=== PATIENT | female | born 1960 | race Caucasian/White ===

== ENCOUNTER 2021-06-25 14:07 | Outpatient (CLI) | payer BC, SELFPAY ==
--- NOTE | ~2021-06-25 | US_ITS ---
EXAMINATION: US arterial ankle brachial ind DATE: 06/25/2021 14:40 INDICATION: Lower limb pain with numbness and tingling in the bilateral feet. TECHNIQUE: Segmental pressures and plethysmographic and Doppler waveforms of the brachial and lower e xtremity arteries were obtained. COMPARISON: None. FINDINGS: Right and left brachial artery pressures of 128 mm Hg and 140 mm Hg, respectively, are concordant (no rmal difference <= 30 mmHg). The right ankle-brachial index (CARMITA) is 0.83 (normal >= 0.9-1.0). The right great toe-brachial index (TBI) is 0.50 (normal >= 0.65). Arterial Doppler waveforms are biphasic with brisk systolic upstrokes at both the right posterior tibial and dorsalis pedis arteries. The left CARMITA is 0.85. The left TBI is 0.74. Arterial Doppler waveforms are biphasic with brisk systol ic upstrokes at both the left posterior tibial and dorsalis pedis arteries. IMPRESSION: 1. Mild arterial occlusive disease to the bilateral lower limbs with mildly decreased bilateral ABIs and mildly decreased right TBI. Reviewed, dictated and finalized at location A. IMPRESSION: 1. Mild arterial occlusive disease to the bilateral lower limbs with mildly dec reased bilateral ABIs and mildly decreased right TBI.
== END 2021-06-25 14:08 | disposition home or self-care (01) ==
LOC: ANHIMG 14:15
PROVIDERS: PCP Nurse Practitioner Adult Health; Visit Provider Nurse Practitioner Adult Health
DX: M79.669 Pain in unspecified lower leg (principal); I70.209 Unspecified atherosclerosis of native arteries of extremities, unspecified extremity
CPT/HCPCS: 93922

== ENCOUNTER 2023-01-22 12:51 | Inpatient (IN) | payer BC, SELFPAY ==
[2023-01-22] VITALS (15 sets, daily range): BP systolic 118–137; BP diastolic 64–84; PULSE 96–117; RESP 13–34; TEMP 36.2–37.1; O2SAT 96–98; BMI 25.4
--- NOTE | ~2023-01-22 | CT_ITS ---
EXAMINATION: CT abdomen pelvis w con DATE: 01/22/2023 14:09 INDICATION: Right lower quadrant abdominal pain. Epigastric pressure. Nausea and vomiting. TECHNIQUE: Computed tomography (CT) of the abdomen and pelvis was performed with 100 CC Omnipaque 350 intravenous contrast. Automated exposure control and iterative reconstruction technique were employe d. Exam dose: 362.47 mGy-cm total exam DLP. COMPARISON: 09/2017 CT abdomen pelvis FINDINGS: The lung bases are clear. Normal heart size. No pericardial or pleural effusion. Small sliding hiatal hernia. Status post cholecystectomy. No hepatic, splenic, pancreatic, and adrenal or suspicious renal space o ccupying mass lesion. There is a small right renal cyst. There is a partially calcified exophytic low er pole left renal cyst Approximately 3.5 mm lower pole nonobstructing left renal calculus. Suggestion of a subtle pinpoint n onobstructing lower pole right renal calculus. No ureteral calculus or hydroureteronephrosis. The uri nary bladder is unremarkable. Normal caliber and atherosclerotic calcification of the abdominal aorta and iliac arteries. No intrap eritoneal or retroperitoneal or pelvic mass lesion or adenopathy or ascites. Up to 3 subcentimeter mildly dilated small bowel segments with air-fluid levels are noted into the pe lvic area, with transition in the right lower quadrant. There is some edema of the mesentery in the r ight lower quadrant. There is mild free fluid in the right paracolic gutter and dependent pelvis. Retained cecal mesentery with medially directed cecum overlying the midline of the abdomen.. Status post hysterectomy. Bladder unremarkable. Included skeletal structures are unremarkable. IMPRESSION: Partial small bowel obstruction suggested transition point in the right lower quadrant, with some edema of the mesentery in this region Minimal ascites 3.5 mm lower pole left renal nonobstructing calculus and suggestion of subtle pinpoint nonobstructing lower pole right renal calculus Status post cholecystectomy Small sliding hiatal hernia Reviewed, dictated and finalized at Location A. Reviewed, dictated and finalized at location B. IMPRESSION: Partial small bowel obstruction suggested transition point in the right lower quadrant, with some edema of the mesentery in this region Minimal ascites 3.5 mm lower pole left renal nonobstructing calculus and suggestion of subtle p inpoint nonobstructing lower pole right renal calculus Status post cholecystectomy Small sliding hiatal hernia
--- NOTE | ~2023-01-22 | XR_ITS ---
EXAMINATION: XR sm bowel follow through WS DATE: 01/23/2023 12:30 INDICATION: Small bowel obstruction. TECHNIQUE: Oral contrast was administered, and a time course of radiographs of the abdomen was obtain ed. Fluoroscopy of the small bowel was not performed. Fluoroscopy exposure time was 0 minutes. The to tania number of images was 5. COMPARISON: CT abdomen and pelvis 01/22/2023 FINDINGS: Surgical clips in the right upper quadrant are likely from cholecystectomy. There are multiple dilate d loops of small bowel. The distal small bowel is decompressed. The colon is decompressed. All of the contrast remains within the stomach and dilated small bowel at 4 hours. IMPRESSION: 1. High-grade small bowel obstruction. Reviewed, dictated and finalized at location A.
--- NOTE | ~2023-01-22 | CT_ITS ---
EXAMINATION: CT abdomen pelvis wo con DATE: 01/28/2023 12:46 INDICATION: Abdominal swelling. TECHNIQUE: Computed tomography (CT) of the abdomen and pelvis was performed without intravenous contr ast. Automated exposure control and iterative reconstruction technique were employed. The dose-length product was 440.62 mGy-cm. COMPARISON: CT abdomen and pelvis 01/22/2023 FINDINGS: There is mild emphysema. A calcified left lung nodule is consistent with old granulomatous disease. There are small pleural effusions, right worse than left. There are airspace opacities with volume loss and air bronchograms involving right middle lobe and right lower lobe, likely atelectasis . There is mild atelectasis in inferior left lung. The heart size is normal. There are coronary arter y calcifications. No pericardial effusion. The liver and spleen are normal. There are changes of chol ecystectomy. The pancreas and adrenal glands are normal. There are two 2 mm stones in right kidney. T here are 5 mm and 1 mm stones in left kidney. There is an 11 mm peripherally calcified mass of left k idney, likely benign. There are dilated loops of small bowel with out focal transition point. The regan endix is normal. There is a small volume of ascites. There is gas in the bladder lumen, likely from r ecent instrumentation. Anterior skin nallely are noted. IMPRESSION: 1. Small volume of ascites. 2. Small pleural effusions. 3. Dilated small bowel without focal transition point, likely adynamic ileus. Reviewed, dictated and finalized at location A.
--- NOTE | ~2023-01-22 | XR_ITS ---
EXAM: XR abdomen/kub 1V DATE: 01/26/2023 18:26 HISTORY: distention . COMPARISON: None available. FINDINGS: Cholecystectomy clips. New midline skin nallely. Right basilar atelectasis/consolidation a nd possible small right pleural effusion. Multiple loops dilated small bowel, overall slightly decrea sed in diameter since the previous study. No organomegaly. No abnormal abdominal calcification. Degen erative changes in the spine and hips. IMPRESSION: Decreasing small bowel dilation, likely representing improving obstruction. Reviewed, dictated and finalized at location K. IMPRESSION: Decreasing small bowel dilation, likely representing improving obst ruction.
--- NOTE | ~2023-01-22 | XR_ITS ---
Supine views of the abdomen Clinical history: Small bowel obstruction Findings: Multiple dilated loops of small bowel are present, predominantly in the left abdomen and lo wer abdomen. No free air evident. Cholecystectomy clips noted. No abnormal mass lesion or calcificati on is seen. Osseous structures are intact. Impression: Small bowel obstruction. Reviewed, dictated and finalized at [facility]. Impression: Small bowel obstruction.
--- NOTE | 2023-01-22 13:17 | ECG_ITS ---
Measurements Intervals [place] Rate: 113 P: 67 TN: 152 QRS: 88 QRSD: 116 T: 41 QT: 329 QTc: 453 Interpretive Statements SINUS TACHYCARDIA POSSIBLE LEFT ATRIAL ENLARGEMENT RIGHT BUNDLE BRANCH BLOCK BASELINE ARTIFACT- AVR, V4 ABNORMAL ECG NO PREVIOUS ECG AVAILABLE FOR COMPARISON Electronically Signed On 01-22-2023 16:16:42 CDT by Ervin Davalos D.O.
[2023-01-22] MEDS: MORPHINE SULFATE (*CRX) 2 MG/ML INJ IV PUSH (13:38)
[2023-01-22 13:41] LABS: Basophils Percent Auto 0.1 % (0.2-1.2); Eosinophils Percent Auto 0.2 % (0-4.4); Hematocrit 41.3 % (37.0-47.0); Hemoglobin 14.3 g/dL (12.0-15.0); Immature Granulocyte Absolute 0.05 K/mm3 (0.00-0.031); Immature Granulocyte Percent A 0.4 % (0-0.5); Lymphocytes Absolute Auto 1.72 K/mm3 (0.9-3.2); Lymphocytes Percent Auto 12.1 % (18.3-44.2); Mean Corpuscular HGB Conc 34.6 g/dl (32-36); Mean Corpuscular Volume 95.4 fl (80-100); Mean Platelet Volume 9.5 fl (7.4-10.4); Monocytes Absolute Auto 0.6 K/mm3 (0.1-0.6); Monocytes Percent Auto 4.4 % (2.6-8.5); Neutrophils Absolute Auto 11.8 K/mm3 (1.3-6.7); Neutrophils Percent Auto 82.8 % (45.5-73.1); Platelet Count Result 263 k/mm3 (150-375); Red Blood Count 4.33 M/mm3 (4.2-5.4); Red Cell Distribution Width 12.6 % (11.5-14.5); White Blood Count 14.3 K/mm3 (4.5-10.0)
--- NOTE | 2023-01-22 13:41 | ED.GENADULT ---
HPI - General Adult General Chief complaint: Abdominal Pain Stated complaint: abd pain Time Seen by Provider: 01/22/23 13:11 History of Present Illness HPI narrative: Patient is a 62-year-old female who presents ER with epigastric pain. Radiates to her back. Aching. Woke up with it at 4 AM. Has history of gastric ulcers and she thought it may be related. She did have some nausea and vomiting. No dark blood and no coffee-ground appearance. No urinary frequency urgency or dysuria. No urge to have a bowel movement. No diarrhea. Related Data Home Medications Medication Instructions Recorded Confirmed clopidogrel 75 mg tablet 75 mg PO DAILY 01/22/21 01/22/23 lisinopril 5 mg tablet 5 mg PO DAILY 01/22/21 01/22/23 metformin 850 mg tablet 850 mg PO BID 01/22/21 01/22/23 montelukast 10 mg tablet 10 mg PO HS 01/22/21 01/22/23 famotidine 20 mg tablet 20 mg PO DAILY 01/22/23 01/22/23 rosuvastatin 20 mg tablet 20 mg PO HS 01/22/23 01/22/23 valacyclovir 500 mg tablet 500 mg PO HS 01/22/23 01/22/23 Allergies Allergy/AdvReac Type Severity Reaction Status Date / Time hydrocodone AdvReac Severe NAUSEA AND Verified 01/22/23 13:41 VOMITING Review of Systems Review of Systems: All systems reviewed & are unremarkable except as noted in HPI and below Constitutional: Constitutional: Denies chills and Denies fever(s) Cardiovascular: Cardiovascular: Denies chest pain, Denies rapid heart rate and Denies radiating jaw, neck or arm pain Respiratory: Respiratory: Denies cough, Denies dyspnea and Denies wheezing Gastrointestinal: Gastrointestinal: Reports abdominal pain, Denies constipation, Denies diarrhea, Reports nausea and Reports vomiting Genitourinary: Genitourinary: Denies nocturia, Denies dysuria and Denies flank pain PMF Past Medical History Medical History COPD (chronic obstructive pulmonary disease) Coronary artery disease Diabetes History of TIA (transient ischemic attack) Reported history of multiple TIAs over 10 years ago and subsequently was started on Plavix Irritable bowel Surgical History Surgical History History of cholecystectomy Open cholecystectomy History of total abdominal hysterectomy and bilateral salpingo-oophorectomy Family History Family History Mother Hypertension Sibling Breast cancer Diabetes mellitus Hypertension Social History Social History Smoking status: Heavy tobacco smoker Tobacco type: cigarettes Alcohol intake: never Substance use: never Substance use type: does not use Lack of Transportation: No Lack of Food: Sometimes True Current Housing: I Have Housing Concerned About Future Housing: No Difficulty Paying Gas/Electric Bills: YES Difficulty Paying for Meds: No Currently Unemployed: No Education: Decline to Answer Difficulty w/ Childcare or Family Care: No Spiritual care concerns: No Exam Narrative: GENERAL: Well-appearing, well-nourished, and in no acute distress. HEAD: Normocephalic, atraumatic. EYES: PERRL and EOMI. ENT: Mucous membranes moist. CHEST: Clear to auscultation. No respiratory distress. HEART: Regular rate and rhythm. Normal peripheral pulses. ABDOMEN: Soft, tender to palpation right lower quadrant with guarding, nondistended. EXTREMITIES: Normal range of motion. No edema. SKIN: Warm, dry, no rash. NEURO: Alert and oriented x3. PSYCH: Normal mood and affect. Course Course Emergency Course: Patient resting comfortably. Informed of results. Admit to hospitalist service. General surgery consulting. No need for NG tube at this time as patient is not vomiting. Vital Signs Vital signs: Vital Signs Temperature 97.1 F L 01/22/23 13:00 Pulse Rate 117 H 01/22/23 13:00 Respiratory Rate 16
[2023-01-22 13:48] LABS: Alanine Aminotransferase 19 U/L (6-35); Albumin Level 4.6 g/dL (3.5-5.1); Alkaline Phosphatase 72 U/L (38-126); Anion Gap 9 mmol/L (8-16); Aspartate Amino Transferase 26 U/L (14-36); Bilirubin,Total 0.6 mg/dL (0.2-1.3); Blood Urea Nitrogen 8 mg/dL (7-17); Calcium 9.7 mg/dL (8.4-10.2); Carbon Dioxide 26 mmol/L (22-30); Chloride 101 mmol/L (98-107); Estimated CRCL calculation 86 ml/min; Estimated Glomerular Filt Rate > 60; Glucose 177 mg/dL (65-110); Lipase 108 U/L (23-300); Potassium 4.1 mmol/L (3.4-5.0); Sodium 136 mmol/L (137-145)
[2023-01-22 13:54] LABS: Partial Thromboplastin Time 24.9 SECONDS (22.3-36.8); Prothrombin Time 12.8 Seconds (11.1-14.7)
[2023-01-22] MEDS: PIPERACILLN/TAZ 3.375GM/NS50ML 3.375 GM/50 ML BAG IVPB ×2 (16:05→23:53)
--- NOTE | 2023-01-22 16:14 | PM.CNGS ---
Assessment and Plan Assessment and plan (1) Small bowel obstruction: Code(s): K56.609 - Unspecified intestinal obstruction, unspecified as to partial versus complete obstruction Status: Acute Assessment and Plan: Patient presents with CT evidence of a small bowel obstruction. Previous surgeries include a total abdominal hysterectomy and open cholecystectomy, which could suggest possible adhesions as a cause. Her WBC count was 14,300 on admission. Will add a lactic acid and repeat labs tomorrow morning. Recommend continuing IV Zosyn for now. No diffuse peritoneal signs on exam. She is is not having any nausea and no vomiting since this morning. Will defer NG tube placement at this time, but would recommend to continue conservative management with bowel rest, IV fluid hydration, and analgesics as needed. Will also order a water-soluble small bowel follow through in the morning to further evaluate. (2) Diabetes: Code(s): E11.9 - Type 2 diabetes mellitus without complications Status: Acute (3) Irritable bowel: Code(s): K58.9 - Irritable bowel syndrome without diarrhea Status: Acute (4) Antiplatelet or antithrombotic long-term use: Code(s): Z79.02 - retirement (current) use of antithrombotics/antiplatelets Status: Acute Assessment and Plan: Recommend holding Plavix for now. (5) Tobacco abuse: Code(s): Z72.0 - Tobacco use Status: Acute Plan I have discussed the patient's case and plan of care with Dr. Delgado. Thank you for allowing us to see the patient in consultation and we will continue to follow along with you. History of Present Illness Consult details Consult date: 01/22/23 Reason for consult: other (Small-bowel obstruction) Requesting physician: Stone Anglin MD Narrative: This is a 62-year-old woman with a history of COPD, type 2 diabetes, IBS, and hypertension who presented to the ER today with complaints of epigastric abdominal pain, vomiting, and bloating starting this morning. She reports waking up around 4:30 a.m. this morning with epigastric abdominal pain. She has a history of gastric ulcers and is taking omeprazole. Initially, she thought the pain could be related to ulcers. She began to feel very bloated and later in the morning developed nausea and had 3 episodes of vomiting. Denies any bloody or coffee-ground emesis. Due to the persistent pain, she came into the ER for evaluation. She presented with a heart rate in the 110's and afebrile. Labs [place] [address] scan of the abdomen and pelvis showed a partial small bowel obstruction with a transition point the right lower quadrant and some edema of the mesentery in this region. Also noted was minimal ascites, small sliding hiatal hernia, and 3.5 mm lower pole left renal nonobstructing calculus. Our service was consulted by the ED physician. She is being admitted to the hospitalist service. The patient is seen in the ER at this time. She denies ever having a bowel obstruction in the past. Previous abdominal surgeries include an open cholecystectomy and total abdominal hysterectomy with bilateral salpingo oophorectomy many years ago. The patient is additionally taking Plavix reportedly for history of multiple TIAs over 10 years ago. Her last dose was around 6:00 a.m. this morning. She is still feeling bloated and does not feel the morphine has helped with her pain, which she rates at a 7/10. Her last bowel movement was yesterday morning and she reports a small amount of flatus this morning. Review of Systems Review of Systems: All systems reviewed & are unremarkable except as noted in HPI and below Constitutional: Constitutional: Reports no additional constitutional complaints, Denies chills, Denies fatigue and Denies fever(s) Eyes: Eyes: Reports no additional eye complaints ENT: Reports system reviewed and no additional complaints, except as documented
[2023-01-22 17:05] LABS: Lactic Acid Reflex 1.5 mmol/L (0.7-2.0)
--- NOTE | 2023-01-22 17:30 | PM.IMHP ---
H&P: HPI History of Present Illness Date/Time: 01/22/23 17:30 Chief Complaint: Abdominal pain. Narrative: This is a pleasant 62-year-old female smoker with history of TIA, hypertension, diabetes, COPD, GERD, and peptic ulcers who presented to the emergency department from home for evaluation of abdominal pain. Patient provides the following history. She felt fine when she went to bed last night. At about 04:00 she was wakened from sleep with significant abdominal bloating and a pressure-like discomfort diffusely around her abdomen and through to the back in a bandlike fashion. She had some nausea with that as well and tried to have a muffin for breakfast this morning though she vomited shortly after eating and she has had [address] of the abdomen pelvis showed a partial small-bowel obstruction with suggestions of a transition point in right lower quadrant and some edema of the mesentery in the same region. She has never had similar symptoms; reports history of open cholecystectomy and hysterectomy many years ago. As she is not currently vomiting she is being placed on bowel rest and hopefully with supportive care this will improve. She has been seen by Dr. Delgado, surgery, and he will be following along. Currently she is feeling a bit better and she does have some bowel sounds on exam. Last bowel movement was sometime yesterday and was normal for her, reportedly she suffers from IBS-D. Review of Systems Review of Systems: Twelve systems were reviewed. No fever, chills, or sweats. No recent cold or flu symptoms. GERD symptoms are well controlled on omeprazole. She has not noticed any blood in the vomit or stools. Recent hemoglobin A1c was 7.9%. She was placed on glimepiride in addition to her metformin recently. She admits that she does not check her glucose much. No blurry vision, polydipsia, or polyuria. Patient reports a history of coronary artery disease but does not recall how she got that diagnosis. She has never had a cardiac catheterization. Presumably stress test. She denies exertional chest pain shortness a breath. She is on clopidogrel but states she was placed on that following the TIA and not an MT. Except as documented, all other systems were reviewed and are negative. [facility] Past Medical History Medical History (Updated 01/22/23 @ 23:02 by Shalini Groves PA-C) Antiplatelet or antithrombotic long-term use Chronic obstructive pulmonary disease Coronary artery disease History of TIA (transient ischemic attack) Reported history of multiple TIAs over 10 years ago and subsequently was started on Plavix Irritable bowel Renal calculus Tobacco abuse Transient ischemic attack Type 2 diabetes mellitus Surgical History Surgical History History of cholecystectomy Open cholecystectomy History of total abdominal hysterectomy and bilateral salpingo-oophorectomy Family History Family History Mother Hypertension Sibling Breast cancer Diabetes mellitus Hypertension Social History Social History (Updated 01/22/23 @ 22:35 by Shalini Groves PA-C) Social History: Surrogate medical decision maker: Russell Mueller, friend. Code status: Full code. Smoking packs per day: 1.5 Smoking cigarettes per day: 30.0 Smoking status: Heavy tobacco smoker Tobacco type: cigarettes Alcohol intake: never Substance use: never Substance use type: does not use Lack of Transportation: No Lack of Food: Sometimes True Current Housing: I Have Housing Concerned About Future Housing: No Difficulty Paying Gas/Electric Bills: YES Difficulty Paying for Meds: No Currently Unemployed: No Education: Decline to Answer Difficulty w/ Childcare or Family Care: No Spiritual care concerns: No Meds Home Medications and Allergies Home Medications Medication Instructions Recorded Confi
--- NOTE | 2023-01-22 17:56 | ADMGEN ---
This patient, Annette Camacho, was admitted to [facility] Surg Room 312-01. Patient/family oriented to hospital policies and general routines including ID bracelet, bed and alarms, visiting hours, pain management, procedures, bathroom and other care routines, personal items, smoking policy, room service/diet, and visiting hours. Information on how to activate the Rapid Response Team has been discussed. Patient/Family are encouraged to report perceived risks to care and to ask questions if they do not understand what they are told or what they should do.
[2023-01-23] VITALS (15 sets, daily range): BP systolic 115–172; BP diastolic 57–122; PULSE 74–105; RESP 14–28; TEMP 36.1–37.4; O2SAT 90–100; BMI 25.0
[2023-01-23] MEDS: ONDANSETRON INJ 4 MG/2 ML VIAL IV PUSH ×2 (00:01→10:47)
[2023-01-23 00:18] LABS: Glucose Point of Care 158 mg/dl (65-105)
[2023-01-23] MEDS: SODIUM CHLORIDE 0.9% IV 1,000 ML 125 ML IV CONT ×3 (01:23→22:03)
[2023-01-23] MEDS: PIPERACILLN/TAZ 3.375GM/NS50ML 3.375 GM/50 ML BAG IVPB ×3 (05:33→19:27)
[2023-01-23 05:49] LABS: Glucose Point of Care 151 mg/dl (65-105)
[2023-01-23 06:25] LABS: Basophils Percent Auto 0.1 % (0.2-1.2); Eosinophils Absolute Auto 0.1 K/mm3 (0-0.3); Eosinophils Percent Auto 0.4 % (0-4.4); Hematocrit 39.8 % (37.0-47.0); Hemoglobin 13.3 g/dL (12.0-15.0); Immature Granulocyte Absolute 0.04 K/mm3 (0.00-0.031); Immature Granulocyte Percent A 0.3 % (0-0.5); Lymphocytes Absolute Auto 2.08 K/mm3 (0.9-3.2); Lymphocytes Percent Auto 18.2 % (18.3-44.2); Mean Corpuscular HGB Conc 33.4 g/dl (32-36); Mean Corpuscular Hemoglobin 32.4 pg (26-34); Mean Corpuscular Volume 97.1 fl (80-100); Mean Platelet Volume 9.5 fl (7.4-10.4); Monocytes Absolute Auto 0.9 K/mm3 (0.1-0.6); Monocytes Percent Auto 7.7 % (2.6-8.5); Neutrophils Absolute Auto 8.4 K/mm3 (1.3-6.7); Neutrophils Percent Auto 73.3 % (45.5-73.1); Platelet Count Result 255 k/mm3 (150-375); Red Cell Distribution Width 12.6 % (11.5-14.5); White Blood Count 11.5 K/mm3 (4.5-10.0)
[2023-01-23 06:45] LABS: Lactic Acid Reflex 0.9 mmol/L (0.7-2.0)
[2023-01-23 06:46] LABS: Anion Gap 6 mmol/L (8-16); Blood Urea Nitrogen 7 mg/dL (7-17); Calcium 8.8 mg/dL (8.4-10.2); Carbon Dioxide 26 mmol/L (22-30); Chloride 106 mmol/L (98-107); Estimated CRCL calculation 71 ml/min; Estimated Glomerular Filt Rate > 60; Glucose 145 mg/dL (65-110); Magnesium 1.9 mg/dL (1.6-2.3); Potassium 4.1 mmol/L (3.4-5.0); Sodium 138 mmol/L (137-145)
[2023-01-23] MEDS: PANTOPRAZOLE SODIUM IV 40 MG VIAL IV PUSH (10:47)
[2023-01-23] MEDS: MORPHINE SULFATE (*CRX) 4 MG/ML INJ IV PUSH (10:55)
[2023-01-23 11:31] LABS: Glucose Point of Care 188 mg/dl (65-105)
--- NOTE | 2023-01-23 14:12 | PM.IMPN ---
Progress Note: A&P Assessment and Plan (1) Small bowel obstruction: Code(s): K56.609 - Unspecified intestinal obstruction, unspecified as to partial versus complete obstruction Status: Acute Assessment and Plan: Patient presents with abdominal pain and found to have small-bowel obstruction on imaging. GI was consulted. NG tube was not placed. Small-bowel series shows high-grade small-bowel obstruction. Surgery is being planned. (2) Type 2 diabetes mellitus: Code(s): E11.9 - Type 2 diabetes mellitus without complications Status: Acute Assessment and Plan: The patient's blood glucose was reviewed on 01/23 Glucose remains reasonably well controlled. Continue AccuCheks covering with sliding scale. Hypoglycemia protocol available as needed. Continue to monitor (3) Antiplatelet or antithrombotic long-term use: Code(s): Z79.02 - care home (current) use of antithrombotics/antiplatelets Status: Acute Assessment and Plan: Patient reported history of multiple TIAs over 10 years ago and subsequently was started on Plavix. Plavix currently on hold. Resume when able. (4) Chronic obstructive pulmonary disease: Code(s): J44.9 - Chronic obstructive pulmonary disease, unspecified Status: Acute Assessment and Plan: No wheezing noted. Continue to follow clinically. (5) Tobacco abuse: Code(s): Z72.0 - Tobacco use Status: Acute Assessment and Plan: Smoking cessation was encouraged and was discussed. (6) Renal calculus: Code(s): N20.0 - Calculus of kidney Status: Acute Assessment and Plan: Nonobstructing renal calculi noted bilaterally, not an acute issue. Subjective Date/time seen: 01/23/23 14:12 Interval history: 62yo female with diabetes and COPD here for abdominal pain found to have SBO. Patient had nausea and vomiting last evening. This has improved. Still with the abdominal pain that is relatively unchanged. No chest pain or shortness of breath. No flatus or bowel movements. Exam Narrative: AF 98.4 135/67 96 14 97%ra Gen - NARD Chest - CTA bilaterally, nml RR CV - RRR S1/S2 Abd -soft. No bowel sounds. Distended and diffusely tender. Ext - No pedal edema Psych - Nml mood and affect Skin - Warm and dry Objective Data Vital Signs Vital Signs: Vital Signs - 24 hr 01/22/23 14:17 01/22/23 16:01 01/22/23 16:15 Temperature Pulse Rate 100 102 H 99 Respiratory Rate 13 16 19 Blood Pressure Pulse Oximetry 97 97 98 Oxygen Delivery 01/22/23 16:16 01/22/23 17:31 01/22/23 22:00 Temperature 97.5 F L 98.7 F Pulse Rate 101 H 96 97 Respiratory Rate 17 16 16 Blood Pressure 127/84 130/76 118/75 Pulse Oximetry 98 98 96 Oxygen Delivery 01/22/23 20:00 01/23/23 00:00 01/23/23 03:57 Temperature 97.8 F 98.4 F Pulse Rate 97 95 96 Respiratory Rate 16 15 14 Blood Pressure 135/70 135/67 Pulse Oximetry 96 96 97 Oxygen Delivery Room Air 01/23/23 11:00 Temperature Pulse Rate Respiratory Rate Blood Pressure Pulse Oximetry Oxygen Delivery Room Air Intake/Output Intake/Output: Intake & Output 01/20/23 01/21/23 01/22/23 01/23/23 23:59 23:59 23:59 23:59 Intake Total 50 1100 Balance 50 1100 Meds/Results Medications: Active Medications Generic Name Dose Route Start Last Admin Trade Name Freq PRN Reason Stop Dose Admin Dextrose 12.5 gm 01/22/23 23:15 Dextrose 50% 25 Gm/50 Ml Syringe IV PUSH PRN PRN Hypoglycemia Protocol Glucagon 1 mg 01/22/23 23:15 Glucagon For Inj 1 Mg Vial IM PRN PRN Hypoglycemia Protocol Glucose 15 gm 01/22/23 23:15 Glucose Oral Gel 15 Gm Of Glucse In 37.5 Gm Tube PO PRN PRN Hypoglycemia Protocol Piperacillin/Tazobactam/Dextrose 3.375 gm in 50 mls @ 100 mls/hr 01/23/23 00:00 01/23/23 12:12 Zosyn 3.375 Gm/Ns 50 Ml IVPB 100 mls/hr Q6HR SUSHMA
--- NOTE | 2023-01-23 14:56 | WPDPN ---
Progress Note: A&P Assessment and Plan (1) Small bowel obstruction: Code(s): K56.609 - Unspecified intestinal obstruction, unspecified as to partial versus complete obstruction Status: Acute Assessment and Plan: Patient is a high-grade small-bowel obstruction with without obvious evidence of perforation or any bowel at this time. This has been going on for over 48hours and so she will have to be managed surgically. Non operative management has successful and a small bowel series shows a high-grade small bowel obstruction without passage of any contrast into the for hours. She is on Plavix but has been held for almost 2 days. Unfortunately this will increase the chances of intraoperative and postoperative bleeding. Also discussed with her the possible risk of bowel resection for any compromised bowel. She understands and agrees to proceed with surgery. Subjective Date/time seen: 01/23/23 14:56 Interval history: Patient is still having abdominal pain. Has had no flatus or bowel movements. Did have some emesis early this morning. Small-bowel series was done showing high-grade its distal small-bowel obstruction. White blood cell count is decreased and she is on IV antibiotics. She remains hemodynamically stable. Review of Systems Review of Systems: The remainder of the review of systems to include constitutional, HEENT, cardiovascular, respiratory, GI, , integumentary, musculoskeletal, endocrine, immunologic, hematologic, psychiatric, and neurologic are all negative except for which is mentioned above in the HPI. Exam Const: General: comfortable and no acute distress Neck: Neck: supple and no JVD Resp: Effort & Inspection: normal respiratory effort Auscultation: clear to auscultation bilaterally Cardio: Rate: regular rate Rhythm: regular rhythm GI: GI Palp: Yes Soft to palpation Other: Abdomen is soft and moderately distended. It is soft to palpation without severe tenderness. No generalized peritoneal signs or guarding is noted. Neuro: Speech: normal speech Sensory Exam: normal sensation Extrem: General: normal to inspection Psych: Mental Status: mental status grossly normal Affect: normal affect Objective Data Vital Signs Vital Signs: Vital Signs - 24 hr 01/22/23 16:01 01/22/23 16:15 01/22/23 16:16 Temperature Pulse Rate 102 H 99 101 H Respiratory Rate 16 19 17 Blood Pressure 127/84 Pulse Oximetry 97 98 98 Oxygen Delivery 01/22/23 17:31 01/22/23 22:00 01/22/23 20:00 Temperature 36.4 C L 37.1 C Pulse Rate 96 97 97 Respiratory Rate 16 16 16 Blood Pressure 130/76 118/75 Pulse Oximetry 98 96 96 Oxygen Delivery Room Air 01/23/23 00:00 01/23/23 03:57 01/23/23 11:00 Temperature 36.6 C 36.9 C Pulse Rate 95 96 Respiratory Rate 15 14 Blood Pressure 135/70 135/67 Pulse Oximetry 96 97 Oxygen Delivery Room Air Intake/Output Intake/Output: Intake & Output 01/20/23 01/21/23 01/22/23 01/23/23 23:59 23:59 23:59 23:59 Intake Total 50 1100 Balance 50 1100 Meds/Results Medications: Active Medications Generic Name Dose Route Start Last Admin Trade Name Freq PRN Reason Stop Dose Admin Dextrose 12.5 gm 01/22/23 23:15 Dextrose 50% 25 Gm/50 Ml Syringe IV PUSH PRN PRN Hypoglycemia Protocol Glucagon 1 mg 01/22/23 23:15 Glucagon For Inj 1 Mg Vial IM PRN PRN Hypoglycemia Protocol Glucose 15 gm 01/22/23 23:15 Glucose Oral Gel 15 Gm Of Glucse In 37.5 Gm Tube PO PRN PRN Hypoglycemia Protocol Piperacillin/Tazobactam/Dextrose 3.375 gm in 50 mls @ 100 mls/hr 01/23/23 00:00 01/23/23 12:12 Zosyn 3.375 Gm/Ns 50 Ml IVPB 100 mls/hr Q6HR SUSHMA Administration Acetaminophen 1,000 mg in 100 mls @ 400 mls/hr 01/22/23 16:01 Ofirmev 1,000 Mg Ivpb IVPB 01/23/23 16:00 Q6H PRN Mild Pain (1-3) or Fever Sodium Chloride 1,000 mls @ 125 mls/hr 01/22/23 16:05 01/23/23 10
[2023-01-23 16:48] LABS: Glucose Point of Care 161 mg/dl (65-105)
--- NOTE | 2023-01-23 16:57 | WPDANESEPPF ---
Anes - Initial Pre Proc Eval Procedure: Operation Date: 01/23/23 17:00 Proposed Procedures p Exploratory Laparotomy for Small Bowel Obstruction - Dwayne Delgado MD Date/Time: 01/23/23 16:57 Surgeon: Dolores Aldana MD Pre Op Diagnosis: SBO Patient Data Age: 62 Gender: F Height: 1.52 m Weight: 58.1 kg Last Vital Signs Temp 36.2 C L 01/23/23 14:00 Pulse 75 01/23/23 14:00 Resp 22 H 01/23/23 14:00 BP 139/78 01/23/23 14:00 Pulse Ox 96 01/23/23 14:00 O2 Del Method Room Air 01/23/23 11:00 Allergies Allergy/AdvReac Type Severity Reaction Status Date / Time hydrocodone AdvReac Severe NAUSEA AND Verified 01/22/23 13:41 VOMITING Home Medications Medication Instructions Recorded Confirmed Type clopidogrel 75 mg tablet 75 mg PO DAILY 01/22/21 01/22/23 History lisinopril 5 mg tablet 5 mg PO DAILY 01/22/21 01/22/23 History metformin 850 mg tablet 850 mg PO BID 01/22/21 01/22/23 History montelukast 10 mg tablet 10 mg PO HS 01/22/21 01/22/23 History famotidine 20 mg tablet 20 mg PO DAILY 01/22/23 01/22/23 History rosuvastatin 20 mg tablet 20 mg PO HS 01/22/23 01/22/23 History valacyclovir 500 mg tablet 500 mg PO HS 01/22/23 01/22/23 History Laboratory Tests 01/22/23 01/23/23 01/23/23 16:49 00:13 05:45 WBC RBC Hgb Hct MCV MCH MCHC RDW Plt Count MPV Immature Gran % (Auto) Neut % (Auto) Lymph % (Auto) [place] % (Auto) Eos % (Auto) Baso % (Auto) Lymph # (Auto) [place] # (Auto) Eos # (Auto) Baso # (Auto) Abs Immat Gran (auto) Absolute Neuts (auto) Absolute Nucleated RBC Nucleated RBC % Sodium Potassium Chloride Carbon Dioxide Anion Gap BUN Creatinine Estim Creat Clear Calc Estimated GFR Glucose POC Capillary Glucose 158 mg/dl H mg/dl 151 mg/dl H mg/dl (65-105) (65-105) Lactic Acid 1.5 mmol/L mmol/L (0.7-2.0) Calcium Magnesium Blood Type Antibody Screen 01/23/23 01/23/23 01/23/23 05:55 05:55 05:55 WBC 11.5 K/mm3 H K/mm3 (4.5-10.0) RBC 4.10 M/mm3 L M/mm3 (4.2-5.4) Hgb 13.3 g/dL g/dL (12.0-15.0) Hct 39.8 % % (37.0-47.0) MCV 97.1 fl fl (80-100) MCH 32.4 pg pg (26-34) MCHC 33.4 g/dl g/dl (32-36) RDW 12.6 % % (11.5-14.5) Plt Count 255 k/mm3 k/mm3 (150-375) MPV 9.5 fl fl (7.4-10.4) Immature Gran % (Auto) 0.3 % % (0-0.5) Neut % (Auto) 73.3 % H % (45.5-73.1) Lymph % (Auto) 18.2 % L % (18.3-44.2) [place] % (Auto) 7.7 % % (2.6-8.5) Eos % (Auto) 0.4 % % (0-4.4) Baso % (Auto) 0.1 % L % (0.2-1.2) Lymph # (Auto) 2.08 K/mm3 K/mm3 (0.9-3.2) [place] # (Auto) 0.9 K/mm3 H K/mm3 (0.1-0.6) Eos # (Auto) 0.1 K/mm3 K/mm3 (0-0.3) Baso # (Auto) 0.0 K/mm3 K/mm3 (0.0-0.1) Abs Immat Gran (auto) 0.04 K/mm3 H K/mm3 (0.00-0.031) Absolute Neuts (auto) 8.4 K/mm3 H K/mm3 (1.3-6.7) Absolute Nucleated RBC 0.0 K/mm3 K/mm3 (0.0-0.012) Nucleated RBC % 0.0 % % (0.0-0.2) Sodium 138 mmol/L mmol/L (137-145) Potassium 4.1 mmol/L mmol/L (3.4-5.0) Chloride 106 mmol/L mmol/L (98-107) Carbon Dioxide 26 mmol/L mmol/L (22-30) Anion Gap 6 mmol/L L mmol/L (8-16) BUN 7 mg/dL mg/dL (7-17) Creatinine 0.50 mg/dL L mg/dL (0.7-1.0) Estim Creat Clear Calc 71 ml/min ml/min Estimated GFR
[2023-01-23] MEDS: LACTATED RINGERS 1,000 ML 30 ML IV CONT ×2 (17:02→19:05)
--- NOTE | 2023-01-23 17:04 | WPDHPUPDATE1 ---
History and Physical Update Update Date/Time: 01/23/23 17:04 History and Physical has been reviewed, including an updated exam of the patient. There are NO changes in the patient's condition. Risks, benefits, and alternatives have been discussed and questions answered. Patient agrees to proceed with procedure.
[2023-01-23] MEDS: BUPivacaine HCL 0.5% PF 30 ML VIAL INFILTRATE (18:08)
--- NOTE | 2023-01-23 18:51 | W.PM.PROC2 ---
Procedure Note - Detailed Date of Procedure 01/23/23 Pre-op Diagnosis High-grade small-bowel obstruction. Post-op Diagnosis Same Procedure Performed Exploratory laparotomy with abdominal adhesiolysis. Surgeon Dwayne Delgado MD [employer] TOAN Raoy Anesthesia General Indications Patient is a 62-year-old female who presented with abdominal pain and nausea and vomiting. CT scan showed a distal small-bowel obstruction. She had a small bowel series showed a high-grade small bowel obstruction without any contrast passing into the colon at 4 hrs. Findings single adhesion of the omentum and tip of the appendix to the mesentery in the right lower quadrant trapping a loop of the distal jejunum causing constriction. There was no twisting of the mesentery and no ischemia of the bowel. Some adhesions of the omentum to the right upper quadrant which were not released. Description of Procedure After informed consent was obtained patient brought to the operating room she is placed in supine position and general endotracheal anesthesia was administered. A nasogastric tube was placed to decompress the stomach and a Aguilar catheter placed to decompress the bladder. Time-out was then performed correctly identifying the patient as well as procedure to be performed. She was already on scheduled IV antibiotics. I then made a midline incision starting in the mid epigastric region extending it down to [facility] between the umbilicus and pubic symphysis. Dissection was carried down through the subcutaneous tissue electrocautery and the abdomen was entered just above the umbilicus. Once inside the abdomen I aspirated about 500cc of clear abbasi ascites fluid. I then opened the midline fascia to mesh length of the skin incision with electrocautery. Retractors were placed and then the small bowel was eviscerated. None of the small bowel appeared to be necrotic. I followed the small bowel to a constriction and a single adhesion of the omentum and tip of the appendix to the peritoneum in the right lower quadrant the abdomen. Had trapped a loop of the distal jejunum but the mesentery to the loop did not twist. With electrocautery I divided this adhesion which relieved the constriction. I then ran the small bowel from the distal jejunum proximally all the way to the ligament [place]. No other adhesions were seen. I then milked the small bowel contents back up into the stomach and had aspirated out with the nasogastric tube. A nasogastric tube was in the fundus stomach and was taped in place at that length. I then irrigated out the abdomen copious amounts of sterile saline solution. Hemostasis was excellent. I then proceeded to close the abdomen utilizing looped 1. PDS suture was started at each end of the incision then run to the middle just below the umbilicus. Two sutures then tied together. I then injected Exparel liposomal bupivacaine mix of Marcaine in the subcutaneous tissues around the incision for local anesthetic effect. The subcutaneous tissues then closed utilizing interrupted 3-0 Vicryl sutures and then the skin edges were approximated lysing skin nallely. The incision was then cleaned and a op site was used for final dressing. The patient tolerated the procedure well no complications. All sponges, needles, and instrument counts were correct at the end procedure. EBL was 50___cc. The patient was awakened and taken to recovery in stable and satisfactory condition. Implants None Estimated Blood Loss 50 Drains No Packing No Pathology None sent Complications No immediate complications Condition Stable Disposition PACU [facility] Billing Surgery - Charge Forward: Surgery Billing
[2023-01-23] MEDS: fentaNYL CITRATE INJ (*CRX) 100 MCG/2 ML VIAL 25 MCG IV PUSH ×3 (18:53→19:40)
--- NOTE | 2023-01-23 19:17 | SUR.PHASEI ---
1916: Simple mask removed.
[2023-01-23 19:39] LABS: Glucose Point of Care 181 mg/dl (65-105)
[2023-01-23] MEDS: HYDROmorphone HCL INJ (*CRX) 1 MG/ML SYR IV PUSH (22:06)
[2023-01-24] VITALS (7 sets, daily range): BP systolic 103–122; BP diastolic 44–73; PULSE 75–105; RESP 16–20; TEMP 36.1–36.6; O2SAT 90–100
[2023-01-24 00:19] LABS: Glucose Point of Care 166 mg/dl (65-105)
[2023-01-24] MEDS: PIPERACILLN/TAZ 3.375GM/NS50ML 3.375 GM/50 ML BAG IVPB ×2 (00:59→05:25)
[2023-01-24] MEDS: HYDROmorphone HCL INJ (*CRX) 1 MG/ML SYR IV PUSH ×4 (01:01→15:37)
[2023-01-24 05:36] LABS: Glucose Point of Care 149 mg/dl (65-105)
[2023-01-24] MEDS: SODIUM CHLORIDE 0.9% IV 1,000 ML 125 ML IV CONT ×3 (05:42→23:50)
[2023-01-24 06:56] LABS: Basophils Percent Auto 0.1 % (0.2-1.2); Eosinophils Percent Auto 0.1 % (0-4.4); Hematocrit 40.4 % (37.0-47.0); Hemoglobin 13.4 g/dL (12.0-15.0); Immature Granulocyte Percent A 0.6 % (0-0.5); Lymphocytes Absolute Auto 1.93 K/mm3 (0.9-3.2); Lymphocytes Percent Auto 11.4 % (18.3-44.2); Mean Corpuscular HGB Conc 33.2 g/dl (32-36); Mean Corpuscular Hemoglobin 32.5 pg (26-34); Mean Corpuscular Volume 98.1 fl (80-100); Mean Platelet Volume 9.5 fl (7.4-10.4); Monocytes Percent Auto 11.7 % (2.6-8.5); Neutrophils Absolute Auto 12.8 K/mm3 (1.3-6.7); Neutrophils Percent Auto 76.1 % (45.5-73.1); Platelet Count Result 239 k/mm3 (150-375); Red Blood Count 4.12 M/mm3 (4.2-5.4); Red Cell Distribution Width 12.8 % (11.5-14.5); White Blood Count 16.9 K/mm3 (4.5-10.0)
[2023-01-24 07:06] LABS: Alanine Aminotransferase 14 U/L (6-35); Albumin Level 3.3 g/dL (3.5-5.1); Alkaline Phosphatase 42 U/L (38-126); Anion Gap 3 mmol/L (8-16); Aspartate Amino Transferase 19 U/L (14-36); Bilirubin,Total 0.8 mg/dL (0.2-1.3); Blood Urea Nitrogen 9 mg/dL (7-17); Calcium 8.5 mg/dL (8.4-10.2); Carbon Dioxide 31 mmol/L (22-30); Chloride 108 mmol/L (98-107); Estimated CRCL calculation 68 ml/min; Estimated Glomerular Filt Rate > 60; Glucose 146 mg/dL (65-110); Magnesium 1.9 mg/dL (1.6-2.3); Phosphorus 4.6 mg/dL (2.5-4.5); Potassium 3.8 mmol/L (3.4-5.0); Sodium 142 mmol/L (137-145)
[2023-01-24] MEDS: PANTOPRAZOLE SODIUM IV 40 MG VIAL IV PUSH (08:43)
[2023-01-24] MEDS: ENOXAPARIN 40 MG/0.4 ML SYRINGE SUB-Q (08:43)
[2023-01-24 09:41] LABS: Free T4 Free Thyroxine Reflex 1.35 ng/dL (0.78-2.19)
--- NOTE | 2023-01-24 10:15 | WPDPN ---
Progress Note: A&P Assessment and Plan (1) Small bowel obstruction: Code(s): K56.609 - Unspecified intestinal obstruction, unspecified as to partial versus complete obstruction Status: Acute Assessment and Plan: Resolved. Postop day 1. After exploratory laparotomy with abdominal he has a lysis. All the small bowel was viable. She will have a postoperative ileus so we will continue supportive care. Keep an NG tube for now and bowel rest except for ice chips. We will go ahead start some Reglan to promote bowel motility. Get Occupational therapy and Physical therapy involved for mobilization. DVT prophylaxis is with Lovenox and GI prophylaxis with Protonix[place] [address] [place] most likely due to reaction from surgery. We will go ahead and stop the Zosyn for IV antibiotics. Subjective Date/time seen: 01/24/23 10:15 Interval history: Patient doing better today. No nausea. Only some mild incisional pain after exploratory laparotomy and abdominal he has the lysis yesterday for high-grade small bowel obstruction. She wants ice chips. Pain is well controlled with p.r.n. dosing of Dilaudid. No fever. Blood cell count is elevated at 16,000 thousand which is likely reactive. Review of Systems Review of Systems: The remainder of the review of systems to include constitutional, HEENT, cardiovascular, respiratory, GI, , integumentary, musculoskeletal, endocrine, immunologic, hematologic, psychiatric, and neurologic are all negative except for which is mentioned above in the HPI. Exam Const: General: comfortable and no acute distress Neck: Neck: supple and no JVD Resp: Effort & Inspection: normal respiratory effort Auscultation: clear to auscultation bilaterally Cardio: Rate: regular rate Rhythm: regular rhythm GI: Other: Abdomen is soft and and mildly distended. Expected tenderness around the midline incision but the dressing is dry and there is no bleeding. Psych: Mental Status: mental status grossly normal Affect: normal affect Objective Data Vital Signs Vital Signs: Vital Signs - 24 hr 01/23/23 11:00 01/23/23 14:00 01/23/23 16:22 Temperature 36.2 C L 37.4 C Pulse Rate 75 74 Respiratory Rate 22 H 16 Blood Pressure 139/78 139/73 Pulse Oximetry 96 96 Oxygen Delivery Room Air Room Air Oxygen Flow Rate 01/23/23 18:37 01/23/23 18:50 01/23/23 19:05 Temperature 36.6 C Pulse Rate 80 89 89 Respiratory Rate 28 H 24 H 26 H Blood Pressure 158/81 H 161/122 H 172/80 H Pulse Oximetry 100 99 99 Oxygen Delivery Simple Face Mask Simple Face Mask Simple Face Mask Oxygen Flow Rate 6 8 8 01/23/23 19:20 01/23/23 19:35 01/23/23 19:50 Temperature Pulse Rate 86 82 77 Respiratory Rate 25 H 19 20 Blood Pressure 164/84 H 140/85 137/80 Pulse Oximetry 90 98 96 Oxygen Delivery Room Air Nasal Cannula Nasal Cannula Oxygen Flow Rate 2 2 01/23/23 21:15 01/23/23 20:10 01/23/23 20:25 Temperature 36.1 C L 36.1 C L Pulse Rate 88 92 Respiratory Rate 16 16 Blood Pressure 125/60 120/57 L Pulse Oximetry 97 98 98 Oxygen Delivery Nasal Cannula Oxygen Flow Rate 2 01/23/23 21:55 01/24/23 00:00 01/23/23 20:00 Temperature 36.2 C L 36.6 C Pulse Rate 98 105 H 105 H Respiratory Rate 16 18 18 Blood Pressure 115/59 L 115/49 L Pulse Oximetry 100 95 95 Oxygen Delivery Nasal Cannula Oxygen Flow Rate 2 01/24/23 05:16 Temperature 36.1 C L Pulse Rate 75 Respiratory Rate 16 Blood Pressure 103/73 Pulse Oximetry 100 Oxygen Delivery Oxygen Flow Rate Intake/Output Intake/Output: Intake & Output 01/21/23 01/22/23 01/23/23 01/24/23 23:59 23:59 23:59 23:59 Intake Total 50 2450 1100 Output Total 145 250 Balance 50 2305 850 Meds/Results Medications: Active Medications Generic Name Dose Route Start Last Admin Trade Name Freq PRN Reason Stop Dose Admin Al Hydrox/Mg Hydrox/Simethicone 30 ml 01/23/23 22:00 01/24/23 08:44 Mag
[2023-01-24] MEDS: METOCLOPRAMIDE HCL INJ 10 MG/2 ML VIAL IV PUSH ×3 (11:25→23:03)
--- NOTE | 2023-01-24 11:30 | WPDANESPN ---
Anes - Prog Note Post-Op Date/Time: 01/24/23 11:30 Cardiovascular status: normal Respiratory status: normal Airway patency: baseline Mental status: baseline Post-Op hydration status: normal Vital Signs: Last Vital Signs Temp 36.1 C L 01/24/23 10:00 Pulse 82 01/24/23 10:00 Resp 20 01/24/23 10:00 BP 108/60 01/24/23 10:00 Pulse Ox 96 01/24/23 10:45 O2 Del Method Nasal Cannula 01/24/23 10:45 O2 Flow Rate 2 01/24/23 10:45 Pain Score (VAS): 01/03 I/O: Intake & Output 01/23/23 01/24/23 01/24/23 23:59 07:59 15:59 Intake Total 1300 1100 Output Total 145 250 Balance 1155 850 Laboratory Tests 01/24/23 06:30 01/24/23 06:30 01/23/23 01/23/23 01/23/23 11:11 15:26 16:45 WBC RBC Hgb Hct MCV MCH MCHC RDW Plt Count MPV Immature Gran % (Auto) Neut % (Auto) Lymph % (Auto) [place] % (Auto) Eos % (Auto) Baso % (Auto) Lymph # (Auto) [place] # (Auto) Eos # (Auto) Baso # (Auto) Abs Immat Gran (auto) Absolute Neuts (auto) Absolute Nucleated RBC Nucleated RBC % Sodium Potassium Chloride Carbon Dioxide Anion Gap BUN Creatinine Estim Creat Clear Calc Estimated GFR Glucose POC Capillary Glucose 188 H 161 H Calcium Phosphorus Magnesium Total Bilirubin AST ALT Alkaline Phosphatase Total Protein Albumin TSH (Reflex) Free T4 Total T3 Blood Type AB Positive Antibody Screen Negative 01/23/23 01/24/23 01/24/23 19:37 00:14 05:34 WBC RBC Hgb Hct MCV MCH MCHC RDW Plt Count MPV Immature Gran % (Auto) Neut % (Auto) Lymph % (Auto) [place] % (Auto) Eos % (Auto) Baso % (Auto) Lymph # (Auto) [place] # (Auto) Eos # (Auto) Baso # (Auto) Abs Immat Gran (auto) Absolute Neuts (auto) Absolute Nucleated RBC Nucleated RBC % Sodium Potassium Chloride Carbon Dioxide Anion Gap BUN Creatinine Estim Creat Clear Calc Estimated GFR Glucose POC Capillary Glucose 181 H 166 H 149 H Calcium Phosphorus Magnesium Total Bilirubin AST ALT Alkaline Phosphatase Total Protein Albumin TSH (Reflex) Free T4 Total T3 Blood Type Antibody Screen 01/24/23 01/24/23 01/24/23 06:30 06:30 06:30 WBC 16.9 H RBC 4.12 L Hgb 13.4 Hct 40.4 MCV 98.1 MCH 32.5 MCHC 33.2 RDW 12.8 Plt Count 239 MPV 9.5 Immature Gran % (Auto) 0.6 H Neut % (Auto) 76.1 H Lymph % (Auto) 11.4 L [place] % (Auto) 11.7 H Eos % (Auto) 0.1 Baso % (Auto) 0.1 L Lymph # (Auto) 1.93 [place] # (Auto) 2.0 H Eos # (Auto) 0.0 Baso # (Auto) 0.0 Abs Immat Gran (auto) 0.10 H Absolute Neuts (auto) 12.8 H Absolute Nucleated RBC 0.0 Nucleated RBC % 0.0 Sodium 142 Potassium 3.8 Chloride 108 H Carbon Dioxide 31 H Anion Gap 3 L BUN 9 Creatinine 0.60 L Estim Creat Clear Calc 68 Estimated GFR > 60 Glucose 146 H POC Capillary Glucose Calcium 8.5 Phosphorus 4.6 H Magnesium 1.9 Total Bilirubin 0.8 AST 19 ALT 14 Alkaline Phosphatase 42 Total Protein 6.0 L Albumin 3.3 L TSH (Reflex) 0.230 L Free T4 Total T3 Blood Type Antibody Screen 01/24/23 01/24/23 06:30 06:30 WBC RBC Hgb Hct MCV MCH MCHC RDW Plt Count MPV Immature Gran % (Auto) Neut % (Auto) Lymph % (Auto) [place] % (Auto) Eos % (Auto) Baso % (Auto) Lymph # (Auto) [place] # (Auto) Eos # (Auto) Baso # (Auto) Abs Immat Gran (auto) Absolute Neuts (auto) Absolute Nucleated RBC Nucleated RBC % Sodium Potassium Chloride Carbon Dioxide Anion Gap BUN Creatinine Estim Creat Clear Calc Estimated GFR Glucose POC Capillary Glucose Calcium Phosphorus Ma
--- NOTE | 2023-01-24 11:57 | PM.IMPN ---
Progress Note: A&P Assessment and Plan (1) Small bowel obstruction: Code(s): K56.609 - Unspecified intestinal obstruction, unspecified as to partial versus complete obstruction Status: Acute Assessment and Plan: Patient presents with abdominal pain and found to have small-bowel obstruction on imaging. GenSurg was consulted. Small-bowel series shows high-grade small-bowel obstruction. She underwent exploratory laparotomy with abdominal adhesive lysis on 01/23/2023. She tolerated the procedure well. Pain is well controlled. White count is elevated but probably reactive to the surgery. Increase activity as she tolerates. Continue routine postoperative care. (2) Type 2 diabetes mellitus: Code(s): E11.9 - Type 2 diabetes mellitus without complications Status: Acute Assessment and Plan: The patient's blood glucose was reviewed on 01/24 Glucose remains reasonably well controlled. Continue AccuCheks covering with sliding scale. Hypoglycemia protocol available as needed. Continue to monitor (3) Antiplatelet or antithrombotic long-term use: Code(s): Z79.02 - halfway (current) use of antithrombotics/antiplatelets Status: Acute Assessment and Plan: Patient reported history of multiple TIAs over 10 years ago and subsequently was started on Plavix. Plavix currently on hold. Resume when able. (4) Chronic obstructive pulmonary disease: Code(s): J44.9 - Chronic obstructive pulmonary disease, unspecified Status: Acute Assessment and Plan: No wheezing noted. Continue to follow clinically. (5) Tobacco abuse: Code(s): Z72.0 - Tobacco use Status: Acute Assessment and Plan: Smoking cessation was encouraged and was discussed. (6) Renal calculus: Code(s): N20.0 - Calculus of kidney Status: Acute Assessment and Plan: Nonobstructing renal calculi noted bilaterally, not an acute issue. Subjective Date/time seen: 01/24/23 11:57 Interval history: 62yo female with diabetes and COPD here for abdominal pain found to have SBO. Abdominal pain is tolerable with current regiment. No chest pain or shortness of breath. Does not wear oxygen home. She does not have sleep apnea. No flatus or bowel movements. She does have dyspnea on exertion. Exam Narrative: AF 97.0 108/60 82 20 96%ra Gen - NARD HEENT - NGT secured with small amount of dark bilious fluid in canister Chest - Clear, distant BS, nml RR CV - RRR S1/S2 Abd -soft. Hypoactive bowel sounds. diffusely tender. Midline incision dressing with old staining noted - Aguilar secured draining clear yellow urine Ext - No pedal edema Psych - Nml mood and affect Skin - Warm and dry Objective Data Vital Signs Vital Signs: Vital Signs - 24 hr 01/23/23 14:00 01/23/23 16:22 01/23/23 18:37 Temperature 97.2 F L 99.4 F 97.9 F Pulse Rate 75 74 80 Respiratory Rate 22 H 16 28 H Blood Pressure 139/78 139/73 158/81 H Pulse Oximetry 96 96 100 Oxygen Delivery Room Air Simple Face Mask Oxygen Flow Rate 6 01/23/23 18:50 01/23/23 19:05 01/23/23 19:20 Temperature Pulse Rate 89 89 86 Respiratory Rate 24 H 26 H 25 H Blood Pressure 161/122 H 172/80 H 164/84 H Pulse Oximetry 99 99 90 Oxygen Delivery Simple Face Mask Simple Face Mask Room Air Oxygen Flow Rate 8 8 01/23/23 19:35 01/23/23 19:50 01/23/23 21:15 Temperature Pulse Rate 82 77 Respiratory Rate 19 20 Blood Pressure 140/85 137/80 Pulse Oximetry 98 96 97 Oxygen Delivery Nasal Cannula Nasal Cannula Nasal Cannula Oxygen Flow Rate 2 2 2 01/23/23 20:10 01/23/23 20:25 01/23/23 21:55 Temperature 97 F L 97 F L 97.1 F L Pulse Rate 88 92 98 Respiratory Rate 16 16 16 Blood Pressure 125/60 120/57 L 115/59 L Pulse Oximetry 98 98 100 Oxygen Delivery Oxygen Flow Rate 01/24/23 00:00 01/23/23 20:00 01/24/23 05:16 Temperature 97.8 F 97.0 F L Pulse Rate 105 H 105 H 75 Re
[2023-01-24 12:06] LABS: Glucose Point of Care 161 mg/dl (65-105)
[2023-01-24] MEDS: MAG HYDROX/AL HYDROX/SIMETH 30 ML UDC PO ×2 (15:36→23:03)
[2023-01-24 15:51] LABS: Total Triiodothyronine (T3) 0.78 NG/ML (0.97-1.69)
[2023-01-24 18:37] LABS: Glucose Point of Care 122 mg/dl (65-105)
[2023-01-24 23:19] LABS: Glucose Point of Care 109 mg/dl (65-105)
[2023-01-25] VITALS (8 sets, daily range): BP systolic 96–128; BP diastolic 50–70; PULSE 84–88; RESP 16–20; TEMP 35.9–36.6; O2SAT 90–97
[2023-01-25] MEDS: MAG HYDROX/AL HYDROX/SIMETH 30 ML UDC PO ×2 (05:49→14:48)
[2023-01-25] MEDS: METOCLOPRAMIDE HCL INJ 10 MG/2 ML VIAL IV PUSH ×3 (05:49→17:58)
[2023-01-25 06:19] LABS: Glucose Point of Care 118 mg/dl (65-105)
[2023-01-25 07:11] LABS: Basophils Percent Auto 0.1 % (0.2-1.2); Eosinophils Absolute Auto 0.2 K/mm3 (0-0.3); Eosinophils Percent Auto 1.1 % (0-4.4); Hematocrit 35.4 % (37.0-47.0); Hemoglobin 11.5 g/dL (12.0-15.0); Immature Granulocyte Absolute 0.07 K/mm3 (0.00-0.031); Immature Granulocyte Percent A 0.5 % (0-0.5); Lymphocytes Absolute Auto 2.01 K/mm3 (0.9-3.2); Mean Corpuscular HGB Conc 32.5 g/dl (32-36); Mean Corpuscular Hemoglobin 32.6 pg (26-34); Mean Corpuscular Volume 100.3 fl (80-100); Mean Platelet Volume 9.6 fl (7.4-10.4); Monocytes Absolute Auto 1.2 K/mm3 (0.1-0.6); Monocytes Percent Auto 8.2 % (2.6-8.5); Neutrophils Absolute Auto 10.9 K/mm3 (1.3-6.7); Neutrophils Percent Auto 76.1 % (45.5-73.1); Platelet Count Result 214 k/mm3 (150-375); Red Blood Count 3.53 M/mm3 (4.2-5.4); Red Cell Distribution Width 12.8 % (11.5-14.5); White Blood Count 14.4 K/mm3 (4.5-10.0)
[2023-01-25 07:27] LABS: Anion Gap 7 mmol/L (8-16); Blood Urea Nitrogen 10 mg/dL (7-17); Calcium 8.1 mg/dL (8.4-10.2); Carbon Dioxide 26 mmol/L (22-30); Chloride 108 mmol/L (98-107); Estimated CRCL calculation 99 ml/min; Estimated Glomerular Filt Rate > 60; Glucose 111 mg/dL (65-110); Potassium 3.3 mmol/L (3.4-5.0); Sodium 141 mmol/L (137-145)
[2023-01-25 07:42] LABS: Glucose Point of Care 101 mg/dl (65-105)
[2023-01-25] MEDS: ENOXAPARIN 40 MG/0.4 ML SYRINGE SUB-Q (08:55)
[2023-01-25] MEDS: SODIUM CHLORIDE 0.9% IV 1,000 ML 125 ML IV CONT ×2 (08:55→17:58)
[2023-01-25] MEDS: PANTOPRAZOLE SODIUM IV 40 MG VIAL IV PUSH (08:56)
[2023-01-25 11:47] LABS: Glucose Point of Care 113 mg/dl (65-105)
--- NOTE | 2023-01-25 12:01 | PM.PNGS ---
Progress Note: A&P Assessment and Plan (1) Small bowel obstruction: Code(s): K56.609 - Unspecified intestinal obstruction, unspecified as to partial versus complete obstruction Status: Acute Assessment and Plan: Will try to clamp NG today. Await return of bowel function Ambulate in halls Continue Reglan Subjective Subjective Date/Time Seen: 01/25/23 12:01 Interval history: No flatus or BM yet. Not much coming out of NG. Pain controlled. Exam GI: Inspection: non-distended and incision (intact with nallely) GI Palp: Yes Soft to palpation and Yes Tenderness to palpation present (GI) (incisional) Auscultation: normal bowel sounds Objective Data Vital Signs Vital Signs: Vital Signs - 24 hr 01/24/23 16:00 01/24/23 20:00 01/25/23 00:00 Temperature 36.2 C L 36.3 C L 36.3 C L Pulse Rate 82 92 88 Respiratory Rate 20 18 18 Blood Pressure 122/71 110/44 L 113/50 L Pulse Oximetry 98 90 92 Oxygen Delivery 01/25/23 04:00 01/25/23 08:00 01/25/23 09:16 Temperature 36.2 C L 35.9 C L Pulse Rate 85 85 Respiratory Rate 18 16 Blood Pressure 106/52 L 117/63 Pulse Oximetry 90 96 91 Oxygen Delivery Room Air Intake/Output Intake/Output: Intake & Output 01/22/23 01/23/23 01/24/23 01/25/23 23:59 23:59 23:59 23:59 Intake Total 50 2450 3300 1200 Output Total 145 250 200 Balance 50 2305 3050 1000 Meds/Results Medications: Active Medications Generic Name Dose Route Start Last Admin Trade Name Freq PRN Reason Stop Dose Admin Al Hydrox/Mg Hydrox/Simethicone 30 ml 01/23/23 22:00 01/25/23 05:49 Mag Hydrox/Al Hydrox/Simeth 30 Ml Udc PO 30 ml Q8H SUSHMA Administration Dextrose 12.5 gm 01/22/23 23:15 Dextrose 50% 25 Gm/50 Ml Syringe IV PUSH PRN PRN Hypoglycemia Protocol Enoxaparin Sodium 40 mg 01/24/23 09:00 01/25/23 08:55 Enoxaparin 40 Mg/0.4 Ml Syringe SUB-Q 40 mg DAILY SUSHMA Administration Fentanyl Citrate 25 mcg 01/23/23 16:02 01/23/23 19:40 Fentanyl Citrate Inj (*Crx) 100 Mcg/2 Ml Vial IV PUSH 25 mcg Q2M PRN Administration Pain Glucagon 1 mg 01/22/23 23:15 Glucagon For Inj 1 Mg Vial IM PRN PRN Hypoglycemia Protocol Glucose 15 gm 01/22/23 23:15 Glucose Oral Gel 15 Gm Of Glucse In 37.5 Gm Tube PO PRN PRN Hypoglycemia Protocol Hydromorphone HCl 1 mg 01/23/23 20:02 01/24/23 15:37 Hydromorphone Hcl Inj (*Crx) 1 Mg/Ml Syr IV PUSH 1 mg Q3H PRN Administration Pain Rated 7-10 Sodium Chloride 1,000 mls @ 125 mls/hr 01/22/23 16:05 01/25/23 08:55 Normal Saline Iv IV CONT 125 mls/hr .Q8H SUSHMA Administration Dextrose 1,000 mls @ 100 mls/hr 01/22/23 23:15 Dextrose 5% 1,000 Ml IVPB PRN PRN Hypoglycemia Protocol Insulin Aspart 2 - 5 units 01/23/23 00:00 01/25/23 06:19 Insulin Aspart (*Bkc) 100 Units/Ml SUB-Q Not Given Q6HR SUSHMA Protocol Metoclopramide HCl 10 mg 01/24/23 12:00 01/25/23 05:49 Metoclopramide Hcl Inj 10 Mg/2 Ml Vial IV PUSH 10 mg Q6HR SUSHMA Administration Ondansetron HCl 4 mg 01/22/23 16:01 01/23/23 10:47 Ondansetron Inj 4 Mg/2 Ml Vial IV PUSH 4 mg Q4H PRN Administration Nausea Ondansetron HCl 4 mg 01/23/23 16:02 Ondansetron Inj 4 Mg/2 Ml Vial IV PUSH ONCE PRN Nausea Pantoprazole Sodium 40 mg 01/22/23 16:40 01/25/23 08:56 Pantoprazole Sodium Iv 40 Mg Vial IV PUSH 40 mg QAM SUSHMA Administration Radiology Results: ITS Impressions Abdomen/Pelvis CT 01/22/23 14:11 IMPRESSION: Partial small bowel obstruction suggested transition point in the right lower quadrant, with some edema of the mesentery in this region Minimal ascites 3.5 mm lower pole left renal nonobstructing calculus and suggestion of subtle pinpoint nonobstructing lower pole right renal calculus Status post cholecystectomy Small sliding hiatal hernia Abdomen X-Ray 01/23/23 08:37 Impression:
[2023-01-25 18:22] LABS: Glucose Point of Care 93 mg/dl (65-105)
--- NOTE | 2023-01-25 19:21 | PM.IMPN ---
Progress Note: A&P Assessment and Plan (1) Small bowel obstruction: Code(s): K56.609 - Unspecified intestinal obstruction, unspecified as to partial versus complete obstruction Status: Acute Assessment and Plan: Patient presents with abdominal pain and found to have small-bowel obstruction on imaging. GenSurg was consulted. Small-bowel series shows high-grade small-bowel obstruction. She underwent exploratory laparotomy with abdominal adhesive lysis on 01/23/2023. She tolerated the procedure well. Pain is well controlled. White count is elevated but probably reactive to the surgery. Increase activity as she tolerates. Continue routine postoperative care. (2) Type 2 diabetes mellitus: Code(s): E11.9 - Type 2 diabetes mellitus without complications Status: Acute Assessment and Plan: The patient's blood glucose was reviewed on 01/25 Glucose remains reasonably well controlled. Continue AccuCheks covering with sliding scale. Hypoglycemia protocol available as needed. Continue to monitor (3) Antiplatelet or antithrombotic long-term use: Code(s): Z79.02 - [facility] (current) use of antithrombotics/antiplatelets Status: Acute Assessment and Plan: Patient reported history of multiple TIAs over 10 years ago and subsequently was started on Plavix. Plavix currently on hold. Resume when able. (4) Chronic obstructive pulmonary disease: Code(s): J44.9 - Chronic obstructive pulmonary disease, unspecified Status: Acute Assessment and Plan: No wheezing noted. Continue to follow clinically. (5) Tobacco abuse: Code(s): Z72.0 - Tobacco use Status: Acute Assessment and Plan: Smoking cessation was encouraged and was discussed. (6) Renal calculus: Code(s): N20.0 - Calculus of kidney Status: Acute Assessment and Plan: Nonobstructing renal calculi noted bilaterally, not an acute issue. Plan DVT prophylaxis with SCDs GI prophylaxis with PPI Code status full code Subjective Date/time seen: 01/25/23 19:21 Interval history: 62yo female with diabetes and COPD here for abdominal pain found to have SBO. Still no flatus or bowel movements, NG being clamped today. No overnight events noted. No chest pain or shortness of breath. No nausea, vomiting or diarrhea. No fevers or chills. Review of Systems Review of Systems: 12 point review of systems was assessed and was negative except as noted in the HPI Exam Narrative: General: No acute distress, alert and oriented per baseline HEENT: Atraumatic, normocephalic, mucous membranes moist CV: Regular rate and rhythm, S1, S2 Lungs: Clear to auscultation bilaterally, no rales or crackles noted, no wheezes, good air entry Abdomen: Soft, nontender, nondistended, bilious drainage noted in NG canister Extremities: Normal to inspection Skin: No rashes noted, no lesions or wounds seen Psych: Euthymic, normal affect Objective Data Vital Signs Vital Signs: Vital Signs - 24 hr 01/24/23 20:00 01/25/23 00:00 01/25/23 04:00 Temperature 97.4 F L 97.4 F L 97.1 F L Pulse Rate 92 88 85 Respiratory Rate 18 18 18 Blood Pressure 110/44 L 113/50 L 106/52 L Pulse Oximetry 90 92 90 Oxygen Delivery 01/25/23 08:00 01/25/23 09:16 01/25/23 08:00 Temperature 96.7 F L Pulse Rate 85 Respiratory Rate 16 Blood Pressure 117/63 Pulse Oximetry 96 91 Oxygen Delivery Room Air Room Air 01/25/23 12:00 01/25/23 12:50 01/25/23 16:00 Temperature 96.8 F L 97 F L Pulse Rate 84 86 Respiratory Rate 18 18 Blood Pressure 128/63 125/61 Pulse Oximetry 96 97 Oxygen Delivery Room Air Intake/Output Intake/Output: Intake & Output 01/22/23 01/23/23 01/24/23 01/25/23 23:59 23:59 23:59 23:59 Intake Total 50 2450 3300 2300 Output Total 145 250 200 Balance 50 2305 3050 2100 Meds/Results Medications: Active Medication
[2023-01-25 21:41] LABS: Glucose Point of Care 88 mg/dl (65-105)
[2023-01-25 23:51] LABS: Glucose Point of Care 71 mg/dl (65-105)
[2023-01-26] MEDS: DEXTROSE 50% 25 GM/50 ML SYRINGE IV PUSH (00:02)
[2023-01-26] MEDS: METOCLOPRAMIDE HCL INJ 10 MG/2 ML VIAL IV PUSH ×4 (00:04→18:08)
[2023-01-26] MEDS: SODIUM CHLORIDE 0.9% IV 1,000 ML 125 ML IV CONT (00:06)
--- NOTE | 2023-01-26 00:59 | PC.NURSE ---
Dr. Wang aware of low K, and Lowing Blood glucose. Orders received, patient condition stable and unchanged. No flatus, nausea or any BMs at this time. NG remains clamped and patient tolerating well. Will continue to monitor patient's status well.
[2023-01-26] MEDS: KCL 20 MEQ/D5/0.9% SOD CHL 1,000 ML 100 ML IV CONT ×2 (01:11→04:37)
[2023-01-26 01:23] LABS: Glucose Point of Care 192 mg/dl (65-105)
[2023-01-26 04:00] VITALS: BP 119/80; PULSE 76; RESP 18; TEMP 36.2; O2SAT 94
[2023-01-26 05:03] LABS: Glucose Point of Care 180 mg/dl (65-105)
[2023-01-26 06:42] LABS: Hematocrit 32.7 % (37.0-47.0); Hemoglobin 10.5 g/dL (12.0-15.0); Mean Corpuscular HGB Conc 32.1 g/dl (32-36); Mean Corpuscular Hemoglobin 32.5 pg (26-34); Mean Corpuscular Volume 101.2 fl (80-100); Mean Platelet Volume 9.4 fl (7.4-10.4); Platelet Count Result 203 k/mm3 (150-375); Red Blood Count 3.23 M/mm3 (4.2-5.4); Red Cell Distribution Width 12.7 % (11.5-14.5); White Blood Count 10.2 K/mm3 (4.5-10.0)
[2023-01-26 06:55] LABS: Anion Gap 5 mmol/L (8-16); Blood Urea Nitrogen 7 mg/dL (7-17); Calcium 7.9 mg/dL (8.4-10.2); Carbon Dioxide 22 mmol/L (22-30); Chloride 112 mmol/L (98-107); Estimated CRCL calculation 130 ml/min; Estimated Glomerular Filt Rate > 60; Glucose 161 mg/dL (65-110); Potassium 3.1 mmol/L (3.4-5.0); Sodium 139 mmol/L (137-145)
[2023-01-26 08:00] VITALS: BP 121/63; PULSE 79; RESP 16; TEMP 36.1; O2SAT 94
[2023-01-26] MEDS: PANTOPRAZOLE SODIUM IV 40 MG VIAL IV PUSH (09:02)
[2023-01-26] MEDS: ENOXAPARIN 40 MG/0.4 ML SYRINGE SUB-Q (09:02)
--- NOTE | 2023-01-26 10:57 | PM.PNGS ---
Progress Note: A&P Assessment and Plan (1) Small bowel obstruction: Code(s): K56.609 - Unspecified intestinal obstruction, unspecified as to partial versus complete obstruction Status: Acute Assessment and Plan: Remove NG today Dulcolax suppository Start clears Increase activity, await return of bowel function Subjective Subjective Date/Time Seen: 01/26/23 10:57 Interval history: No flatus or BM yet. NG has been clamped since yesterday. No nausea or bloating. Ambulating well. Exam GI: Inspection: non-distended and incision (intact with nallely) GI Palp: Yes Soft to palpation, Yes Tenderness to palpation present (GI) (incisional) and No Guarding due to palpation present (GI) Auscultation: normal bowel sounds Objective Data Vital Signs Vital Signs: Vital Signs - 24 hr 01/25/23 12:00 01/25/23 12:50 01/25/23 16:00 Temperature 36.0 C L 36.1 C L Pulse Rate 84 86 Respiratory Rate 18 18 Blood Pressure 128/63 125/61 Pulse Oximetry 96 97 Oxygen Delivery Room Air 01/25/23 20:00 01/25/23 23:52 01/26/23 04:00 Temperature 36.4 C L 36.6 C 36.2 C L Pulse Rate 86 84 76 Respiratory Rate 18 20 18 Blood Pressure 96/70 L 124/57 L 119/80 Pulse Oximetry 96 91 94 Oxygen Delivery 01/26/23 08:00 Temperature 36.1 C L Pulse Rate 79 Respiratory Rate 16 Blood Pressure 121/63 Pulse Oximetry 94 Oxygen Delivery Intake/Output Intake/Output: Intake & Output 01/23/23 01/24/23 01/25/23 01/26/23 23:59 23:59 23:59 23:59 Intake Total 2450 3300 2400 2050 Output Total 145 250 200 Balance 2305 3050 2200 2050 Meds/Results Medications: Active Medications Generic Name Dose Route Start Last Admin Trade Name Freq PRN Reason Stop Dose Admin Al Hydrox/Mg Hydrox/Simethicone 30 ml 01/23/23 22:00 01/26/23 04:39 Mag Hydrox/Al Hydrox/Simeth 30 Ml Udc PO Not Given Q8H SUSHMA Bisacodyl 10 mg 01/26/23 10:55 Bisacodyl 10 Mg Suppository RECTAL 01/26/23 10:56 ONCE ONE Dextrose 12.5 gm 01/22/23 23:15 01/26/23 00:02 Dextrose 50% 25 Gm/50 Ml Syringe IV PUSH 12.5 gm PRN PRN Administration Hypoglycemia Protocol Enoxaparin Sodium 40 mg 01/24/23 09:00 01/26/23 09:02 Enoxaparin 40 Mg/0.4 Ml Syringe SUB-Q 40 mg DAILY SUSHMA Administration Fentanyl Citrate 25 mcg 01/23/23 16:02 01/23/23 19:40 Fentanyl Citrate Inj (*Crx) 100 Mcg/2 Ml Vial IV PUSH 25 mcg Q2M PRN Administration Pain Glucagon 1 mg 01/22/23 23:15 Glucagon For Inj 1 Mg Vial IM PRN PRN Hypoglycemia Protocol Glucose 15 gm 01/22/23 23:15 Glucose Oral Gel 15 Gm Of Glucse In 37.5 Gm Tube PO PRN PRN Hypoglycemia Protocol Hydromorphone HCl 1 mg 01/23/23 20:02 01/24/23 15:37 Hydromorphone Hcl Inj (*Crx) 1 Mg/Ml Syr IV PUSH 1 mg Q3H PRN Administration Pain Rated 7-10 Dextrose 1,000 mls @ 100 mls/hr 01/22/23 23:15 Dextrose 5% 1,000 Ml IVPB PRN PRN Hypoglycemia Protocol Acetaminophen 1,000 mg in 100 mls @ 400 mls/hr 01/25/23 12:00 01/26/23 04:39 Ofirmev 1,000 Mg Ivpb IVPB 01/26/23 11:59 Not Given Q6HR SUSHMA Potassium Chloride/Dextrose/Sod Cl 1,000 mls @ 100 mls/hr 01/26/23 01:30 01/26/23 04:37 Kcl 20 Meq/D5/0.9% Sod Chl IV CONT 100 mls/hr .Q10H SUSHMA Administration Insulin Aspart 2 - 5 units 01/23/23 00:00 01/26/23 04:43 Insulin Aspart (*Bkc) 100 Units/Ml SUB-Q Not Given Q6HR SUSHMA Protocol Metoclopramide HCl 10 mg 01/24/23 12:00 01/26/23 04:42 Metoclopramide Hcl Inj 10 Mg/2 Ml Vial IV PUSH 10 mg Q6HR SUSHMA Administration Ondansetron HCl 4 mg 01/22/23 16:01 01/23/23 10:47 Ondansetron Inj 4 Mg/2 Ml Vial IV PUSH 4 mg Q4H PRN Administration Nausea Ondansetron HCl 4 mg 01/23/23 16:02 Ondansetron Inj 4 Mg/2 Ml Vial IV PUSH ONCE PRN Nausea Pantoprazole Sodium 40 mg 01/22/23 16:40 01/26/23 09:02 Pantoprazole Sodium Iv 40 Mg Vial I
[2023-01-26] MEDS: BISACODYL 10 MG SUPPOSITORY RECTAL (11:37)
[2023-01-26] MEDS: POTASSIUM CHLORIDE INJ 40 MEQ in SODIUM CHLORIDE 0.9% IV 500 ML 130 MEQ IVPB (11:37)
[2023-01-26 12:00] VITALS: BP 122/65; PULSE 75; RESP 16; TEMP 36.5; O2SAT 95
--- NOTE | 2023-01-26 13:00 | PM.IMPN ---
Progress Note: A&P Assessment and Plan (1) Small bowel obstruction: Code(s): K56.609 - Unspecified intestinal obstruction, unspecified as to partial versus complete obstruction Status: Acute Assessment and Plan: Patient presents with abdominal pain and found to have small-bowel obstruction on imaging. GenSurg was consulted. Small-bowel series shows high-grade small-bowel obstruction. She underwent exploratory laparotomy with abdominal adhesive lysis on 01/23/2023. She tolerated the procedure well. Pain is well controlled. White count is elevated but probably reactive to the surgery. Increase activity as she tolerates. Continue routine postoperative care. NGT removed 01/26 (2) Type 2 diabetes mellitus: Code(s): E11.9 - Type 2 diabetes mellitus without complications Status: Acute Assessment and Plan: The patient's blood glucose was reviewed on 01/26 Glucose remains reasonably well controlled. Continue AccuCheks covering with sliding scale. Hypoglycemia protocol available as needed. Continue to monitor (3) Antiplatelet or antithrombotic long-term use: Code(s): Z79.02 - [facility]ial (current) use of antithrombotics/antiplatelets Status: Acute Assessment and Plan: Patient reported history of multiple TIAs over 10 years ago and subsequently was started on Plavix. Plavix currently on hold. Resume when able. (4) Chronic obstructive pulmonary disease: Code(s): J44.9 - Chronic obstructive pulmonary disease, unspecified Status: Acute Assessment and Plan: No wheezing noted. Continue to follow clinically. (5) Tobacco abuse: Code(s): Z72.0 - Tobacco use Status: Acute Assessment and Plan: Smoking cessation was encouraged and was discussed. (6) Renal calculus: Code(s): N20.0 - Calculus of kidney Status: Acute Assessment and Plan: Nonobstructing renal calculi noted bilaterally, not an acute issue. Plan DVT prophylaxis with SCDs GI prophylaxis with PPI Code status full code Subjective Date/time seen: 01/26/23 13:00 Interval history: 62yo female with diabetes and COPD here for abdominal pain found to have SBO. NG removed today. Patient had another bowel movement. Diet to be advanced. No overnight events. She did have some increase in abdominal distension. Review of Systems Review of Systems: 12 point review of systems was assessed and was negative except as noted in the HPI Exam Narrative: General: No acute distress, alert and oriented per baseline HEENT: Atraumatic, normocephalic, mucous membranes moist CV: Regular rate and rhythm, S1, S2 Lungs: Clear to auscultation bilaterally, no rales or crackles noted, no wheezes, good air entry Abdomen: Soft, mildly tender, significantly distended above the incisions, incisions with stable clean/dry/intact Extremities: Normal to inspection Skin: No rashes noted, no lesions or wounds seen Psych: Euthymic, normal affect Objective Data Vital Signs Vital Signs: Vital Signs - 24 hr 01/25/23 16:00 01/25/23 20:00 01/25/23 23:52 Temperature 97 F L 97.5 F L 97.8 F Pulse Rate 86 86 84 Respiratory Rate 18 18 20 Blood Pressure 125/61 96/70 L 124/57 L Pulse Oximetry 97 96 91 01/26/23 04:00 01/26/23 08:00 Temperature 97.1 F L 97 F L Pulse Rate 76 79 Respiratory Rate 18 16 Blood Pressure 119/80 121/63 Pulse Oximetry 94 94 Intake/Output Intake/Output: Intake & Output 01/23/23 01/24/23 01/25/23 01/26/23 23:59 23:59 23:59 23:59 Intake Total 2450 3300 2400 2049 Output Total 145 250 200 Balance 2305 3050 2200 2049 Meds/Results Medications: Active Medications Generic Name Dose Route Start Last Admin Trade Name Freq PRN Reason Stop Dose Admin Al Hydrox/Mg Hydrox/Simethicone 30 ml 01/23/23 22:00 01/26/23 04:39 Mag Hydrox/Al Hydrox/Simeth 30 Ml Udc PO Not Given Q8H SUSHMA Dextrose 12.5 gm
[2023-01-26 16:00] VITALS: BP 123/64; PULSE 77; RESP 18; TEMP 36.4; O2SAT 96
--- NOTE | 2023-01-26 16:11 | PC.NURSE ---
Pt encouraged to ambulate halls. Pt returned to room, passing this RN by in halls. This RN noted that pt had some distension to the upper incision. Palpated incision with no complaints of pain; feels soft as if filled with gas/air. Pt not having c/o increasing pain or nausea. No drainage noted. Called surgeon who was not concerned at this time. Noted to return call if pt c/o pain or incision having discharge. Will continue to monitor.
[2023-01-26 17:54] LABS: Glucose Point of Care 128 mg/dl (65-105)
[2023-01-26 17:58] LABS: Glucose Point of Care 133 mg/dl (65-105)
[2023-01-26 20:00] VITALS: BP 144/57; PULSE 84; RESP 16; TEMP 36.1; O2SAT 95
[2023-01-27] VITALS: BP 127/56; PULSE 80; RESP 16; TEMP 35.7; O2SAT 93
[2023-01-27 00:53] LABS: Glucose Point of Care 163 mg/dl (65-105)
[2023-01-27] MEDS: METOCLOPRAMIDE HCL INJ 10 MG/2 ML VIAL IV PUSH ×4 (00:59→23:45)
[2023-01-27 04:00] VITALS: BP 126/64; PULSE 75; RESP 20; TEMP 35.6; O2SAT 95
--- NOTE | 2023-01-27 05:29 | PC.NURSE ---
Attempted to call report to IMU. RN on phone with senior quality analyst. SBAR faxed to unit. Patient to go to stat CT scan prior to IMU. Awaiting CT to be freed up prior to transfer.
[2023-01-27 07:08] LABS: Hematocrit 33.4 % (37.0-47.0); Hemoglobin 11.3 g/dL (12.0-15.0); Mean Corpuscular HGB Conc 33.8 g/dl (32-36); Mean Corpuscular Hemoglobin 32.8 pg (26-34); Mean Corpuscular Volume 96.8 fl (80-100); Mean Platelet Volume 9.6 fl (7.4-10.4); Platelet Count Result 257 k/mm3 (150-375); Red Blood Count 3.45 M/mm3 (4.2-5.4); Red Cell Distribution Width 12.8 % (11.5-14.5); White Blood Count 7.9 K/mm3 (4.5-10.0)
[2023-01-27 08:00] VITALS: BP 142/58; PULSE 80; RESP 18; TEMP 36; O2SAT 99
[2023-01-27] MEDS: ENOXAPARIN 40 MG/0.4 ML SYRINGE SUB-Q (08:28)
[2023-01-27] MEDS: PANTOPRAZOLE SODIUM IV 40 MG VIAL IV PUSH (08:28)
[2023-01-27 09:29] LABS: Anion Gap 8 mmol/L (8-16); Blood Urea Nitrogen 11 mg/dL (7-17); Calcium 8.3 mg/dL (8.4-10.2); Carbon Dioxide 27 mmol/L (22-30); Chloride 106 mmol/L (98-107); Estimated CRCL calculation 100 ml/min; Estimated Glomerular Filt Rate > 60; Glucose 145 mg/dL (65-110); Magnesium 1.9 mg/dL (1.6-2.3); Potassium 3.2 mmol/L (3.4-5.0); Sodium 141 mmol/L (137-145)
--- NOTE | 2023-01-27 09:57 | PM.IMPN ---
Progress Note: A&P Assessment and Plan (1) Small bowel obstruction: Code(s): K56.609 - Unspecified intestinal obstruction, unspecified as to partial versus complete obstruction Status: Acute Assessment and Plan: Patient presents with abdominal pain and found to have small-bowel obstruction on imaging. GenSurg was consulted. Small-bowel series shows high-grade small-bowel obstruction. She underwent exploratory laparotomy with abdominal adhesive lysis on 01/23/23 Continue routine postoperative care. NGT removed 01/26, diet advanced, discharge planning soon (2) Type 2 diabetes mellitus: Code(s): E11.9 - Type 2 diabetes mellitus without complications Status: Acute Assessment and Plan: The patient's blood glucose was reviewed on 01/27 Glucose remains reasonably well controlled. Continue AccuCheks covering with sliding scale. Hypoglycemia protocol available as needed. Continue to monitor (3) Antiplatelet or antithrombotic long-term use: Code(s): Z79.02 - [facility] (current) use of antithrombotics/antiplatelets Status: Acute Assessment and Plan: Patient reported history of multiple TIAs over 10 years ago and subsequently was started on Plavix. Plavix currently on hold, resume when ok with surgery (4) Chronic obstructive pulmonary disease: Code(s): J44.9 - Chronic obstructive pulmonary disease, unspecified Status: Acute Assessment and Plan: No wheezing noted. Continue to follow clinically. (5) Tobacco abuse: Code(s): Z72.0 - Tobacco use Status: Acute Assessment and Plan: Smoking cessation was encouraged and was discussed. (6) Renal calculus: Code(s): N20.0 - Calculus of kidney Status: Acute Assessment and Plan: Nonobstructing renal calculi noted bilaterally, not an acute issue. Plan DVT prophylaxis with SCDs GI prophylaxis with PPI Code status full code Subjective Date/time seen: 01/27/23 09:57 Interval history: 62yo female with diabetes and COPD here for abdominal pain found to have SBO. NG removed yesterday, doing better. Eating more, still having BMs. No overnight events. Review of Systems Review of Systems: 12 point review of systems was assessed and was negative except as noted in the HPI Exam Narrative: General: No acute distress, alert and oriented per baseline HEENT: Atraumatic, normocephalic, mucous membranes moist CV: Regular rate and rhythm, S1, S2 Lungs: Clear to auscultation bilaterally, no rales or crackles noted, no wheezes, good air entry Abdomen: Soft, mildly tender, significantly distended above the incisions, incisions with stable clean/dry/intact Extremities: Normal to inspection Skin: No rashes noted, no lesions or wounds seen Psych: Euthymic, normal affect Objective Data Vital Signs Vital Signs: Vital Signs - 24 hr 01/26/23 12:00 01/26/23 16:00 01/26/23 20:00 Temperature 97.7 F 97.5 F L 96.9 F L Pulse Rate 75 77 84 Respiratory Rate 16 18 16 Blood Pressure 122/65 123/64 144/57 H Pulse Oximetry 95 96 95 01/27/23 00:00 01/27/23 04:00 01/27/23 08:00 Temperature 96.2 F L 96.1 F L 96.8 F L Pulse Rate 80 75 80 Respiratory Rate 16 20 18 Blood Pressure 127/56 L 126/64 142/58 H Pulse Oximetry 93 95 99 Intake/Output Intake/Output: Intake & Output 01/24/23 01/25/23 01/26/23 01/27/23 23:59 23:59 23:59 23:59 Intake Total 3300 2400 2490 268 Output Total 250 200 Balance 3050 2200 2490 268 Meds/Results Medications: Active Medications Generic Name Dose Route Start Last Admin Trade Name Freq PRN Reason Stop Dose Admin Al Hydrox/Mg Hydrox/Simethicone 30 ml 01/23/23 22:00 01/27/23 07:35 Mag Hydrox/Al Hydrox/Simeth 30 Ml Udc PO Not Given Q8H [facility] Dextrose 12.5 gm 01/22/23 23:15 01/26/23 00:02 Dextrose 50% 25 Gm/50 Ml Syringe IV PUSH 12.5 gm PRN PRN Administration Hypoglycemia Pr
[2023-01-27 11:46] LABS: Glucose Point of Care 131 mg/dl (65-105)
--- NOTE | 2023-01-27 11:58 | PCNFU ---
Nutrition Follow-Up Complete: Inadequate energy intake related to NPO status as evidenced by current diet order Goal: Diet advanced - Goal met PO intake 75% of meals - Goal not met. Progressing toward goal Pt current nutrition is Full liquid diet. 5% breakfast so far. Nutrition recommendation: Continue with diet advancement per MD. Encourage intakes as tolerated Last recorded weight is 64.2 kg. Bowel Motility: + BM 01/27/23 Labs Reviewed: Hgb 11.3, Hct 33.4, Alb 3.3, K+ 3.2, Cre 0.4 Meds Noted: Reglan, Zofran, Protonix, novolog Skin: WNL Additional Notes: Exploratory lap with lysis of adhesions 01/23/23. Diet advanced to full liquids. Appetite poor. Having bowel movements. Continue to monitor for diet advancement, other needs. Monitor diet order, intake, tolerance, wt. Follow up in 3 days.
--- NOTE | 2023-01-27 13:36 | PM.PNGS ---
Progress Note: A&P Assessment and Plan (1) Small bowel obstruction: Code(s): K56.609 - Unspecified intestinal obstruction, unspecified as to partial versus complete obstruction Status: Acute Assessment and Plan: Bowels moving, will advance diet as tolerated Possibly home tomorrow if continuing to improve. Subjective Subjective Date/Time Seen: 01/27/23 13:36 Interval history: Tolerating full liquids. Bowels moving. Pain controlled. Exam GI: Inspection: incision (intact with nallely) and other (Mild upper abdominal distension) GI Palp: Yes Soft to palpation, No Tenderness to palpation present (GI) and No Guarding due to palpation present (GI) Auscultation: normal bowel sounds Objective Data Vital Signs Vital Signs: Vital Signs - 24 hr 01/26/23 16:00 01/26/23 20:00 01/27/23 00:00 Temperature 36.4 C L 36.1 C L 35.7 C L Pulse Rate 77 84 80 Respiratory Rate 18 16 16 Blood Pressure 123/64 144/57 H 127/56 L Pulse Oximetry 96 95 93 Oxygen Delivery 01/27/23 04:00 01/27/23 08:00 01/27/23 08:30 Temperature 35.6 C L 36.0 C L Pulse Rate 75 80 Respiratory Rate 20 18 Blood Pressure 126/64 142/58 H Pulse Oximetry 95 99 Oxygen Delivery Room Air Intake/Output Intake/Output: Intake & Output 01/24/23 01/25/23 01/26/23 01/27/23 23:59 23:59 23:59 23:59 Intake Total 3300 2400 2490 468 Output Total 250 200 Balance 3050 2200 2490 468 Meds/Results Medications: Active Medications Generic Name Dose Route Start Last Admin Trade Name Freq PRN Reason Stop Dose Admin Al Hydrox/Mg Hydrox/Simethicone 30 ml 01/23/23 22:00 01/27/23 07:35 Mag Hydrox/Al Hydrox/Simeth 30 Ml Udc PO Not Given Q8H [facility] Dextrose 12.5 gm 01/22/23 23:15 01/26/23 00:02 Dextrose 50% 25 Gm/50 Ml Syringe IV PUSH 12.5 gm PRN PRN Administration Hypoglycemia Protocol Enoxaparin Sodium 40 mg 01/24/23 09:00 01/27/23 08:28 Enoxaparin 40 Mg/0.4 Ml Syringe SUB-Q 40 mg DAILY SUSHMA Administration Fentanyl Citrate 25 mcg 01/23/23 16:02 01/23/23 19:40 Fentanyl Citrate Inj (*Crx) 100 Mcg/2 Ml Vial IV PUSH 25 mcg Q2M PRN Administration Pain Glucagon 1 mg 01/22/23 23:15 Glucagon For Inj 1 Mg Vial IM PRN PRN Hypoglycemia Protocol Glucose 15 gm 01/22/23 23:15 Glucose Oral Gel 15 Gm Of Glucse In 37.5 Gm Tube PO PRN PRN Hypoglycemia Protocol Hydromorphone HCl 1 mg 01/23/23 20:02 01/24/23 15:37 Hydromorphone Hcl Inj (*Crx) 1 Mg/Ml Syr IV PUSH 1 mg Q3H PRN Administration Pain Rated 7-10 Dextrose 1,000 mls @ 100 mls/hr 01/22/23 23:15 Dextrose 5% 1,000 Ml IVPB PRN PRN Hypoglycemia Protocol Insulin Aspart 0 units 01/27/23 08:00 01/27/23 11:56 Insulin Aspart (*Bkc) 100 Units/Ml SUB-Q Not Given TIDWM [facility] Protocol Metoclopramide HCl 10 mg 01/24/23 12:00 01/27/23 11:55 Metoclopramide Hcl Inj 10 Mg/2 Ml Vial IV PUSH 10 mg Q6HR SUSHMA Administration Ondansetron HCl 4 mg 01/22/23 16:01 01/23/23 10:47 Ondansetron Inj 4 Mg/2 Ml Vial IV PUSH 4 mg Q4H PRN Administration Nausea Ondansetron HCl 4 mg 01/23/23 16:02 Ondansetron Inj 4 Mg/2 Ml Vial IV PUSH ONCE PRN Nausea Pantoprazole Sodium 40 mg 01/22/23 16:40 01/27/23 08:28 Pantoprazole Sodium Iv 40 Mg Vial IV PUSH 40 mg QAM SUSHMA Administration Radiology Results: ITS Impressions Abdomen/Pelvis CT 01/22/23 14:11 IMPRESSION: Partial small bowel obstruction suggested transition point in the right lower quadrant, with some edema of the mesentery in this region Minimal ascites 3.5 mm lower pole left renal nonobstructing calculus and suggestion of subtle pinpoint nonobstructing lower pole right renal calculus Status post cholecystectomy Small sliding hiatal hernia Small Bowel X-Ray 03/30/23 12:44 IMPRESSION: 1. High-grade small bowel obstruction. Abdomen X-Ray 01/26/23
[2023-01-27 15:33] VITALS: BP 144/70; PULSE 80; RESP 18; TEMP 36.2; O2SAT 98
--- NOTE | 2023-01-27 15:36 | PCOTNOTE ---
Pt. D/C from Occupational Therapy services, as she has returned to independence.
[2023-01-27 16:59] LABS: Glucose Point of Care 111 mg/dl (65-105)
[2023-01-27 20:00] VITALS: BP 140/66; PULSE 80; RESP 14; TEMP 35.6; O2SAT 95
[2023-01-27] MEDS: MAG HYDROX/AL HYDROX/SIMETH 30 ML UDC PO (21:15)
[2023-01-27 22:12] LABS: Glucose Point of Care 139 mg/dl (65-105)
[2023-01-28] VITALS (7 sets, daily range): BP systolic 126–141; BP diastolic 50–69; PULSE 75–80; RESP 16–18; TEMP 35.7–36.3; O2SAT 94–98
[2023-01-28] MEDS: MAG HYDROX/AL HYDROX/SIMETH 30 ML UDC PO (05:15)
[2023-01-28] MEDS: METOCLOPRAMIDE HCL INJ 10 MG/2 ML VIAL IV PUSH (05:16)
[2023-01-28 08:15] LABS: Glucose Point of Care 105 mg/dl (65-105)
[2023-01-28] MEDS: ENOXAPARIN 40 MG/0.4 ML SYRINGE SUB-Q (08:25)
[2023-01-28] MEDS: PANTOPRAZOLE SODIUM IV 40 MG VIAL IV PUSH (08:26)
--- NOTE | 2023-01-28 11:56 | PM.PNGS ---
Progress Note: A&P Assessment and Plan (1) Small bowel obstruction: Code(s): K56.609 - Unspecified intestinal obstruction, unspecified as to partial versus complete obstruction Status: Acute Assessment and Plan: still c/o swelling at her upper part of incision. Will get CT abd/pelvis today to assess for possibly fascial dehiscence vs seroma. Will stop reglan now. Subjective Subjective Date/Time Seen: 01/28/23 11:56 Interval history: Patient still having abdominal pain and more swelling in the upper part of the incision. Bowels moving. Vomited last night once but tolerating diet today. Exam GI: Other: Upper part of incision is slightly distended. Tender to palpation. Objective Data Vital Signs Vital Signs: Vital Signs - 24 hr 01/27/23 15:33 01/27/23 20:00 01/27/23 20:00 Temperature 36.2 C L 35.6 C L Pulse Rate 80 80 Respiratory Rate 18 14 Blood Pressure 144/70 H 140/66 Pulse Oximetry 98 95 Oxygen Delivery Room Air 01/28/23 00:00 01/28/23 04:00 01/28/23 08:00 Temperature 35.7 C L 35.8 C L 36.3 C L Pulse Rate 76 75 77 Respiratory Rate 18 16 16 Blood Pressure 136/50 L 126/66 131/62 Pulse Oximetry 97 97 97 Oxygen Delivery 01/28/23 08:25 Temperature Pulse Rate Respiratory Rate Blood Pressure Pulse Oximetry Oxygen Delivery Room Air Intake/Output Intake/Output: Intake & Output 01/25/23 01/26/23 01/27/23 01/28/23 23:59 23:59 23:59 23:59 Intake Total 2400 2490 1708 670 Output Total 200 Balance 2200 2490 1708 670 Meds/Results Medications: Active Medications Generic Name Dose Route Start Last Admin Trade Name Freq PRN Reason Stop Dose Admin Acetaminophen 650 mg 01/28/23 00:00 Acetaminophen 325 Mg Tablet PO Q6H PRN Mild Pain (1-3) or Fever Al Hydrox/Mg Hydrox/Simethicone 30 ml 01/23/23 22:00 01/28/23 05:15 Mag Hydrox/Al Hydrox/Simeth 30 Ml Udc PO 30 ml Q8H SUSHMA Administration Dextrose 12.5 gm 01/22/23 23:15 01/26/23 00:02 Dextrose 50% 25 Gm/50 Ml Syringe IV PUSH 12.5 gm PRN PRN Administration Hypoglycemia Protocol Enoxaparin Sodium 40 mg 01/24/23 09:00 01/28/23 08:25 Enoxaparin 40 Mg/0.4 Ml Syringe SUB-Q 40 mg DAILY SUSHMA Administration Fentanyl Citrate 25 mcg 01/23/23 16:02 01/23/23 19:40 Fentanyl Citrate Inj (*Crx) 100 Mcg/2 Ml Vial IV PUSH 25 mcg Q2M PRN Administration Pain Glucagon 1 mg 01/22/23 23:15 Glucagon For Inj 1 Mg Vial IM PRN PRN Hypoglycemia Protocol Glucose 15 gm 01/22/23 23:15 Glucose Oral Gel 15 Gm Of Glucse In 37.5 Gm Tube PO PRN PRN Hypoglycemia Protocol Hydromorphone HCl 1 mg 01/23/23 20:02 01/24/23 15:37 Hydromorphone Hcl Inj (*Crx) 1 Mg/Ml Syr IV PUSH 1 mg Q3H PRN Administration Pain Rated 7-10 Dextrose 1,000 mls @ 100 mls/hr 01/22/23 23:15 Dextrose 5% 1,000 Ml IVPB PRN PRN Hypoglycemia Protocol Insulin Aspart 0 units 01/27/23 08:00 01/28/23 11:46 Insulin Aspart (*Bkc) 100 Units/Ml SUB-Q Not Given TIDWM [facility] Protocol Metoclopramide HCl 10 mg 01/24/23 12:00 01/28/23 11:46 Metoclopramide Hcl Inj 10 Mg/2 Ml Vial IV PUSH Not Given Q6HR [facility] Ondansetron HCl 4 mg 01/22/23 16:01 01/23/23 10:47 Ondansetron Inj 4 Mg/2 Ml Vial IV PUSH 4 mg Q4H PRN Administration Nausea Ondansetron HCl 4 mg 01/23/23 16:02 Ondansetron Inj 4 Mg/2 Ml Vial IV PUSH ONCE PRN Nausea Pantoprazole Sodium 40 mg 01/22/23 16:40 01/28/23 08:26 Pantoprazole Sodium Iv 40 Mg Vial IV PUSH 40 mg QAM SUSHMA Administration Radiology Results: ITS Impressions Abdomen/Pelvis CT 01/22/23 14:11 IMPRESSION: Partial small bowel obstruction suggested transition point in the right lower quadrant, with some edema of the mesentery in this region Minimal ascites 3.5 mm lower pole left renal nonobstructing calculus and suggestion of subtle pinpoint
[2023-01-28 12:05] LABS: Glucose Point of Care 115 mg/dl (65-105)
--- NOTE | 2023-01-28 12:15 | PM.IMPN ---
Progress Note: A&P Assessment and Plan (1) Small bowel obstruction: Code(s): K56.609 - Unspecified intestinal obstruction, unspecified as to partial versus complete obstruction Status: Acute Assessment and Plan: Patient presents with abdominal pain and found to have small-bowel obstruction on imaging. GenSurg was consulted. Small-bowel series shows high-grade small-bowel obstruction. She underwent exploratory laparotomy with abdominal adhesive lysis on 01/23/23 Continue routine postoperative care. NGT removed 01/26, diet advanced Concern for abdominal distention, management per surgery, possible seroma vs fascial dehiscence, CT abd/pelvis pending (2) Type 2 diabetes mellitus: Code(s): E11.9 - Type 2 diabetes mellitus without complications Status: Acute Assessment and Plan: The patient's blood glucose was reviewed on 01/28 Glucose remains reasonably well controlled. Continue AccuCheks covering with sliding scale. Hypoglycemia protocol available as needed. Continue to monitor (3) Antiplatelet or antithrombotic long-term use: Code(s): Z79.02 - [facility] (current) use of antithrombotics/antiplatelets Status: Acute Assessment and Plan: Patient reported history of multiple TIAs over 10 years ago and subsequently was started on Plavix. Plavix currently on hold, resume when ok with surgery (4) Chronic obstructive pulmonary disease: Code(s): J44.9 - Chronic obstructive pulmonary disease, unspecified Status: Acute Assessment and Plan: No wheezing noted. Continue to follow clinically. (5) Tobacco abuse: Code(s): Z72.0 - Tobacco use Status: Acute Assessment and Plan: Smoking cessation was encouraged and was discussed. (6) Renal calculus: Code(s): N20.0 - Calculus of kidney Status: Acute Assessment and Plan: Nonobstructing renal calculi noted bilaterally, not an acute issue. Plan DVT prophylaxis with SCDs GI prophylaxis with PPI Code status full code Subjective Date/time seen: 01/28/23 12:15 Interval history: 62yo female with diabetes and COPD here for abdominal pain found to have SBO. Several episodes of diarrhea, continued abdominal distention and discomfort, improving today with ambulation. No F/C/N/V/CP/SOB. Review of Systems Review of Systems: 12 point review of systems was assessed and was negative except as noted in the HPI Exam Narrative: General: No acute distress, alert and oriented per baseline HEENT: Atraumatic, normocephalic, mucous membranes moist CV: Regular rate and rhythm, S1, S2 Lungs: Clear to auscultation bilaterally, no rales or crackles noted, no wheezes, good air entry Abdomen: Soft, mildly tender, significantly distended above the incisions, incisions with stable clean/dry/intact Extremities: Normal to inspection Skin: No rashes noted, no lesions or wounds seen Psych: Euthymic, normal affect Objective Data Vital Signs Vital Signs: Vital Signs - 24 hr 01/27/23 15:33 01/27/23 20:00 01/27/23 20:00 Temperature 97.1 F L 96.1 F L Pulse Rate 80 80 Respiratory Rate 18 14 Blood Pressure 144/70 H 140/66 Pulse Oximetry 98 95 Oxygen Delivery Room Air 01/28/23 00:00 01/28/23 04:00 01/28/23 08:00 Temperature 96.3 F L 96.5 F L 97.4 F L Pulse Rate 76 75 77 Respiratory Rate 18 16 16 Blood Pressure 136/50 L 126/66 131/62 Pulse Oximetry 97 97 97 Oxygen Delivery 01/28/23 08:25 Temperature Pulse Rate Respiratory Rate Blood Pressure Pulse Oximetry Oxygen Delivery Room Air Intake/Output Intake/Output: Intake & Output 01/25/23 01/26/23 01/27/23 01/28/23 23:59 23:59 23:59 23:59 Intake Total 2400 2490 1708 670 Output Total 200 Balance 2200 2490 1708 670 Meds/Results Medications: Active Medications Generic Name Dose Route Start Last Admin Trade Name Freq PRN Reason Stop Dose Admin Acetamino
[2023-01-28 17:21] LABS: Glucose Point of Care 103 mg/dl (65-105)
[2023-01-28 20:25] LABS: Glucose Point of Care 132 mg/dl (65-105)
[2023-01-29 04:41] VITALS: BP 133/60; PULSE 66; RESP 14; TEMP 35.8; O2SAT 95
[2023-01-29 07:38] LABS: Glucose Point of Care 123 mg/dl (65-105)
[2023-01-29] MEDS: PANTOPRAZOLE SODIUM IV 40 MG VIAL IV PUSH (09:05)
[2023-01-29 11:20] LABS: Glucose Point of Care 187 mg/dl (65-105)
--- NOTE | 2023-01-29 11:40 | PM.PNGS ---
Progress Note: A&P Assessment and Plan (1) Small bowel obstruction: Code(s): K56.609 - Unspecified intestinal obstruction, unspecified as to partial versus complete obstruction Status: Acute Assessment and Plan: CT abd/pelvis was unremarkable, fascia intact and no fluid collection. She is tolerating a low fiber diet and bowels are moving. No more nausea or vomiting. Okay to discharge from a surgical standpoint. F/u with Dr. Delgado next week for staple removal. Plan I have discussed the patient's case and plan of care with Dr. Pride. Subjective Subjective Date/Time Seen: 01/29/23 10:40 Patient reports: no new complaints, tolerating a regular diet, flatus, bowel movement and afebrile Interval history: Patient feeling better today. She had some nausea and vomiting 2 nights ago, but this has resolved. No nausea today. Does report some mild intermittent cramping abdominal pain that was ongoing over the past 2 days, but this has significantly improved. No abdominal pain at this time. Tolerating a low-fiber diet. She has had 2 bowel movements already today that are reportedly loose. She feels the swelling in the upper part of her incision has come down some. She is tolerating activity. No other complaints at this time. Review of Systems Review of Systems: All systems reviewed & are unremarkable except as noted in HPI and below Exam Const: General: comfortable, no acute distress and awake Orientation/consciousness: patient oriented x3 GI: Inspection: non-distended and incision (dry with nallely intact, no erythema) GI Palp: Yes Soft to palpation, No Tenderness to palpation present (GI) and No Guarding due to palpation present (GI) Auscultation: normal bowel sounds Neuro: General: moves all extremities Extrem: General: no edema Psych: Mental Status: mental status grossly normal Insight: Good insight present (Psych) Objective Data Vital Signs Vital Signs: Vital Signs - 24 hr 01/28/23 12:00 01/28/23 15:59 01/28/23 20:00 Temperature 97.1 F L 97.4 F L Pulse Rate 77 80 Respiratory Rate 18 16 Blood Pressure 141/67 H 135/69 Pulse Oximetry 96 98 98 Oxygen Delivery Room Air 01/28/23 22:00 01/29/23 04:41 01/29/23 09:05 Temperature 97.1 F L 96.4 F L Pulse Rate 75 66 Respiratory Rate 16 14 Blood Pressure 133/51 L 133/60 Pulse Oximetry 94 95 Oxygen Delivery Room Air Intake/Output Intake/Output: Intake & Output 01/26/23 01/27/23 01/28/23 01/29/23 23:59 23:59 23:59 23:59 Intake Total 2490 1708 1830 270 Balance 2490 1708 1830 270 Meds/Results Medications: Active Medications Generic Name Dose Route Start Last Admin Trade Name Freq PRN Reason Stop Dose Admin Acetaminophen 650 mg 01/28/23 00:00 Acetaminophen 325 Mg Tablet PO Q6H PRN Mild Pain (1-3) or Fever Dextrose 12.5 gm 01/22/23 23:15 01/26/23 00:02 Dextrose 50% 25 Gm/50 Ml Syringe IV PUSH 12.5 gm PRN PRN Administration Hypoglycemia Protocol Enoxaparin Sodium 40 mg 01/24/23 09:00 01/29/23 09:53 Enoxaparin 40 Mg/0.4 Ml Syringe SUB-Q Not Given DAILY [facility] Fentanyl Citrate 25 mcg 01/23/23 16:02 01/23/23 19:40 Fentanyl Citrate Inj (*Crx) 100 Mcg/2 Ml Vial IV PUSH 25 mcg Q2M PRN Administration Pain Glucagon 1 mg 01/22/23 23:15 Glucagon For Inj 1 Mg Vial IM PRN PRN Hypoglycemia Protocol Glucose 15 gm 01/22/23 23:15 Glucose Oral Gel 15 Gm Of Glucse In 37.5 Gm Tube PO PRN PRN Hypoglycemia Protocol Hydromorphone HCl 1 mg 01/23/23 20:02 01/24/23 15:37 Hydromorphone Hcl Inj (*Crx) 1 Mg/Ml Syr IV PUSH 1 mg Q3H PRN Administration Pain Rated 7-10 Dextrose 1,000 mls @ 100 mls/hr 01/22/23 23:15 Dextrose 5% 1,000 Ml IVPB PRN PRN Hypoglycemia Protocol Insulin Aspart 0 units 01/27/23 08:00 01/29/23 07:41 Insulin Aspart (*Bkc) 100 Units/Ml SUB-Q Not Given TIDWM SUSHMA
--- NOTE | 2023-01-29 12:34 | PM.IMPN ---
Progress Note: A&P Assessment and Plan (1) Small bowel obstruction: Code(s): K56.609 - Unspecified intestinal obstruction, unspecified as to partial versus complete obstruction Status: Acute Assessment and Plan: Patient presents with abdominal pain and found to have small-bowel obstruction on imaging. GenSurg was consulted. Small-bowel series shows high-grade small-bowel obstruction. She underwent exploratory laparotomy with abdominal adhesive lysis on 01/23/23 Continue routine postoperative care. NGT removed 01/26, diet advanced 01/29: Improving, okay to discharge per surgery (2) Type 2 diabetes mellitus: Code(s): E11.9 - Type 2 diabetes mellitus without complications Status: Acute Assessment and Plan: The patient's blood glucose was reviewed on 01/29 Glucose remains reasonably well controlled. Continue AccuCheks covering with sliding scale. Hypoglycemia protocol available as needed. Continue to monitor (3) Antiplatelet or antithrombotic long-term use: Code(s): Z79.02 - [facility] (current) use of antithrombotics/antiplatelets Status: Acute Assessment and Plan: Patient reported history of multiple TIAs over 10 years ago and subsequently was started on Plavix. Plavix currently on hold, resume when ok with surgery (4) Chronic obstructive pulmonary disease: Code(s): J44.9 - Chronic obstructive pulmonary disease, unspecified Status: Acute Assessment and Plan: No wheezing noted. Continue to follow clinically. (5) Tobacco abuse: Code(s): Z72.0 - Tobacco use Status: Acute Assessment and Plan: Smoking cessation was encouraged and was discussed. (6) Renal calculus: Code(s): N20.0 - Calculus of kidney Status: Acute Assessment and Plan: Nonobstructing renal calculi noted bilaterally, not an acute issue. Plan DVT prophylaxis with SCDs GI prophylaxis with PPI Code status full code Subjective Date/time seen: 01/29/23 12:34 Interval history: 62yo female with diabetes and COPD here for abdominal pain found to have SBO. Patient states she only had 1 episode of diarrhea. Some cramping with p.o. intake. Otherwise, her pain is improving and she denies any nausea. No overnight events noted. No chest pain or shortness of breath. No fevers or chills. Review of Systems Review of Systems: 12 point review of systems was assessed and was negative except as noted in the HPI Exam Narrative: General: No acute distress, alert and oriented per baseline HEENT: Atraumatic, normocephalic, mucous membranes moist CV: Regular rate and rhythm, S1, S2 Lungs: Clear to auscultation bilaterally, no rales or crackles noted, no wheezes, good air entry Abdomen: Soft, mildly tender, significantly distended above the incisions, incisions with stable clean/dry/intact Extremities: Normal to inspection Skin: No rashes noted, no lesions or wounds seen Psych: Euthymic, normal affect Objective Data Vital Signs Vital Signs: Vital Signs - 24 hr 01/28/23 15:59 01/28/23 20:00 01/28/23 22:00 Temperature 97.4 F L 97.1 F L Pulse Rate 80 75 Respiratory Rate 16 16 Blood Pressure 135/69 133/51 L Pulse Oximetry 98 98 94 Oxygen Delivery Room Air 01/29/23 04:41 01/29/23 09:05 Temperature 96.4 F L Pulse Rate 66 Respiratory Rate 14 Blood Pressure 133/60 Pulse Oximetry 95 Oxygen Delivery Room Air Intake/Output Intake/Output: Intake & Output 01/26/23 01/27/23 01/28/23 01/29/23 23:59 23:59 23:59 23:59 Intake Total 2490 1708 1830 270 Balance 2490 1708 1830 270 Meds/Results Medications: Active Medications Generic Name Dose Route Start Last Admin Trade Name Freq PRN Reason Stop Dose Admin Acetaminophen 650 mg 01/28/23 00:00 Acetaminophen 325 Mg Tablet PO Q6H PRN Mild Pain (1-3) or Fever Dextrose 12.5 gm 01/22/23 23:15 01/26/23 00:02 Cherelle
--- NOTE | 2023-01-29 12:36 | PM.DS ---
DS: Admitting Diagnosis Discharge Date 01/29/23 Admitting Diagnosis abdominal pain DS: Discharge Diagnosis Discharge Diagnosis (1) Small bowel obstruction: Code(s): K56.609 - Unspecified intestinal obstruction, unspecified as to partial versus complete obstruction Status: Acute Assessment and Plan: Patient presents with abdominal pain and found to have small-bowel obstruction on imaging. GenSurg was consulted. Small-bowel series shows high-grade small-bowel obstruction. She underwent exploratory laparotomy with abdominal adhesive lysis on 01/23/23 Continue routine postoperative care. NGT removed 01/26, diet advanced 01/29: Improving, okay to discharge per surgery (2) Type 2 diabetes mellitus: Code(s): E11.9 - Type 2 diabetes mellitus without complications Status: Acute Assessment and Plan: The patient's blood glucose was reviewed on 01/29 Glucose remains reasonably well controlled. Continue AccuCheks covering with sliding scale. Hypoglycemia protocol available as needed. Continue to monitor (3) Antiplatelet or antithrombotic long-term use: Code(s): Z79.02 - [facility] (current) use of antithrombotics/antiplatelets Status: Acute Assessment and Plan: Patient reported history of multiple TIAs over 10 years ago and subsequently was started on Plavix. Plavix currently on hold, resume when ok with surgery (4) Chronic obstructive pulmonary disease: Code(s): J44.9 - Chronic obstructive pulmonary disease, unspecified Status: Acute Assessment and Plan: No wheezing noted. Continue to follow clinically. (5) Tobacco abuse: Code(s): Z72.0 - Tobacco use Status: Acute Assessment and Plan: Smoking cessation was encouraged and was discussed. (6) Renal calculus: Code(s): N20.0 - Calculus of kidney Status: Acute Assessment and Plan: Nonobstructing renal calculi noted bilaterally, not an acute issue. Plan DVT prophylaxis with SCDs GI prophylaxis with PPI Code status full code DS: Summary Hospital Course Hospital Course: 62yo female with diabetes and COPD here for abdominal pain. GenSurg was consulted.? Small-bowel series shows high-grade small-bowel obstruction. She underwent exploratory laparotomy with abdominal adhesive lysis on 01/23/2023.? She tolerated the procedure well.? Pain is well controlled. Patient did experience some swelling in her upper abdomen. CT abdomen pelvis showed small ileus. This resolved with ambulation and p.o. intake. She was discharged in stable condition with outpatient follow-up by surgery. See above and [facility] rec for details. Time Spent with Patient Time attestation: Total time spent providing and/or coordinating discharge services: Exam Narrative: General: No acute distress, alert and oriented per baseline HEENT: Atraumatic, normocephalic, mucous membranes moist CV: Regular rate and rhythm, S1, S2 Lungs: Clear to auscultation bilaterally, no rales or crackles noted, no wheezes, good air entry Abdomen: Soft, mildly tender, significantly distended above the incisions, incisions with stable clean/dry/intact Extremities: Normal to inspection Skin: No rashes noted, no lesions or wounds seen Psych: Euthymic, normal affect DS: Data Data Completed and Pending Labs on day of discharge: Labs from last 24 hours 01/29/23 01/29/23 01/28/23 11:13 07:34 20:10 POC Capillary Glucose 187 H 123 H 132 H 01/28/23 17:15 POC Capillary Glucose 103 Discharge Plan Discharge Attending physician on discharge: Yesika Singh Consulting providers: Dwayne Delgado Discharging Clinician: Yesika Singh Patient Disposition: Home, Self-Care Activity: may shower and other - see discharge instructions Diet: regular Wound Care Instructions: other - see discharge instructions Discharge Instructions: postoperative instructi
== END 2023-01-29 14:00 | disposition home or self-care (01) | DRG 337 ==
LOC: ANHED 14:01 → ANH3MEDSUR 16:15
PROVIDERS: Internal Medicine; Nurse Practitioner Family; Surgery; Admitting Provider Family Medicine; Emergency Provider Emergency Medicine; PCP Physician Assistant; Visit Provider Student in an Organized Health Care Education/Training Program
PROC: 0DNU0ZZ Release Omentum, Open Approach (ICD-10-PCS; CPT 49000; principal; 2023-01-23 17:00)
DX: K56.50 Intestinal adhesions [bands], unspecified as to partial versus complete obstruction (principal); E11.9 Type 2 diabetes mellitus without complications; Z79.02 Long term (current) use of antithrombotics/antiplatelets; J44.9 Chronic obstructive pulmonary disease, unspecified; F17.210 Nicotine dependence, cigarettes, uncomplicated; N20.0 Calculus of kidney
CPT/HCPCS: 36415; 74018; 74019; 74176; 74177; 74250; 80048; 80053; 82948; 83605; 83690; 83735; 84100; 84439; 84443; 84480; 85025; 85027; 85610; 85730; 86850; 86900; 86901; 93005; 96365; 96375; 97110; 97116; 97161; 97165; 97535; 99285; A9270; C9113; C9290; J0131; J1100; J1170; J1650; J2250; J2270; J2405; J2543; J2704; J2710; J2765; J3010; J3480; J7030; J7040; J7120; Q9967

== ENCOUNTER 2025-06-30 11:13 | Outpatient (CLI) | payer BC, SELFPAY ==
--- NOTE | ~2025-06-30 | CT_ITS ---
EXAMINATION: CT abdomen pelvis wo con DATE: 06/30/2025 11:40 INDICATION: Hematuria TECHNIQUE: Computed tomography (CT) of the abdomen and pelvis was performed without intravenous contrast. Automated exposure control and iterative reconstruction technique were employed. The dose-length product was 336.72 mGy-cm. COMPARISON: None FINDINGS: Lung bases are clear. Heart size normal. Atherosclerotic coronary artery calcification. No pericardial or pleural effusion. Diffuse mild wall thickening in the distal esophagus consistent with esophagitis. Cholecystectomy clips at the gallbladder fossa. Liver, spleen, bilateral adrenal glands are normal. Multiple small dystrophic calcifications at the head of the pancreas consistent with sequela of chronic pancreatitis. Bilateral nephrolithiasis with 3 stones in the right kidney the largest measuring 1.1 cm at the right renal pelvis and 2 in the lower pole the left kidney the larger measuring 4 mm. There is no hydronephrosis however there is some stranding surrounding the left right renal pelvis suggestive of pyelitis which could be septic or aseptic related to the presence of the large renal stone. Likely benign 1.1 cm rim calcified exophytic lesion arising from the lower pole the left kidney unchanged in size but with increase in the rim calcification when compared with CT dated 08/27/2017. Bowels including the appendix are normal. Bladder is normal. The uterus is not identified and has likely been surgically resected. No free intraperitoneal gas or fluid. No pathologically enlarged abdominal or pelvic lymphadenopathy. Mild degenerative skeletal changes in the spine and pelvis. IMPRESSION: 1. Bilateral nephrolithiasis with mild stranding findings right renal pelvis where there is a 1.1 cm stone consistent with pyelitis which could be either septic or aseptic. Correlate with urinalysis. Reviewed, dictated and finalized at location A. IMPRESSION: 1. Bilateral nephrolithiasis with mild stranding findings right renal pelvis wh ere there is a 1.1 cm stone consistent with pyelitis which could be either sept ic or aseptic. Correlate with urinalysis.
== END 2025-06-30 11:14 | disposition home or self-care (01) ==
LOC: GOSHIMG 11:13
PROVIDERS: PCP Internal Medicine; Visit Provider Nurse Practitioner
DX: N20.0 Calculus of kidney (principal)
CPT/HCPCS: 74176

== ENCOUNTER 2025-07-01 11:02 | Observation (INO) | payer BC, SELFPAY ==
[2025-07-01] VITALS (11 sets, daily range): BP systolic 91–123; BP diastolic 42–99; PULSE 80–99; RESP 16–24; TEMP 36–36.7; O2SAT 95–100
--- NOTE | ~2025-07-01 | XR_ITS ---
EXAM/PROCEDURE: XR abdomen/kub 1V - 07/01/2025 12:16 CDT HISTORY: 65 years old Female with kidney stone, RIGHT SIDED PAIN COMPARISON: None available. TECHNIQUE: AP view(s) of the abdomen. FINDINGS: The bowel gas pattern is normal. There is no evidence for obstruction. No free intraperitoneal air is identified on this supine radiograph. Cholecystectomy clips are seen. The visualized soft tissue shadows are unremarkable. Degenerative changes are noted. Visualized portions of lung bases are clear. IMPRESSION: No acute process. Reviewed, dictated and finalized at location N. IMPRESSION: No acute process.
--- NOTE | ~2025-07-01 | XR_ITS ---
EXAMINATION: XR retrograde pyelo w/stent RT DATE: 07/01/2025 15:14 INDICATION: Right internal ureteral stent placement TECHNIQUE: Fluoroscopic images from a right internal ureteral stent placement are submitted for review. 21 seconds of fluoroscopy time. FINDINGS: There is a right double-J internal ureteral stent projecting in expected position, with proximal [place] loop at the level of the renal pelvis and distal loop in the pelvis within the bladder lumen. IMPRESSION: 1. Right internal ureteral stent placement. Please refer to real-time procedural findings for details. Reviewed, dictated and finalized at location O. IMPRESSION: 1. Right internal ureteral stent placement. Please refer to real-time procedu ral findings for details.
[2025-07-01] MEDS: SODIUM CHLORIDE 0.9% IV 1,000 ML 999 ML IV CONT (12:07)
[2025-07-01] MEDS: ONDANSETRON INJ 4 MG/2 ML VIAL IV PUSH (12:08)
[2025-07-01] MEDS: MORPHINE SULFATE (*CRX) 4 MG/ML INJ IV PUSH (12:11)
[2025-07-01 12:22] LABS: Hematocrit 41.0 % (37.0-47.0); Hemoglobin 13.7 g/dL (12.0-15.0); Immature Granulocyte Percent A 0.2 % (0-0.5); Lymphocytes Absolute Auto 1.93 K/mm3 (0.9-3.2); Mean Corpuscular HGB Conc 33.4 g/dl (32-36); Mean Corpuscular Hemoglobin 32.1 pg (26-34); Mean Corpuscular Volume 96.0 fl (80-100); Nucleated Red Blood Cells Absolute Auto 0.000 K/mm3 (0.0-0.012); Nucleated Red Blood Cells Perc 0.0 % (0.0-0.2); Platelet Count Result 268 k/mm3 (150-375); Red Blood Count 4.27 M/mm3 (4.2-5.4); White Blood Count 10.3 K/mm3 (4.5-10.0)
--- NOTE | 2025-07-01 12:25 | ED_ITS ---
HPI - General Adult General Chief complaint: Back Pain/Injury Stated complaint: hx of kidney stones Time Seen by Provider: 07/01/25 11:41 History of Present Illness HPI narrative: Patient is a 65-year-old female presents emergency department chief complaint of right flank pain. Patient reports that the last 2 weeks she has been having discomfort in the right flank area patient states that symptoms are not improved by anything reports she had an outpatient CT scan that showed that she had a large kidney stone with irritation in the renal pelvis patient states that decided to come to the emergency department today as her symptoms were not improving and she found out that she had a kidney stone Related Data Allergies Allergy/AdvReac Type Severity Reaction Status Date / Time hydrocodone AdvReac Severe NAUSEA AND Verified 07/01/25 14:49 VOMITING Review of Systems 2 Review of Systems: A 10 system review of systems was completed on the patient and is negative except for what is stated in the HPI. Nursing and ancillary documentation was reviewed. [facility] Past Medical History Medical History Chronic obstructive pulmonary disease Renal calculus Tobacco abuse Type 2 diabetes mellitus Transient ischemic attack Antiplatelet or antithrombotic long-term use History of TIA (transient ischemic attack) Reported history of multiple TIAs over 10 years ago and subsequently was started on Plavix Irritable bowel Coronary artery disease Surgical History Surgical History Hx of exploratory laparotomy Exploratory laparotomy with abdominal adhesiolysis performed 01/22/23 History of total abdominal hysterectomy and bilateral salpingo-oophorectomy History of cholecystectomy Open cholecystectomy Family History Family History Mother Hypertension Sibling Breast cancer Diabetes mellitus Hypertension Social History Social History Social History: Surrogate medical decision maker: Russell Mueller, friend. Code status: Full code. 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 HEAD: Normocephalic, atraumatic. EYES: PERRLA and EOMI. ENT: Nares clear, no rhinorrhea or epistaxis. Mucous membranes moist. NECK: Supple. CHEST: Clear to auscultation. No respiratory distress. HEART: Regular rate and rhythm. No murmur heard. Normal peripheral pulses. ABDOMEN: Soft, nontender, nondistended, normal active bowel sounds. EXTREMITIES: Normal range of motion. No edema. SKIN: Warm, dry, no rash. NEURO: No focal deficits. Alert and oriented x3. PSYCH: Normal mood and affect. Course Vital Signs Vital signs: Vital Signs Temperature 36.7 C 07/01/25 11:35 Pulse Rate 99 07/01/25 11:35 Respiratory Rate 16 07/01/25 11:35 Blood Pressure 110/99 H 07/01/25 11:35 Pulse Oximetry 98 07/01/25 11:35 Oxygen Delivery Room Air 07/01/25 11:35 Temperature 36.1 C L 07/01/25 15:20 Pulse Rate 81 07/01/25 15:35 Respiratory Rate 18 07/01/25 15:35 Blood Pressure 101/54 L 07/01/25 15:35 Pulse Oximetry 98 07/01/25 15:35 Oxygen Delivery Room Air 07/01/25 15:35 Oxygen Flow Rate 8 07/01/25 15:20 Medical Decision Making MDM Narrative Medical decision making narrative: Differential diagnosis includes ureterolithiasis, pyelonephritis, Patient 1.[address] scan. Patient's urinalysis today shows 21-50 white blood cells 1+ leukocyte esterase patient is afebrile with white count of 10.3 case was discussed with Urology will take patient to the operating room and patient be admitted to the hospitalist service patient given a dose Rocephin in the emergency department Vital Signs Vital Signs: Vital Signs Temperature 36.7 C 07/01/25 11:35 Pulse Rate 99 07/01/25 11:35 Respiratory Rate 16 07/01/25 11:35 Blood Pressure 110/99 H 07/01/25 11:35 Pulse Oximetry 98 07/01/25 11:35 Oxygen Delivery Room Air 07/01/25 11:35 Temperature 36.1 C L 07/01/25 15:20 Pulse Rate 81 07/01/25 15:35 Respiratory Rate 18 07/01/25 15:35 Blood Pressure 101/54 L 07/01/25 15:35 Pulse Oximetry 98 07/01/25 15:35 Oxygen Delivery Room Air 07/01/25 15:35 Oxygen Flow Rate 8 07/01/25 15:20 Lab Data 07/01/25 12:11 07/01/25 12:11 Labs: Lab Results 07/01/25 07/01/25 07/01/25 Range/Units 12:11 14:41 15:39 WBC 10.3 H (4.5-10.0) K/mm3 RBC 4.27 (4.2-5.4) M/mm3 Hgb 13.7 (12.0-15.0) g/dL Hct 41.0 (37.0-47.0) % MCV 96.0 (80-100) fl MCH 32.1 (26-34) pg MCHC 33.4 (32-36) g/dl RDW 13.2 (11.5-14.5) % Plt Count 268 (150-375) k/mm3 MPV 9.2 (7.4-10.4) fl Immature Gran % (Auto) 0.2 (0-0.5) % Neut % (Auto) 70.4 (45.5-73.1) % Lymph % (Auto) 18.7 (18.3-44.2) % [place] % (Auto) 8.5 (2.6-8.5) % Eos % (Auto) 2.0 (0-4.4) % Baso % (Auto) 0.2 (0.2-1.2) % Lymph # (Auto) 1.93 (0.9-3.2) K/mm3 [place] # (Auto) 0.9 H (0.1-0.6) K/mm3 Eos # (Auto) 0.2 (0-0.3) K/mm3 Baso # (Auto) 0.0 (0.0-0.1) K/mm3 Abs Immat Gran (auto) 0.02 (0.00-0.031) K/mm3 Absolute Neuts (auto) 7.3 H (1.3-6.7) K/mm3 Absolute Nucleated RBC 0.000 (0.0-0.012) K/mm3 Nucleated RBC % 0.0 (0.0-0.2) % Sodium 135 L (137-145) mmol/L Potassium 4.1 (3.4-5.0) mmol/L Chloride 101 (98-107) mmol/L Carbon Dioxide 23 (22-30) mmol/L Anion Gap 11 (4-12) mmol/L BUN 10 (7-17) mg/dL Creatinine 0.67 L (0.7-1.0) mg/dL Estim Creat Clear Calc 60 ml/min Estimated GFR > 60 (59 - ) Glucose 187 H (65-110) mg/dL POC Capillary Glucose 150 H 124 H (65-105) mg/dl Calcium 9.7 (8.4-10.2) mg/dL Total Bilirubin 0.5 (0.2-1.3) mg/dL AST 32 (14-36) U/L ALT 23 (6-35) U/L Alkaline Phosphatase 80 (38-126) U/L Total Protein 7.5 (6.3-8.2) g/dL Albumin 4.4 (3.5-5.1) g/dL Urine Color Yellow (Yellow) Urine Appearance Clear (Clear) Urine pH 5.5 (5.0-9.0) Ur Specific [place] 1.013 (1.001-1.035) Urine Protein 2+ H (Negative) mg/dL Urine Glucose (UA) Negative (Negative) mg/dL Urine Ketones Negative (Negative) mg/dL Ur Blood (Man) 3+ H (Negative) Urine Nitrate Negative (Negative) Urine Bilirubin Negative (Negative) Urine Urobilinogen 0.2 (<2.0) mg/dL Leukocyte Esterase Rfl 1+ H (Negative) KARISSA/UL Urine RBC >100 H (0-2) /hpf Urine WBC 21-50 H (0-3) /hpf Ur Squamous Epith Cells Few (Few) /hpf Urine Bacteria None seen /hpf Urine Casts 0-2 Discharge Plan Discharge Clinical Impression: Ureterolithiasis, Acute flank pain UTI (urinary tract infection) Qualifiers: Urinary tract infection type: acute cystitis Hematuria presence: without hematuria Qualified Code(s): N30.00 - Acute cystitis without hematuria Patient Disposition: Still a Patient Condition: Stable
[2025-07-01 12:40] LABS: Alanine Aminotransferase 23 U/L (6-35); Albumin Level 4.4 g/dL (3.5-5.1); Alkaline Phosphatase 80 U/L (38-126); Anion Gap 11 mmol/L (4-12); Aspartate Amino Transferase 32 U/L (14-36); Bilirubin,Total 0.5 mg/dL (0.2-1.3); Blood Urea Nitrogen 10 mg/dL (7-17); Calcium 9.7 mg/dL (8.4-10.2); Carbon Dioxide 23 mmol/L (22-30); Chloride 101 mmol/L (98-107); Estimated CRCL calculation 60 ml/min; Estimated Glomerular Filt Rate > 60; Glucose 187 mg/dL (65-110); Potassium 4.1 mmol/L (3.4-5.0); Sodium 135 mmol/L (137-145); Total Protein 7.5 g/dL (6.3-8.2)
[2025-07-01 12:47] LABS: Add Urine Microscopic? YES; Appearance Urine Clear (Clear); Glucose Urine UA Negative (Negative); Leukocyte Esterase Ur 1+ LEU/UL (Negative); Nitrate Urine Negative (Negative); Non Pathogenic Casts 0-2; Specific Grav Ur 1.013 (1.001-1.035)
--- NOTE | 2025-07-01 13:12 | WPDURCON ---
Assessment and Plan Assessment and plan (1) Flank pain: Code(s): R10.9 - Unspecified abdominal pain Status: Acute (2) Renal calculus: Code(s): N20.0 - Calculus of kidney Status: Acute (3) Hematuria: Qualifiers: Hematuria type: unspecified type Qualified Code(s): R31.9 - Hematuria, unspecified Code(s): R31.9 - Hematuria, unspecified Status: Acute Plan -CT AP reveals Bilateral nephrolithiasis with mild stranding findings right renal pelvis where there is a 1.1 cm stone consistent with pyelitis which could be either septic or aseptic. Correlate with urinalysis. -Plan for cystoscopy, right ureteroscopy with stent placement. We are trying to add on for today but this may happen tomorrow instead. -admit to hospitalist for management. -wbc 10.3 -cr 0.67 -keep npo until we determine time of surgery. -discussed risks of surgery including infection, bleeding, damage to surrounding structures, and . Discussed procedure and management of stent after discharge. discussed symptoms of stent. patient agreeable to surgery. Urology Consult Note HPI Date Seen: 07/01/25 Primary Care Provider: Heather Martinez, ANDREW Consult Narrative Narrative: Patient is a 65-year-old female presents emergency department chief complaint of right flank pain. Patient reports that the last 2 weeks she has been having discomfort in the right flank area patient states that symptoms are not improved by anything reports she had an outpatient CT scan that showed that she had a large kidney stone with irritation in the renal pelvis patient states that decided to come to the emergency department today as her symptoms were not improving and she found out that she had a kidney stone Review of Systems Review of Systems: All systems reviewed & are unremarkable except as noted in HPI and below PMFSH Past Medical History Medical History Chronic obstructive pulmonary disease Renal calculus Tobacco abuse Type 2 diabetes mellitus Transient ischemic attack Antiplatelet or antithrombotic long-term use History of TIA (transient ischemic attack) Reported history of multiple TIAs over 10 years ago and subsequently was started on Plavix Irritable bowel Coronary artery disease Surgical History Surgical History Hx of exploratory laparotomy Exploratory laparotomy with abdominal adhesiolysis performed 01/22/23 History of total abdominal hysterectomy and bilateral salpingo-oophorectomy History of cholecystectomy Open cholecystectomy Family History Family History Mother Hypertension Sibling Breast cancer Diabetes mellitus Hypertension Social History Social History Social History: Surrogate medical decision maker: Russell Mueller, friend. Code status: Full code. 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 Gender identity (if verbalized by the patient): Female Sexual Orientation (if Verbalized by the Patient): Lesbian, Vázquez, or Homosexual Spiritual care concerns: No Agree to blood products: Yes Meds Home Medications and Allergies Home Medications ?Medication ?Instructions ?Recorded ?Confirmed ?Type clopidogrel 75 mg tablet See Rx Instructions .Route 11/22/24 06/30/25 Rx .COMPLEX #90 tabs glimepiride 2 mg tablet See Rx Instructions .Route 11/22/24 06/30/25 Rx .COMPLEX #90 tabs lisinopril 5 mg tablet See Rx Instructions .Route 11/22/24 06/30/25 Rx .COMPLEX #90 tabs montelukast 10 mg tablet See Rx Instructions .Route 11/22/24 06/30/25 Rx .COMPLEX #90 tabs rosuvastatin 20 mg tablet See Rx Instructions .Route 11/22/24 06/30/25 Rx .COMPLEX #90 tabs valacyclovir 500 mg tablet See Rx Instructions .Route 11/29/24 06/30/25 Rx .COMPLEX #90 tabs famotidine 20 mg tablet 20 mg PO BID #180 tabs 02/25/25 06/30/25 Rx metformin 1,000 mg tablet 1,000 mg PO BID #180 tabs 05/22/25 09/04/25 Rx blood sugar diagnostic (Blood #100 ea 06/15/25 06/30/25 Rx Glucose Test strips) blood-glucose meter #1 ea 06/15/25 06/30/25 Rx semaglutide 0.25 mg or 0.5 mg (2 0.25 mg (0.368 mL) subcut WEEKLY 06/20/25 06/30/25 Rx mg/3 mL) subcutaneous pen injector #3 mL (Ozempic) Allergies Allergy/AdvReac Type Severity Reaction Status Date / Time hydrocodone AdvReac Severe NAUSEA AND Verified 07/01/25 11:39 VOMITING Vital Signs Vital Signs - 24 hr 07/01/25 11:35 07/01/25 12:16 Temperature 98.1 F Pulse Rate 99 87 Respiratory Rate 16 16 Blood Pressure 110/99 H 103/59 L Pulse Oximetry 98 97 Oxygen Delivery Room Air Exam Const: General: no acute distress and uncomfortable Eyes: General: appearance normal, both eyes and all related structures Resp: Effort & Inspection: normal respiratory effort Skin: General skin exam: normal color Neuro: Speech: normal speech Psych: Speech and movement: Normal speech and movement present Results Labs 07/01/25 12:11 07/01/25 12:11 Labs: Short CBC 07/01/25 Range/Units 12:11 WBC 10.3 H (4.5-10.0) K/mm3 Hgb 13.7 (12.0-15.0) g/dL Hct 41.0 (37.0-47.0) % Plt Count 268 (150-375) k/mm3 BMP 07/01/25 12:11 Sodium 135 L Potassium 4.1 Chloride 101 Carbon Dioxide 23 BUN 10 Creatinine 0.67 L Glucose 187 H Calcium 9.7 Liver Function 07/01/25 Range/Units 12:11 Total Bilirubin 0.5 (0.2-1.3) mg/dL AST 32 (14-36) U/L ALT 23 (6-35) U/L Alkaline Phosphatase 80 (38-126) U/L Albumin 4.4 (3.5-5.1) g/dL Urine 07/01/25 Range/Units 12:11 Urine Color Yellow (Yellow) Urine Appearance Clear (Clear) Urine pH 5.5 (5.0-9.0) Ur Specific [place] 1.013 (1.001-1.035) Urine Protein 2+ H (Negative) mg/dL Urine Glucose (UA) Negative (Negative) mg/dL
--- NOTE | 2025-07-01 13:32 | WPDHPUPDATE1 ---
History and Physical Update Update Date/Time: 07/01/25 13:32 History and Physical has been reviewed, including an updated exam of the patient. There are NO changes in the patient's condition. Risks, benefits, and alternatives have been discussed and questions answered. Patient agrees to proceed with procedure. Proceed with cystoscopy , right retrograde, right stent placement
--- NOTE | 2025-07-01 13:48 | PM.IMHP ---
H&P: HPI History of Present Illness Date/Time: 07/01/25 13:48 Chief Complaint: Flank Pain Narrative: 65 y/o F with PMH of COPD, kidney stones, DM2, TIA, airport bowel, and CAD presents here with flank pain and known kidney stone. The patient reports difficulty urinating x1 week which prompted her to to seek care with her PCP yesterday on 06/30. She reported at that time that the pain felt similar to her previous kidney stones. She had a CT scan completed which showed bilateral nephrolithiasis, a 1.1 cm stone in the right renal pelvis, and stranding consistent with pyelitis. She was then contacted prior PCP and directed to the emergency department for further evaluation and care. Today she is reporting urinary urgency and right flank pain. She denies nausea, vomiting, fever, chills, body aches, or diarrhea (that is different than her usual due to her IBS). Initial VS at presentation: 98.1? F, HR 99, R 16, 110/99, and 98% on RA. ED workup showed: WBC 10.3, no anemia, no significant electrolyte derangements, creatinine 0.67, glucose 187, and UA suggestive of UTI with few epithelial cells. Abdominal XR showed no acute process. CT of the abdomen/pelvis from 06/30 showed bilateral nephrolithiasis with mild stranding findings right renal pelvis where there is a 1.1 cm stone consistent with pyelitis which could be either septic or aseptic. Review of Systems Review of Systems: All systems reviewed & are unremarkable except as noted in HPI and below [facility] Past Medical History Medical History Chronic obstructive pulmonary disease Renal calculus Tobacco abuse Type 2 diabetes mellitus Transient ischemic attack Antiplatelet or antithrombotic long-term use History of TIA (transient ischemic attack) Reported history of multiple TIAs over 10 years ago and subsequently was started on Plavix Irritable bowel Coronary artery disease Surgical History Surgical History Hx of exploratory laparotomy Exploratory laparotomy with abdominal adhesiolysis performed 01/22/23 History of total abdominal hysterectomy and bilateral salpingo-oophorectomy History of cholecystectomy Open cholecystectomy Family History Family History Mother Hypertension Sibling Breast cancer Diabetes mellitus Hypertension Social History Social History Social History: Surrogate medical decision maker: Russell Mueller, friend. Code status: Full code. 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 Gender identity (if verbalized by the patient): Female Sexual Orientation (if Verbalized by the Patient): Lesbian, Vázquez, or Homosexual Spiritual care concerns: No Agree to blood products: Yes Meds Home Medications and Allergies Home Medications ?Medication ?Instructions ?Recorded ?Confirmed ?Type clopidogrel 75 mg tablet See Rx Instructions .Route 11/22/24 07/01/25 Rx .COMPLEX #90 tabs glimepiride 2 mg tablet See Rx Instructions .Route 11/22/24 07/01/25 Rx .COMPLEX #90 tabs lisinopril 5 mg tablet See Rx Instructions .Route 11/22/24 07/01/25 Rx .COMPLEX #90 tabs montelukast 10 mg tablet See Rx Instructions .Route 11/22/24 07/01/25 Rx .COMPLEX #90 tabs rosuvastatin 20 mg tablet See Rx Instructions .Route 11/22/24 07/01/25 Rx .COMPLEX #90 tabs valacyclovir 500 mg tablet See Rx Instructions .Route 11/29/24 07/01/25 Rx .COMPLEX #90 tabs famotidine 20 mg tablet 20 mg PO BID #180 tabs 02/25/25 07/01/25 Rx metformin 1,000 mg tablet 1,000 mg PO BID #180 tabs 03/17/25 07/01/25 Rx blood sugar diagnostic (Blood #100 ea 06/15/25 07/01/25 Rx Glucose Test strips) blood-glucose meter #1 ea 06/15/25 07/01/25 Rx semaglutide 0.25 mg or 0.5 mg (2 0.25 mg (0.368 mL) subcut WEEKLY 06/20/25 07/01/25 Rx mg/3 mL) subcutaneous pen injector #3 mL (Ozempic) Allergies Allergy/AdvReac Type Severity Reaction Status Date / Time hydrocodone AdvReac Severe NAUSEA AND Verified 07/01/25 16:57 VOMITING Vital Signs Vital Signs - 24 hr 07/01/25 11:35 07/01/25 12:16 07/01/25 13:32 Temperature 98.1 F Pulse Rate 99 87 80 Respiratory Rate 16 16 16 Blood Pressure 110/99 H 103/59 L 117/66 Pulse Oximetry 98 97 96 Oxygen Delivery Room Air Exam Const: General: comfortable and no acute distress Other: , female, nontoxic appearance HENMT: Face/Nose/Sinus: Normal nares present Mouth: Yes moist mucous membranes Eyes: General: appearance normal, both eyes and all related structures Sclera: sclerae normal Pupils: Equal, round and reactive pupils present EOM: EOMs intact bilaterally Resp: Effort & Inspection: normal respiratory effort Auscultation: clear to auscultation bilaterally Cardio: Rate: regular rate Rhythm: regular rhythm Other: S1-S2 present without murmur, rub, ectopy GI: Other: Abdomen soft, nondistended, nontender. Normoactive bowel sounds in all quadrants. Skin: General skin exam: normal color and no rashes or lesions noted Wounds: no wounds Neuro: Speech: normal speech Motor exam (neuro): 5/5 motor strength present throughout Sensory Exam: normal sensation Other: A&O x4 Extrem: General: normal to inspection Psych: Mental Status: mental status grossly normal Affect: normal affect Other: Good insight and judgment, very pleasant H&P: Results Labs Labs: Short CBC 07/01/25 Range/Units 12:11 WBC 10.3 H (4.5-10.0) K/mm3 Hgb 13.7 (12.0-15.0) g/dL Hct 41.0 (37.0-47.0) % Plt Count 268 (150-375) k/mm3 BMP 07/01/25 12:11 Sodium 135 L Potassium 4.1 Chloride 101 Carbon Dioxide 23 BUN 10 Creatinine 0.67 L Glucose 187 H Calcium 9.7 Liver Function 07/01/25 Range/Units 12:11 Total Bilirubin 0.5 (0.2-1.3) mg/dL AST 32 (14-36) U/L ALT 23 (6-35) U/L Alkaline Phosphatase 80 (38-126) U/L Albumin 4.4 (3.5-5.1) g/dL Urine 07/01/25 Range/Units 12:11 Urine Color Yellow (Yellow) Urine Appearance Clear (Clear) Urine pH 5.5 (5.0-9.0) Ur Specific [place] 1.013 (1.001-1.035) Urine Protein 2+ H (Negative) mg/dL Urine Glucose (UA) Negative (Negative) mg/dL Assessment and Plan Assessment and plan (1) Renal calculus: Code(s): N20.0 - Calculus of kidney Status: Acute Assessment and Plan: - CT abdomen/pelvis, 06/30:Bilateral nephrolithiasis with mild stranding findings right renal pelvis where there is a 1.1 cm stone consistent with pyelitis which could be either septic or aseptic. Correlate with urinalysis. - UA showing indicators of infection, see below - urology consulted. Plan for cystoscopy and right stent placement this afternoon on 07/01 (attempting to add on, may have to be tomorrow on 07/02). - trend renal function and WBC - IV fluids: (2) UTI (urinary tract infection): Qualifiers: Hematuria presence: without hematuria Urinary tract infection type: acute cystitis Qualified Code(s): N30.00 - Acute cystitis without hematuria Code(s): N39.0 - Urinary tract infection, site not specified Status: Acute Assessment and Plan: - UA: 2+ protein, 3+ blood, 1+ leuk esterase, greater than 100 RBC, 21-50 WBC, few epithelial cells and no bacteria. - UC pending - no previous micro available for review - started on Ceftriaxone on 07/01 (3) Type 2 diabetes mellitus: Qualifiers: Diabetes mellitus complication status: without complication Diabetes mellitus long haul truck driver insulin use: without assisted use Qualified Code(s): E11.9 - Type 2 diabetes mellitus without complications Code(s): E11.9 - Type 2 diabetes mellitus without complications Status: Chronic Assessment and Plan: - hypoglycemia protocol - POC blood glucose ACHS - home medication: Hold metformin in case of need for contrast. Continue glimepiride pre - correct regimen ordered - moderate dose TIDWM based off BMI - A1C 8.4% on 05/25/2025 (4) Chronic obstructive pulmonary disease: Qualifiers: COPD type: unspecified COPD Qualified Code(s): J44.9 - Chronic obstructive pulmonary disease, unspecified Code(s): J44.9 - Chronic obstructive pulmonary disease, unspecified Status: Chronic Assessment and Plan: - no current evidence of exacerbation - continue home medications/inhalers Plan Diet: NPO until post procedure -> regular GI Prophylaxis: N/a DVT Prophylaxis: SCDs IV fluids: 1L -> 100 mL/hour x1 L Lines/Tubes: Peripheral IV Code Status: Full code Quality VTE Prophylaxis VTE prophylaxis: mechanical ordered Hospitalist MIPS Advance Care Plan I have confirmed that the patient's Advanced Care Plan is present, code status is documented, or surrogate decision maker is listed in patient medical record.: Yes Medication Reconciliation I have utilized all available resources to obtain, update and review the patients current medications (includes all prescriptions, OTC, herbals, cannabis, and nutritional supplements).: Yes
[2025-07-01] MEDS: LACTATED RINGERS 1,000 ML 30 ML IV CONT (14:00)
[2025-07-01] MEDS: cefTRIAXone 1 GM in SODIUM CHLORIDE 0.9% IV 50 ML 100 ML IVPB (14:00)
--- NOTE | 2025-07-01 14:22 | WPDANESEPPF ---
Anes - Initial Pre Proc Eval Procedure: Operation Date: 07/01/25 15:00 Proposed Procedures p Cystoscopy, Right Retrograde Pyelogram, Right Stent Placement - Waldo Luis MD Date/Time: 07/01/25 14:22 Surgeon: Waldo Luis MD Pre Op Diagnosis: hx of kidney stones Patient Data Age: 65 Gender: F Height: 1.52 m Weight: 61.3 kg Last Vital Signs Temp 36.7 C 07/01/25 11:35 Pulse 80 07/01/25 13:32 Resp 16 07/01/25 13:32 BP 117/66 07/01/25 13:32 Pulse Ox 96 07/01/25 13:32 O2 Del Method Room Air 07/01/25 11:35 Allergies Allergy/AdvReac Type Severity Reaction Status Date / Time hydrocodone AdvReac Severe NAUSEA AND Verified 07/01/25 11:39 VOMITING Home Medications ?Medication ?Instructions ?Recorded ?Confirmed ?Type clopidogrel 75 mg tablet See Rx Instructions .Route 11/22/24 06/30/25 Rx .COMPLEX #90 tabs glimepiride 2 mg tablet See Rx Instructions .Route 11/22/24 06/30/25 Rx .COMPLEX #90 tabs lisinopril 5 mg tablet See Rx Instructions .Route 11/22/24 06/30/25 Rx .COMPLEX #90 tabs montelukast 10 mg tablet See Rx Instructions .Route 11/22/24 06/30/25 Rx .COMPLEX #90 tabs rosuvastatin 20 mg tablet See Rx Instructions .Route 11/22/24 06/30/25 Rx .COMPLEX #90 tabs valacyclovir 500 mg tablet See Rx Instructions .Route 11/29/24 06/30/25 Rx .COMPLEX #90 tabs famotidine 20 mg tablet 20 mg PO BID #180 tabs 02/25/25 06/30/25 Rx metformin 1,000 mg tablet 1,000 mg PO BID #180 tabs 03/17/25 06/30/25 Rx blood sugar diagnostic (Blood #100 ea 06/15/25 06/30/25 Rx Glucose Test strips) blood-glucose meter #1 ea 06/15/25 06/30/25 Rx semaglutide 0.25 mg or 0.5 mg (2 0.25 mg (0.368 mL) subcut WEEKLY 06/20/25 06/30/25 Rx mg/3 mL) subcutaneous pen injector #3 mL (Ozempic) Laboratory Tests 07/01/25 12:11 WBC 10.3 H K/mm3 (4.5-10.0) RBC 4.27 M/mm3 (4.2-5.4) Hgb 13.7 g/dL (12.0-15.0) Hct 41.0 % (37.0-47.0) MCV 96.0 fl (80-100) MCH 32.1 pg (26-34) MCHC 33.4 g/dl (32-36) RDW 13.2 % (11.5-14.5) Plt Count 268 k/mm3 (150-375) MPV 9.2 fl (7.4-10.4) Immature Gran % (Auto) 0.2 % (0-0.5) Neut % (Auto) 70.4 % (45.5-73.1) Lymph % (Auto) 18.7 % (18.3-44.2) [place] % (Auto) 8.5 % (2.6-8.5) Eos % (Auto) 2.0 % (0-4.4) Baso % (Auto) 0.2 % (0.2-1.2) Lymph # (Auto) 1.93 K/mm3 (0.9-3.2) [place] # (Auto) 0.9 H K/mm3 (0.1-0.6) Eos # (Auto) 0.2 K/mm3 (0-0.3) Baso # (Auto) 0.0 K/mm3 (0.0-0.1) Abs Immat Gran (auto) 0.02 K/mm3 (0.00-0.031) Absolute Neuts (auto) 7.3 H K/mm3 (1.3-6.7) Absolute Nucleated RBC 0.000 K/mm3 (0.0-0.012) Nucleated RBC % 0.0 % (0.0-0.2) Sodium 135 L mmol/L (137-145) Potassium 4.1 mmol/L (3.4-5.0) Chloride 101 mmol/L (98-107) Carbon Dioxide 23 mmol/L (22-30) Anion Gap 11 mmol/L (4-12) BUN 10 mg/dL (7-17) Creatinine 0.67 L mg/dL (0.7-1.0) Estim Creat Clear Calc 60 ml/min Estimated GFR > 60 (59 - ) Glucose 187 H mg/dL (65-110) Calcium 9.7 mg/dL (8.4-10.2) Total Bilirubin 0.5 mg/dL (0.2-1.3) AST 32 U/L (14-36) ALT 23 U/L (6-35) Alkaline Phosphatase 80 U/L (38-126) Total Protein 7.5 g/dL (6.3-8.2) Albumin 4.4 g/dL (3.5-5.1) Urine Color Yellow (Yellow) Urine Appearance Clear (Clear) Urine pH 5.5 (5.0-9.0) Ur Specific [place] 1.013 (1.001-1.035) Urine Protein 2+ H mg/dL (Negative) Urine Glucose (UA) Negative mg/dL (Negative) Urine Ketones Negative mg/dL (Negative) Ur Blood (Man) 3+ H (Negative) Urine Nitrate Negative (Negative) Urine Bilirubin Negative (Negative) Urine Urobilinogen 0.2 mg/dL (<2.0) Leukocyte Esterase Rfl 1+ H KARISSA/UL (Negative) Urine RBC >100 H /hpf (0-2) Urine WBC 21-50 H /hpf (0-3) Ur Squamous Epith Cells Few /hpf (Few) Urine Bacteria None seen /hpf Urine Casts 0-2 Patient hx anesthesia problems: none Family hx anesthesia problems: none Results Review: All pre-operative results and documents have been reviewed as part of the pre-operative evaluation. [facility] Past Medical History Medical History Chronic obstructive pulmonary disease Renal calculus Tobacco abuse Type 2 diabetes mellitus Transient ischemic attack Antiplatelet or antithrombotic long-term use History of TIA (transient ischemic attack) Reported history of multiple TIAs over 10 years ago and subsequently was started on Plavix Irritable bowel Coronary artery disease Surgical History Surgical History Hx of exploratory laparotomy Exploratory laparotomy with abdominal adhesiolysis performed 01/22/23 History of total abdominal hysterectomy and bilateral salpingo-oophorectomy History of cholecystectomy Open cholecystectomy Family History Family History Mother Hypertension Sibling Breast cancer Diabetes mellitus Hypertension Social History Social History Social History: Surrogate medical decision maker: Russell Mueller, friend. Code status: Full code. 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 Gender identity (if verbalized by the patient): Female Sexual Orientation (if Verbalized by the Patient): Lesbian, Vázquez, or Homosexual Spiritual care concerns: No Agree to blood products: Yes Anes - Eval Final PreProcedure Day of Procedure 07/01/25 14:22 Patient weight: overweight Heart: regular rate and rhythm Lungs: clear to auscultation Airway: Mallampati scale class II Neurological: alert and oriented Last oral intake: >/= 8 hours ASA classification: III Emergent: no Anesthetic plan: proceed Anesthesia type and monitoring: general LMA and standard monitoring Results Review: All pre-operative results and documents have been reviewed as part of the pre-operative evaluation. Informed Consent: The patient's anesthetic plan and its attendant risks and benefits were discussed with the patient/family/POA. Questions were solicited and answers provided to the satisfaction of the patient/family/POA.
[2025-07-01] MEDS: LIDOCAINE 2% GEL UROJET 10 ML PKG MUCOUS MEM (15:02)
--- NOTE | 2025-07-01 15:11 | W.PM.PROC2 ---
Procedure Note - Detailed Date of Procedure 07/01/25 Pre-op Diagnosis 1.1 cm right UPJ calculus with colic Post-op Diagnosis Same Procedure Performed Cystoscopy, right retrograde, right ureteral stent placement Surgeon Waldo Luis MD Anesthesia General Description of Procedure Patient was taken to the operative suite correctly identified. Once anesthesia was obtained she was placed in dorsal lithotomy position and prepped draped usual sterile fashion. Twenty-two [place] scope was inserted the bladder. There were no tumors noted the right ureteral orifice was cannulated with a wire. Ureteral catheter was inserted and a pyelogram was performed. She has somewhat of a lower lying kidney. There was no evidence of hydronephrosis. At this point time a 4.8 [place] contour stent was placed with the proximal in the renal pelvis the distal in the bladder. The stent is a little bit long and little redundant in the bladder. Nonetheless it is coiled in the renal pelvis. 2% viscous lidocaine was then inserted into the urethra patient is taken recovery stable condition. She does well overnight she could be discharged home from urology standpoint will recommend a KUB in the morning to see if the stone is visible. Further recommendations will be made pending that study. She will either require a lithotripsy or ureteroscopy with laser. This completes dictation. Please send a copy of op note to my office. Estimated Blood Loss 0 Drains Yes Packing No Pathology None sent Complications No immediate complications Condition Stable Disposition PACU
--- NOTE | 2025-07-01 16:46 | ADMGEN ---
This patient, Annette Camacho, was admitted to [facility] Surg Room 311-01. Patient/family oriented to hospital policies and general routines including ID bracelet, bed and alarms, visiting hours, pain management, procedures, bathroom and other care routines, personal items, smoking policy, room service/diet, and visiting hours. Information on how to activate the Rapid Response Team has been discussed. Patient/Family are encouraged to report perceived risks to care and to ask questions if they do not understand what they are told or what they should do. Report from Yana in PACU.
[2025-07-01] MEDS: KETOROLAC 30 MG/ML VIAL (*BKC) IV PUSH (19:48)
[2025-07-01] MEDS: LACTATED RINGERS 1,000 ML 100 ML IV CONT (19:49)
[2025-07-01] MEDS: MONTELUKAST SODIUM 10 MG TABLET PO (21:47)
[2025-07-01] MEDS: ROSUVASTATIN 20 MG TABLET PO (21:47)
[2025-07-02 06:00] VITALS: BP 114/57; PULSE 77; RESP 20; TEMP 36; O2SAT 98
[2025-07-02 06:21] LABS: Hematocrit 36.1 % (37.0-47.0); Hemoglobin 11.8 g/dL (12.0-15.0); Immature Granulocyte Percent A 0.4 % (0-0.5); Lymphocytes Absolute Auto 1.83 K/mm3 (0.9-3.2); Mean Corpuscular HGB Conc 32.7 g/dl (32-36); Mean Corpuscular Hemoglobin 31.7 pg (26-34); Mean Corpuscular Volume 97.0 fl (80-100); Nucleated Red Blood Cells Absolute Auto 0.000 K/mm3 (0.0-0.012); Nucleated Red Blood Cells Perc 0.0 % (0.0-0.2); Platelet Count Result 239 k/mm3 (150-375); Red Blood Count 3.72 M/mm3 (4.2-5.4); White Blood Count 9.4 K/mm3 (4.5-10.0)
[2025-07-02 06:38] LABS: Alanine Aminotransferase 18 U/L (6-35); Albumin Level 3.6 g/dL (3.5-5.1); Alkaline Phosphatase 64 U/L (38-126); Anion Gap 6 mmol/L (4-12); Aspartate Amino Transferase 26 U/L (14-36); Bilirubin,Total 0.3 mg/dL (0.2-1.3); Blood Urea Nitrogen 10 mg/dL (7-17); Calcium 9.1 mg/dL (8.4-10.2); Carbon Dioxide 23 mmol/L (22-30); Chloride 105 mmol/L (98-107); Estimated CRCL calculation 69 ml/min; Estimated Glomerular Filt Rate > 60; Glucose 169 mg/dL (65-110); Potassium 4.2 mmol/L (3.4-5.0); Sodium 134 mmol/L (137-145); Total Protein 6.2 g/dL (6.3-8.2)
[2025-07-02] MEDS: FAMOTIDINE 20 MG TABLET PO ×2 (09:16→21:35)
[2025-07-02] MEDS: GLIMEPIRIDE 2 MG TABLET PO (09:16)
--- NOTE | 2025-07-02 12:36 | PM.IMPN ---
Progress Note: A&P Assessment and Plan (1) Renal calculus: Code(s): N20.0 - Calculus of kidney Status: Acute Assessment and Plan: - CT abdomen/pelvis, 06/30:Bilateral nephrolithiasis with mild stranding findings right renal pelvis where there is a 1.1 cm stone consistent with pyelitis which could be either septic or aseptic. Correlate with urinalysis. - UA showing indicators of infection, see below s/p Cystoscopy with right ureteral stent placement monitor - IV fluids: (2) UTI (urinary tract infection): Qualifiers: Hematuria presence: without hematuria Urinary tract infection type: acute cystitis Qualified Code(s): N30.00 - Acute cystitis without hematuria Code(s): N39.0 - Urinary tract infection, site not specified Status: Acute Assessment and Plan: Pyelitis CT AP reviewed - UA: 2+ protein, 3+ blood, 1+ leuk esterase, greater than 100 RBC, 21-50 WBC, few epithelial cells and no bacteria. - UC pending - no previous micro available for review on Ceftriaxone on 07/01 (3) Type 2 diabetes mellitus: Qualifiers: Diabetes mellitus ocean transportation intermediary insulin use: without ocean transportation intermediary use Diabetes mellitus complication status: without complication Qualified Code(s): E11.9 - Type 2 diabetes mellitus without complications Code(s): E11.9 - Type 2 diabetes mellitus without complications Status: Chronic Assessment and Plan: - hypoglycemia protocol - POC blood glucose ACHS - home medication: Hold metformin in case of need for contrast. Continue glimepiride pre - correct regimen ordered - moderate dose TIDWM based off BMI - A1C 8.4% on 05/25/2025 (4) Chronic obstructive pulmonary disease: Qualifiers: COPD type: unspecified COPD Qualified Code(s): J44.9 - Chronic obstructive pulmonary disease, unspecified Code(s): J44.9 - Chronic obstructive pulmonary disease, unspecified Status: Chronic Assessment and Plan: - no current evidence of exacerbation - continue home medications/inhalers Plan Hematuria likley from stone and recent cystoscopy urology informed monitor Diet: regular DVT Prophylaxis: SCDs, No AC due to hematuria Code Status: Full code Subjective Date/time seen: 07/02/25 12:36 Interval history: Comfortable at bedside Review of Systems Review of Systems: All systems reviewed & are unremarkable except as noted in HPI and below Exam Const: General: comfortable and no acute distress Other: , female, nontoxic appearance HENMT: Face/Nose/Sinus: Normal nares present Mouth: Yes moist mucous membranes Eyes: General: appearance normal, both eyes and all related structures Sclera: sclerae normal Pupils: Equal, round and reactive pupils present EOM: EOMs intact bilaterally Resp: Effort & Inspection: normal respiratory effort Auscultation: clear to auscultation bilaterally Cardio: Rate: regular rate Rhythm: regular rhythm Other: S1-S2 present without murmur, rub, ectopy GI: Other: Abdomen soft, nondistended, nontender. Normoactive bowel sounds in all quadrants. Skin: General skin exam: normal color and no rashes or lesions noted Wounds: no wounds Neuro: Cranial nerves: Yes Equal, round and reactive pupils present Speech: normal speech Motor exam (neuro): 5/5 motor strength present throughout Sensory Exam: normal sensation Other: A&O x4 Extrem: General: normal to inspection Psych: Mental Status: mental status grossly normal Affect: normal affect Other: Good insight and judgment, very pleasant Objective Data Vital Signs Vital Signs: Vital Signs - 24 hr 07/01/25 13:32 07/01/25 14:38 07/01/25 15:20 Temperature 97.2 F L 97 F L Pulse Rate 80 82 87 Respiratory Rate 16 16 24 H Blood Pressure 117/66 91/42 L 106/50 L Pulse Oximetry 96 100 100 Oxygen Delivery Room Air Simple Face Mask Oxygen Flow Rate 8 07/01/25 15:35 07/01/25 15:50 07/01/25 16:05 Temperature Pulse Rate 81 82 81 Respiratory Rate 18 18 18 Blood Pressure 101/54 L 99/51 L 103/52 L Pulse Oximetry 98 96 97 Oxygen Delivery Room Air Room Air Room Air Oxygen Flow Rate 07/01/25 17:21 07/01/25 20:00 07/01/25 21:27 Temperature 96.9 F L 96.8 F L Pulse Rate 83 83 83 Respiratory Rate 18 18 20 Blood Pressure 123/57 L 115/60 Pulse Oximetry 95 95 96 Oxygen Delivery Room Air Oxygen Flow Rate 07/02/25 06:00 Temperature 96.8 F L Pulse Rate 77 Respiratory Rate 20 Blood Pressure 114/57 L Pulse Oximetry 98 Oxygen Delivery Oxygen Flow Rate Intake/Output Intake/Output: Intake & Output 09/0306/30/25 07/01/25 07/02/25 23:59 23:59 23:59 23:59 Intake Total 320 590 Output Total 300 700 Balance 20 -110 Meds/Results Medications: Active Medications Generic Name Dose Route Start Last Admin Trade Name Freq PRN Reason Stop Dose Admin Acetaminophen 650 mg 07/01/25 19:16 Acetaminophen 325 Mg Tablet PO Q4H PRN Mild Pain (1-3) or Fever Clopidogrel Bisulfate 75 mg 07/02/25 09:00 07/02/25 09:32 Clopidogrel Bisulfate 75 Mg Tablet PO Not Given DAILY SUSHMA Dextrose 12.5 gm 07/01/25 19:22 Dextrose 50% 25 Gm/50 Ml Syringe IV PUSH PRN PRN Hypoglycemia Protocol Docusate Sodium 100 mg 07/01/25 19:24 Docusate Sodium 100 Mg Capsule PO Q12H PRN Constipation Famotidine 20 mg 07/02/25 09:00 07/02/25 09:16 Famotidine 20 Mg Tablet PO 20 mg Q12HR SUSHMA Administration Glimepiride 2 mg 07/02/25 09:00 07/02/25 09:16 Glimepiride 2 Mg Tablet PO 2 mg DAILY SUSHMA Administration Glucagon 1 mg 07/01/25 19:22 Glucagon For Inj 1 Mg Vial IM PRN PRN Hypoglycemia Protocol Glucose 15 gm 07/01/25 19:22 Glucose Oral Gel 15 Gm Of Glucse In 37.5 Gm Tube PO PRN PRN Hypoglycemia Protocol Dextrose 1,000 mls @ 100 mls/hr 07/01/25 19:22 Dextrose 5% 1,000 Ml IVPB PRN PRN Hypoglycemia Protocol Ceftriaxone Sodium 1 gm/ 50 mls @ 100 mls/hr 07/02/25 14:00 Sodium Chloride IVPB Q24H [facility] Ibuprofen 600 mg 07/01/25 19:16 Ibuprofen 600 Mg Tablet PO Q6H PRN Pain Rated 4-6 Insulin Aspart 3 - 6 units 07/02/25 08:00 07/02/25 07:36 Insulin Aspart (*Bkc) 100 Units/Ml SUB-Q Not Given TIDWM [facility] Protocol Lisinopril 5 mg 07/02/25 09:00 07/02/25 09:16 Lisinopril 5 Mg Tablet PO 5 mg DAILY SUSHMA Administration Montelukast Sodium 10 mg 07/01/25 21:30 07/01/25 21:47 Montelukast Sodium 10 Mg Tablet PO 10 mg HS SUSHMA Administration Ondansetron HCl 4 mg 07/01/25 19:23 Ondansetron Inj 4 Mg/2 Ml Vial IV PUSH Q6H PRN Nausea And Vomiting Rosuvastatin Calcium 20 mg 07/01/25 21:25 07/01/25 21:47 Rosuvastatin 20 Mg Tablet PO 20 mg HS SUSHMA Administration Valacyclovir HCl 500 mg 07/01/25 21:25 07/01/25 21:47 Valacyclovir Hcl 500 Mg Tablet PO 500 mg HS SUSHMA Administration Radiology Results: ITS Impressions Abdomen X-Ray 07/01/25 12:54 IMPRESSION: No acute process. Retrograde Pyelogram 07/01/25 15:18 IMPRESSION: 1. Right internal ureteral stent placement. Please refer to real-time procedural findings for details. Labs Labs: Laboratory Results - last 24 hr 07/01/25 07/01/25 07/01/25 12:11 14:41 15:39 WBC RBC Hgb Hct MCV MCH MCHC RDW Plt Count MPV Immature Gran % (Auto) Neut % (Auto) Lymph % (Auto) [place] % (Auto) Eos % (Auto) Baso % (Auto) Lymph # (Auto) [place] # (Auto) Eos # (Auto) Baso # (Auto) Abs Immat Gran (auto) Absolute Neuts (auto) Absolute Nucleated RBC Nucleated RBC % Sodium 135 L Potassium 4.1 Chloride 101 Carbon Dioxide 23 Anion Gap 11 BUN 10 Creatinine 0.67 L Estim Creat Clear Calc 60 Estimated GFR > 60 Glucose 187 H POC Capillary Glucose 150 H 124 H Calcium 9.7 Total Bilirubin 0.5 AST 32 ALT 23 Alkaline Phosphatase 80 Total Protein 7.5 Albumin 4.4 Urine Color Yellow Urine Appearance Clear Urine pH 5.5 Ur Specific [place] 1.013 Urine Protein 2+ H Urine Glucose (UA) Negative Urine Ketones Negative Ur Blood (Man) 3+ H Urine Nitrate Negative Urine Bilirubin Negative Urine Urobilinogen 0.2 Leukocyte Esterase Rfl 1+ H Urine RBC >100 H Urine WBC 21-50 H Ur Squamous Epith Cells Few Urine Bacteria None seen Urine Casts 0-2 07/01/25 07/01/25 07/02/25 17:12 19:39 05:10 WBC 9.4 RBC 3.72 L Hgb 11.8 L Hct 36.1 L MCV 97.0 MCH 31.7 MCHC 32.7 RDW 12.9 Plt Count 239 MPV 9.5 Immature Gran % (Auto) 0.4 Neut % (Auto) 72.0 Lymph % (Auto) 19.4 [place] % (Auto) 7.9 Eos % (Auto) 0.2 Baso % (Auto) 0.1 L Lymph # (Auto) 1.83 [place] # (Auto) 0.8 H Eos # (Auto) 0.0 Baso # (Auto) 0.0 Abs Immat Gran (auto) 0.04 H Absolute Neuts (auto) 6.8 H Absolute Nucleated RBC 0.000 Nucleated RBC % 0.0 Sodium 134 L Potassium 4.2 Chloride 105 Carbon Dioxide 23 Anion Gap 6 BUN 10 Creatinine 0.57 L Estim Creat Clear Calc 69 Estimated GFR > 60 Glucose 169 H POC Capillary Glucose 153 H 313 H Calcium 9.1 Total Bilirubin 0.3 AST 26 ALT 18 Alkaline Phosphatase 64 Total Protein 6.2 L Albumin 3.6 Urine Color Urine Appearance Urine pH Ur Specific [place] Urine Protein Urine Glucose (UA) Urine Ketones Ur Blood (Man) Urine Nitrate Urine Bilirubin Urine Urobilinogen Leukocyte Esterase Rfl Urine RBC Urine WBC Ur Squamous Epith Cells Urine Bacteria Urine Casts 07/02/25 07/02/25 07:36 11:38 WBC RBC Hgb Hct MCV MCH MCHC RDW Plt Count MPV Immature Gran % (Auto) Neut % (Auto) Lymph % (Auto) [place] % (Auto) Eos % (Auto) Baso % (Auto) Lymph # (Auto) [place] # (Auto) Eos # (Auto) Baso # (Auto) Abs Immat Gran (auto) Absolute Neuts (auto) Absolute Nucleated RBC Nucleated RBC % Sodium Potassium Chloride Carbon Dioxide Anion Gap BUN Creatinine Estim Creat Clear Calc Estimated GFR Glucose POC Capillary Glucose 173 H 214 H Calcium Total Bilirubin AST ALT Alkaline Phosphatase Total Protein Albumin Urine Color Urine Appearance Urine pH Ur Specific [place] Urine Protein Urine Glucose (UA) Urine Ketones Ur Blood (Man) Urine Nitrate Urine Bilirubin Urine Urobilinogen Leukocyte Esterase Rfl Urine RBC Urine WBC Ur Squamous Epith Cells Urine Bacteria Urine Casts Quality VTE Prophylaxis VTE prophylaxis: mechanical ordered
[2025-07-02 14:00] VITALS: BP 102/42; PULSE 80; RESP 20; TEMP 36.4; O2SAT 97
[2025-07-02] MEDS: cefTRIAXone 1 GM in SODIUM CHLORIDE 0.9% IV 50 ML 100 ML IVPB (15:30)
[2025-07-02] MEDS: ACETAMINOPHEN 325 MG TABLET 650 MG PO (18:24)
[2025-07-02 21:17] VITALS: BP 104/49; PULSE 81; RESP 16; TEMP 35.9; O2SAT 93
[2025-07-02] MEDS: ROSUVASTATIN 20 MG TABLET PO (21:35)
[2025-07-02] MEDS: MONTELUKAST SODIUM 10 MG TABLET PO (21:35)
--- NOTE | 2025-07-02 21:56 | WPDUROPN2 ---
Progress Note: A&P Assessment and Plan (1) Acute flank pain: Code(s): R10.9 - Unspecified abdominal pain Status: Acute (2) UTI (urinary tract infection): Qualifiers: Hematuria presence: without hematuria Urinary tract infection type: acute cystitis Qualified Code(s): N30.00 - Acute cystitis without hematuria Code(s): N39.0 - Urinary tract infection, site not specified Status: Acute (3) Ureterolithiasis: Code(s): N20.1 - Calculus of ureter Status: Acute Assessment and Plan: s/p stent placement by Dr Luis. continue abx and culture directed therapy, gross hematuria expected after stent placement/ UTI, anticoagulation. monitor output and monitor for clot retention. definitive stone tretament when infection has been treated. Pt. understands temporary nature of stent and need for further suregery to treat stone Subjective Subjective Date/Time Seen: 07/02/25 21:56 Interval history: having hematuria, no pain no clots. AVSS. NAEO. Review of Systems Constitutional: Constitutional: Reports as per HPI and Reports no additional constitutional complaints Eyes: Eyes: Reports as per HPI and Reports no additional eye complaints Respiratory: Respiratory: Reports no additional respiratory complaints Gastrointestinal: Gastrointestinal: Denies abdominal pain and Denies hematochezia Genitourinary: Genitourinary: Reports no additional female genitourinary complaints and Reports as per HPI Exam Const: General: comfortable and no acute distress HENMT: Face/Nose/Sinus: Normal nares present Eyes: General: appearance normal, both eyes and all related structures Sclera: sclerae normal Neck: Lymphatic: lymphadenopathy not noted Resp: Effort & Inspection: normal respiratory effort Cardio: Rate: regular rate Rhythm: regular rhythm GI: Inspection: non-distended GI Palp: Yes Soft to palpation and No Tenderness to palpation present (GI) Objective Data Vital Signs Vital Signs: Vital Signs - 24 hr 07/02/25 06:00 07/02/25 09:16 07/02/25 14:00 Temperature 36.0 C L 36.4 C L Pulse Rate 77 80 Respiratory Rate 20 20 Blood Pressure 114/57 L 102/42 L Pulse Oximetry 98 97 Oxygen Delivery Room Air 07/02/25 21:17 Temperature 35.9 C L Pulse Rate 81 Respiratory Rate 16 Blood Pressure 104/49 L Pulse Oximetry 93 Oxygen Delivery Intake/Output Intake/Output: Intake & Output 06/29/25 06/30/25 07/01/25 07/02/25 23:59 23:59 23:59 23:59 Intake Total 320 1940 Output Total 300 1900 Balance 20 40 Meds/Results Medications: Active Medications Generic Name Dose Route Start Last Admin Trade Name Freq PRN Reason Stop Dose Admin Acetaminophen 650 mg 07/01/25 19:16 07/02/25 18:24 Acetaminophen 325 Mg Tablet PO 650 mg Q4H PRN Administration Mild Pain (1-3) or Fever Clopidogrel Bisulfate 75 mg 07/02/25 09:00 07/02/25 09:32 Clopidogrel Bisulfate 75 Mg Tablet PO Not Given DAILY SUSHMA Dextrose 12.5 gm 07/01/25 19:22 Dextrose 50% 25 Gm/50 Ml Syringe IV PUSH PRN PRN Hypoglycemia Protocol Docusate Sodium 100 mg 07/01/25 19:24 Docusate Sodium 100 Mg Capsule PO Q12H PRN Constipation Famotidine 20 mg 07/02/25 09:00 07/02/25 21:35 Famotidine 20 Mg Tablet PO 20 mg Q12HR SUSHMA Administration Glimepiride 2 mg 07/02/25 09:00 07/02/25 09:16 Glimepiride 2 Mg Tablet PO 2 mg DAILY SUSHMA Administration Glucagon 1 mg 07/01/25 19:22 Glucagon For Inj 1 Mg Vial IM PRN PRN Hypoglycemia Protocol Glucose 15 gm 07/01/25 19:22 Glucose Oral Gel 15 Gm Of Glucse In 37.5 Gm Tube PO PRN PRN Hypoglycemia Protocol Dextrose 1,000 mls @ 100 mls/hr 07/01/25 19:22 Dextrose 5% 1,000 Ml IVPB PRN PRN Hypoglycemia Protocol Ceftriaxone Sodium 1 gm/ 50 mls @ 100 mls/hr 07/02/25 14:00 07/02/25 15:30 Sodium Chloride IVPB 100 mls/hr Q24H SUSHMA Administration Ibuprofen 600 mg 07/01/25 19:16 Ibuprofen 600 Mg Tablet PO Q6H PRN Pain Rated 4-6 Insulin Aspart 3 - 6 units 07/02/25 08:00 07/02/25 16:18 Insulin Aspart (*Bkc) 100 Units/Ml SUB-Q Not Given TIDWM SUSHMA Protocol Lisinopril 5 mg 07/02/25 09:00 07/02/25 09:16 Lisinopril 5 Mg Tablet PO 5 mg DAILY SUSHMA Administration Montelukast Sodium 10 mg 07/01/25 21:30 07/02/25 21:35 Montelukast Sodium 10 Mg Tablet PO 10 mg HS SUSHMA Administration Ondansetron HCl 4 mg 07/01/25 19:23 Ondansetron Inj 4 Mg/2 Ml Vial IV PUSH Q6H PRN Nausea And Vomiting Rosuvastatin Calcium 20 mg 07/01/25 21:25 07/02/25 21:35 Rosuvastatin 20 Mg Tablet PO 20 mg HS SUSHMA Administration Valacyclovir HCl 500 mg 07/01/25 21:25 07/02/25 21:35 Valacyclovir Hcl 500 Mg Tablet PO 500 mg HS SUSHMA Administration Radiology Results: ITS Impressions Abdomen X-Ray 07/01/25 12:54 IMPRESSION: No acute process. Retrograde Pyelogram 07/01/25 15:18 IMPRESSION: 1. Right internal ureteral stent placement. Please refer to real-time procedural findings for details. Labs Labs: Laboratory Results - last 24 hr 07/02/25 07/02/25 07/02/25 05:10 07:36 11:38 WBC 9.4 RBC 3.72 L Hgb 11.8 L Hct 36.1 L MCV 97.0 MCH 31.7 MCHC 32.7 RDW 12.9 Plt Count 239 MPV 9.5 Immature Gran % (Auto) 0.4 Neut % (Auto) 72.0 Lymph % (Auto) 19.4 [place] % (Auto) 7.9 Eos % (Auto) 0.2 Baso % (Auto) 0.1 L Lymph # (Auto) 1.83 [place] # (Auto) 0.8 H Eos # (Auto) 0.0 Baso # (Auto) 0.0 Abs Immat Gran (auto) 0.04 H Absolute Neuts (auto) 6.8 H Absolute Nucleated RBC 0.000 Nucleated RBC % 0.0 Sodium 134 L Potassium 4.2 Chloride 105 Carbon Dioxide 23 Anion Gap 6 BUN 10 Creatinine 0.57 L Estim Creat Clear Calc 69 Estimated GFR > 60 Glucose 169 H POC Capillary Glucose 173 H 214 H Calcium 9.1 Total Bilirubin 0.3 AST 26 ALT 18 Alkaline Phosphatase 64 Total Protein 6.2 L Albumin 3.6 07/02/25 07/02/25 16:18 20:28 WBC RBC Hgb Hct MCV MCH MCHC RDW Plt Count MPV Immature Gran % (Auto) Neut % (Auto) Lymph % (Auto) [place] % (Auto) Eos % (Auto) Baso % (Auto) Lymph # (Auto) [place] # (Auto) Eos # (Auto) Baso # (Auto) Abs Immat Gran (auto) Absolute Neuts (auto) Absolute Nucleated RBC Nucleated RBC % Sodium Potassium Chloride Carbon Dioxide Anion Gap BUN Creatinine Estim Creat Clear Calc Estimated GFR Glucose POC Capillary Glucose 228 H 199 H Calcium Total Bilirubin AST ALT Alkaline Phosphatase Total Protein Albumin
[2025-07-02 22:31] VITALS: O2SAT 93
[2025-07-03 05:25] LABS: Hematocrit 37.5 % (37.0-47.0); Hemoglobin 12.2 g/dL (12.0-15.0); Immature Granulocyte Percent A 0.4 % (0-0.5); Lymphocytes Absolute Auto 2.17 K/mm3 (0.9-3.2); Mean Corpuscular HGB Conc 32.5 g/dl (32-36); Mean Corpuscular Hemoglobin 31.7 pg (26-34); Mean Corpuscular Volume 97.4 fl (80-100); Nucleated Red Blood Cells Absolute Auto 0.000 K/mm3 (0.0-0.012); Nucleated Red Blood Cells Perc 0.0 % (0.0-0.2); Platelet Count Result 229 k/mm3 (150-375); Red Blood Count 3.85 M/mm3 (4.2-5.4); White Blood Count 9.9 K/mm3 (4.5-10.0)
[2025-07-03 05:39] LABS: Alanine Aminotransferase 20 U/L (6-35); Albumin Level 3.7 g/dL (3.5-5.1); Alkaline Phosphatase 59 U/L (38-126); Anion Gap 5 mmol/L (4-12); Aspartate Amino Transferase 30 U/L (14-36); Bilirubin,Total 0.3 mg/dL (0.2-1.3); Blood Urea Nitrogen 9 mg/dL (7-17); Calcium 9.1 mg/dL (8.4-10.2); Carbon Dioxide 25 mmol/L (22-30); Chloride 108 mmol/L (98-107); Estimated CRCL calculation 67 ml/min; Estimated Glomerular Filt Rate > 60; Glucose 145 mg/dL (65-110); Magnesium 2.1 mg/dL (1.6-2.3); Potassium 3.8 mmol/L (3.4-5.0); Sodium 138 mmol/L (137-145); Total Protein 6.2 g/dL (6.3-8.2)
[2025-07-03 06:00] VITALS: BP 124/63; PULSE 75; RESP 20; TEMP 35.9; O2SAT 94
[2025-07-03 09:04] VITALS: BP 105/57
[2025-07-03] MEDS: FAMOTIDINE 20 MG TABLET PO (09:06)
[2025-07-03] MEDS: GLIMEPIRIDE 2 MG TABLET PO (09:06)
--- NOTE | 2025-07-03 10:16 | P.PNUR_ITS ---
Progress Note: A&P Assessment and Plan (1) Acute flank pain: Code(s): R10.9 - Unspecified abdominal pain Status: Acute (2) UTI (urinary tract infection): Qualifiers: Hematuria presence: without hematuria Urinary tract infection type: acute cystitis Qualified Code(s): N30.00 - Acute cystitis without hematuria Code(s): N39.0 - Urinary tract infection, site not specified Status: Acute (3) Ureterolithiasis: Code(s): N20.1 - Calculus of ureter Status: Acute Assessment and Plan: s/p stent placement by Dr Luis. continue abx and culture directed therapy (culture with 10-25 K MUG), gross hematuria expected after stent placement/ UTI, anticoagulation. monitor output and monitor for clot retention. definitive stone treatment when infection has been treated. Pt. understands temporary nature of stent and need for further surgery to treat ston. ok to dc from perspective and f/u with Dr Jaramillo (4) Hematuria: Qualifiers: Hematuria type: unspecified type Qualified Code(s): R31.9 - Hematuria, unspecified Code(s): R31.9 - Hematuria, unspecified Status: Acute Subjective Subjective Date/Time Seen: 07/03/25 10:16 Interval history: no pain, hematuria clearing, want to go home. Tolerating diet. Review of Systems Constitutional: Constitutional: Reports as per HPI and Reports no additional constitutional complaints Eyes: Eyes: Reports as per HPI and Reports no additional eye complaints Respiratory: Respiratory: Reports no additional respiratory complaints Gastrointestinal: Gastrointestinal: Denies abdominal pain and Denies hematochezia Genitourinary: Genitourinary: Reports no additional female genitourinary co mplaints and Reports as per HPI Exam Const: General: comfortable and no acute distress HENMT: Face/Nose/Sinus: Normal nares present Eyes: General: appearance normal, both eyes and all related structures Sclera: sclerae normal Neck: Lymphatic: lymphadenopathy not noted Resp: Effort & Inspection: normal respiratory effort Cardio: Rate: regular rate Rhythm: regular rhythm GI: Inspection: non-distended GI Palp: Yes Soft to palpation and No Tenderness to palpation present (GI) Objective Data Vital Signs Vital Signs: Vital Signs - 24 hr 07/02/25 14:00 07/02/25 21:17 07/02/25 21:38 Temperature 36.4 C L 35.9 C L Pulse Rate 80 81 Respiratory Rate 20 16 Blood Pressure 102/42 L 104/49 L Pulse Oximetry 97 93 Oxygen Delivery Room Air 07/02/25 22:31 07/03/25 06:00 07/03/25 09:04 Temperature 35.9 C L Pulse Rate 75 Respiratory Rate 20 Blood Pressure 124/63 105/57 L Pulse Oximetry 93 94 Oxygen Delivery Autopap Intake/Output Intake/Output: Intake & Output 06/30/25 07/01/25 07/02/25 07/03/25 23:59 23:59 23:59 23:59 Intake Total 320 1940 540 Output Total 300 1900 Balance 20 40 540 Meds/Results Medications: Active Medications Generic Name Dose Route Start Last Admin Trade Name Freq PRN Reason Stop Dose Admin Acetaminophen 650 mg 07/01/25 19:16 07/02/25 18:24 Acetaminophen 325 Mg Tablet PO 650 mg Q4H PRN Administration Mild Pain (1-3) or Fever Clopidogrel Bisulfate 75 mg 07/02/25 09:00 07/03/25 09:07 Clopidogrel Bisulfate 75 Mg Tablet PO Not Given DAILY SUSHMA Dextrose 12.5 gm 07/01/25 19:22 Dextrose 50% 25 Gm/50 Ml Syringe IV PUSH PRN PRN Hypoglycemia Protocol Docusate Sodium 100 mg 07/01/25 19:24 Docusate Sodium 100 Mg Capsule PO Q12H PRN Constipation Famotidine 20 mg 07/02/25 09:00 07/03/25 09:06 Famotidine 20 Mg Tablet PO 20 mg Q12HR SUSHMA Administration Glimepiride 2 mg 07/02/25 09:00 07/03/25 09:06 Glimepiride 2 Mg Tablet PO 2 mg DAILY SUSHMA Administration Glucagon 1 mg 07/01/25 19:22 Glucagon For Inj 1 Mg Vial IM PRN PRN Hypoglycemia Protocol Glucose 15 gm 07/01/25 19:22 Glucose Oral Gel 15 Gm Of Glucse In 37.5 Gm Tube PO PRN PRN Hypoglycemia Protocol Dextrose 1,000 mls @ 100 mls/hr 07/01/25 19:22 Dextrose 5% 1,000 Ml IVPB PRN PRN Hypoglycemia Protocol Ceftriaxone Sodium 1 gm/ 50 mls @ 100 mls/hr 07/02/25 14:00 07/02/25 15:30 Sodium Chloride IVPB 100 mls/hr Q24H SUSHMA Administration Ibuprofen 600 mg 07/01/25 19:16 Ibuprofen 600 Mg Tablet PO Q6H PRN Pain Rated 4-6 Insulin Aspart 3 - 6 units 07/02/25 08:00 07/03/25 08:08 Insulin Aspart (*Bkc) 100 Units/Ml SUB-Q Not Given TIDWM [facility] Protocol Lisinopril 5 mg 07/02/25 09:00 07/03/25 09:05 Lisinopril 5 Mg Tablet PO 5 mg DAILY SUSHMA Administration Montelukast Sodium 10 mg 07/01/25 21:30 07/02/25 21:35 Montelukast Sodium 10 Mg Tablet PO 10 mg HS SUSHMA Administration Ondansetron HCl 4 mg 07/01/25 19:23 Ondansetron Inj 4 Mg/2 Ml Vial IV PUSH Q6H PRN Nausea And Vomiting Rosuvastatin Calcium 20 mg 07/01/25 21:25 07/02/25 21:35 Rosuvastatin 20 Mg Tablet PO 20 mg HS SUSHMA Administration Valacyclovir HCl 500 mg 07/01/25 21:25 07/02/25 21:35 Valacyclovir Hcl 500 Mg Tablet PO 500 mg HS SUSHMA Administration Radiology Results: ITS Impressions Abdomen X-Ray 07/01/25 12:54 IMPRESSION: No acute process. Retrograde Pyelogram 07/01/25 15:18 IMPRESSION: 1. Right internal ureteral stent placement. Please refer to real-time procedural findings for details. Labs Labs: Laboratory Results - last 24 hr 07/02/25 07/02/25 07/02/25 11:38 16:18 20:28 WBC RBC Hgb Hct MCV MCH MCHC RDW Plt Count MPV Immature Gran % (Auto) Neut % (Auto) Lymph % (Auto) [place] % (Auto) Eos % (Auto) Baso % (Auto) Lymph # (Auto) [place] # (Auto) Eos # (Auto) Baso # (Auto) Abs Immat Gran (auto) Absolute Neuts (auto) Absolute Nucleated RBC Nucleated RBC % Sodium Potassium Chloride Carbon Dioxide Anion Gap BUN Creatinine Estim Creat Clear Calc Estimated GFR Glucose POC Capillary Glucose 214 H 228 H 199 H Lactic Acid Calcium Magnesium Total Bilirubin AST ALT Alkaline Phosphatase Total Protein Albumin 07/03/25 07/03/25 05:08 07:55 WBC 9.9 RBC 3.85 L Hgb 12.2 Hct 37.5 MCV 97.4 MCH 31.7 MCHC 32.5 RDW 13.3 Plt Count 229 MPV 9.1 Immature Gran % (Auto) 0.4 Neut % (Auto) 64.5 Lymph % (Auto) 21.9 [place] % (Auto) 10.0 H Eos % (Auto) 3.1 Baso % (Auto) 0.1 L Lymph # (Auto) 2.17 [place] # (Auto) 1.0 H Eos # (Auto) 0.3 Baso # (Auto) 0.0 Abs Immat Gran (auto) 0.04 H Absolute Neuts (auto) 6.4 Absolute Nucleated RBC 0.000 Nucleated RBC % 0.0 Sodium 138 Potassium 3.8 Chloride 108 H Carbon Dioxide 25 Anion Gap 5 BUN 9 Creatinine 0.59 L Estim Creat Clear Calc 67 Estimated GFR > 60 Glucose 145 H POC Capillary Glucose 168 H Lactic Acid 1.2 Calcium 9.1 Magnesium 2.1 Total Bilirubin 0.3 AST 30 ALT 20 Alkaline Phosphatase 59 Total Protein 6.2 L Albumin 3.7
--- NOTE | 2025-07-03 11:49 | PM.DS ---
DS: Admitting Diagnosis Discharge Date 07/03/25 Admitting Diagnosis Flank Pain DS: Discharge Diagnosis Discharge Diagnosis (1) Renal calculus: Code(s): N20.0 - Calculus of kidney Status: Acute DS: Summary Hospital Course Hospital Course: 65 y/o F with PMH of COPD, kidney stones, DM2, TIA, airport bowel, and CAD presents here with flank pain and known kidney stone. The patient reports difficulty urinating x1 week which prompted her to to seek care with her PCP yesterday on 06/30. She reported at that time that the pain felt similar to her previous kidney stones. She had a CT scan completed which showed bilateral nephrolithiasis, a 1.1 cm stone in the right renal pelvis, and stranding consistent with pyelitis. She was then contacted prior PCP and directed to the emergency department for further evaluation and care. Today she is reporting urinary urgency and right flank pain. She denies nausea, vomiting, fever, chills, body aches, or diarrhea (that is different than her usual due to her IBS). Initial VS at presentation: 98.1? F, HR 99, R 16, 110/99, and 98% on RA. ED workup showed: WBC 10.3, no anemia, no significant electrolyte derangements, creatinine 0.67, glucose 187, and UA suggestive of UTI with few epithelial cells. Abdominal XR showed no acute process. CT of the abdomen/pelvis from 06/30 showed bilateral nephrolithiasis with mild stranding findings right renal pelvis where there is a 1.1 cm stone consistent with pyelitis which could be either septic or aseptic. Urology was consulted and patient was taken to OR and underwent Cystoscopy, right retrograde, right ureteral stent placement. had initial hematuria afterwards which has resolved Also CT ap showed pyelitis, however urine culture negative .however patient received 2 days of Rocephin and discharged on Levaquin F/u with PCP in 3-5 days F/u with urology as instructed Time Spent with Patient Time attestation: Total time spent providing and/or coordinating discharge services: DS: Data Data Completed and Pending Labs on day of discharge: Labs from last 24 hours 07/03/25 07/03/25 07/02/25 07:55 05:08 20:28 WBC 9.9 RBC 3.85 L Hgb 12.2 Hct 37.5 MCV 97.4 MCH 31.7 MCHC 32.5 RDW 13.3 Plt Count 229 MPV 9.1 Immature Gran % (Auto) 0.4 Neut % (Auto) 64.5 Lymph % (Auto) 21.9 [place] % (Auto) 10.0 H Eos % (Auto) 3.1 Baso % (Auto) 0.1 L Lymph # (Auto) 2.17 [place] # (Auto) 1.0 H Eos # (Auto) 0.3 Baso # (Auto) 0.0 Abs Immat Gran (auto) 0.04 H Absolute Neuts (auto) 6.4 Absolute Nucleated RBC 0.000 Nucleated RBC % 0.0 Sodium 138 Potassium 3.8 Chloride 108 H Carbon Dioxide 25 Anion Gap 5 BUN 9 Creatinine 0.59 L Estim Creat Clear Calc 67 Estimated GFR > 60 Glucose 145 H POC Capillary Glucose 168 H 199 H Lactic Acid 1.2 Calcium 9.1 Magnesium 2.1 Total Bilirubin 0.3 AST 30 ALT 20 Alkaline Phosphatase 59 Total Protein 6.2 L Albumin 3.7 07/02/25 16:18 WBC RBC Hgb Hct MCV MCH MCHC RDW Plt Count MPV Immature Gran % (Auto) Neut % (Auto) Lymph % (Auto) [place] % (Auto) Eos % (Auto) Baso % (Auto) Lymph # (Auto) [place] # (Auto) Eos # (Auto) Baso # (Auto) Abs Immat Gran (auto) Absolute Neuts (auto) Absolute Nucleated RBC Nucleated RBC % Sodium Potassium Chloride Carbon Dioxide Anion Gap BUN Creatinine Estim Creat Clear Calc Estimated GFR Glucose POC Capillary Glucose 228 H Lactic Acid Calcium Magnesium Total Bilirubin AST ALT Alkaline Phosphatase Total Protein Albumin Discharge Plan Discharge Attending physician on discharge: Eric Warren Consulting providers: Waldo Luis Discharging Clinician: Eric Warren Anticipated Discharge Date/Time: 07/03/25 11:46 Patient Disposition: Home Activity: as tolerated Diet: as tolerated and regular Patient Instructions: Antibiotic Form, Clopidogrel (By mouth) Patient Language: Lithuanian Stand Alone Forms: General Discharge Information Follow-up/Referrals: Waldo Luis MD [Physician, Urology] Referral Note: F/u with PCP in 3-5 days Heather Martinez NP [Primary Care Provider, Internal Medicine] Discharge Medications: New levofloxacin 500 mg tablet 500 mg PO DAILY 5 Days Qty: 5 0RF Continued lisinopril 5 mg tablet See Rx Instructions .ROUTE .COMPLEX Qty: 90 3RF Dose Instruction: TAKE 1 TABLET DAILY Rx Instructions: TAKE 1 TABLET DAILY clopidogrel 75 mg tablet See Rx Instructions .ROUTE .COMPLEX Qty: 90 3RF Dose Instruction: TAKE 1 TABLET DAILY Rx Instructions: TAKE 1 TABLET DAILY glimepiride 2 mg tablet See Rx Instructions .ROUTE .COMPLEX Qty: 90 3RF Dose Instruction: TAKE 1 TABLET DAILY Rx Instructions: TAKE 1 TABLET DAILY montelukast 10 mg tablet See Rx Instructions .ROUTE .COMPLEX Qty: 90 3RF Dose Instruction: TAKE 1 TABLET AT BEDTIME Rx Instructions: TAKE 1 TABLET AT BEDTIME rosuvastatin 20 mg tablet See Rx Instructions .ROUTE .COMPLEX Qty: 90 3RF Dose Instruction: TAKE 1 TABLET AT BEDTIME Rx Instructions: TAKE 1 TABLET AT BEDTIME valacyclovir 500 mg tablet See Rx Instructions .ROUTE .COMPLEX Qty: 90 3RF Dose Instruction: TAKE 1 TABLET AT BEDTIME Rx Instructions: TAKE 1 TABLET AT BEDTIME famotidine 20 mg tablet 20 mg PO BID Qty: 180 1RF metformin 1,000 mg tablet 1,000 mg PO BID Qty: 180 1RF (DME) blood-glucose meter Misc See Rx Instructions .Route Qty: 1 0RF Rx Instructions: Use to check blood sugars once daily (DME) Blood Glucose Test Strip See Rx Instructions .Route Qty: 100 1RF Rx Instructions: Use to check blood sugars once daily Ozempic 0.25 mg or 0.5 mg (2 mg/3 mL) pen injector 0.25 mg subcut WEEKLY Qty: 3 0RF Rx Instructions: for 4 weeks, then inject 0.5 weekly for 4 weeks. Date of admission: 07/01/25 16:08 Primary Care Provider: Heather Martinez Admitting Provider: Waldo Luis Attending physician on admission: Waldo Luis Condition: Stable
== END 2025-07-03 13:15 | disposition home or self-care (01) ==
LOC: ANHED 12:20 → ANHSURGERY 15:51 → ANH3MEDSUR 16:56 → ANHED 07-04 11:47 → ANHSURGERY 07-04 11:47 → ANH3MEDSUR 07-04 11:47
PROVIDERS: Student in an Organized Health Care Education/Training Program; Urology; Admitting Provider Internal Medicine; Emergency Provider Emergency Medicine; PCP Nurse Practitioner; Visit Provider Internal Medicine
PROC: (CPT 52352; principal; 2025-07-01 15:00)
DX: N20.1 Calculus of ureter (principal); R31.9 Hematuria, unspecified; N30.00 Acute cystitis without hematuria; F17.210 Nicotine dependence, cigarettes, uncomplicated; Z90.710 Acquired absence of both cervix and uterus; J44.9 Chronic obstructive pulmonary disease, unspecified; E11.9 Type 2 diabetes mellitus without complications; Z86.73 Personal history of transient ischemic attack (TIA), and cerebral infarction without residual deficits; Z79.02 Long term (current) use of antithrombotics/antiplatelets; I25.10 Atherosclerotic heart disease of native coronary artery without angina pectoris
CPT/HCPCS: 52332; 36415; 74018; 74420; 80053; 81001; 82948; 83605; 83735; 85025; 87086; 99285; A9270; C1758; C1769; C2617; G0378; J0696; J1885; J2003; J2250; J2270; J2405; J2704; J7030; J7120; Q9966

== ENCOUNTER 2025-07-14 10:23 | Outpatient (CLI) | payer BC, SELFPAY ==
--- NOTE | 2025-07-14 10:38 | ECG_ITS ---
Test Date: 2025-07-14 10:51:32 Measurements Intervals [place] Rate: 99 P: 64 [place]: 140 QRS: 72 QRSD: 114 T: 37 QT: 347 QTc: 447 Interpretive Statements SINUS RHYTHM LOW QRS VOLTAGE IN PRECORDIAL LEADS [QRS DEFLECTION < 1.0 mV IN CHEST LEADS] RIGHT BUNDLE BRANCH BLOCK ABNORMAL ECG] No previous ECG available for comparison Electronically Signed On 07-14-2025 12:35:30 CDT by Moe Blank M.D.
[2025-07-14 11:09] LABS: INR 1.0; Prothrombin Time 12.9 Seconds (11.1-14.7)
[2025-07-14 11:10] LABS: Partial Thromboplastin Time 24.2 Seconds (22.3-36.8)
[2025-07-14 11:16] LABS: Add Urine Microscopic? YES; Appearance Urine Clear (Clear); Glucose Urine UA Negative (Negative); Leukocyte Esterase Ur 2+ LEU/UL (Negative); Need Manual Microscopic Reviewed; Nitrate Urine Negative (Negative); Non Pathogenic Casts 0-2; Specific Grav Ur 1.007 (1.001-1.035)
== END 2025-07-14 10:24 | disposition home or self-care (01) ==
LOC: ANHSURGERY 10:27
PROVIDERS: PCP Nurse Practitioner; Visit Provider Urology
DX: E11.9 Type 2 diabetes mellitus without complications (principal); N20.1 Calculus of ureter; Z01.818 Encounter for other preprocedural examination
CPT/HCPCS: 36415; 81001; 85610; 85730; 87086; 93005

== ENCOUNTER 2025-07-15 05:49 | Day surgery (SDC) | payer BC, SELFPAY ==
[2025-07-06 15:26] VITALS: BMI 26.4
--- NOTE | 2025-07-06 15:34 | PC.NURSE ---
Report to the Outpatient Waiting Room, entrance under the green pavilion located off [facility], at time _0800_ on date _[id number]_. Planned Procedure Time: _1000_.? Time changes happen often and if your time is changed the preop area will call you the afternoon before. - You and your visitor will be asked to self-screen and do not enter if you have any COVID symptoms. Please call surgeon if you need to reschedule. - A mask is optional within the hospital at this time. Patients may have clear liquids (water, carbonated beverages, clear teas, apple juice) until 3 hours prior to surgery with a maximum of 20 ounces. - No food from midnight until time of surgery and no smoking, or chewing tobacco (or any form of nicotine). No chewing gum, candy or mints. Take only the following medications with a SIP of water on the morning of surgery: __None___ DO NOT STOP ANY OF YOUR OTHER PRESCRIPTION MEDICATIONS PRIOR TO SURGERY EXCEPT THE FOLLOWING Hold all vitamins and supplements for 3 days per anesthesiologist. Medications to discontinue per physician ____Patient says told to hold Chlopidogrel for 7 days prior to surgery.___ Date to take last dose Please no make-up, nail marshallese, hairspray, perfume, deodorant, or body powder the day of surgery.? No jewelry (including any body piercings) or valuables the day of surgery, leave them at home.? Please take a shower or bath the night before, or the morning of, surgery with an antibacterial soap.? Wear comfortable, loose fitting clothing.? - Jewelry must be removed prior to entering the operating room.? Rings and piercings that are not removed may be cut off. - The hospital will not accept responsibility for valuables.? - Please leave all valuables, including medications, at home the day of surgery. If you are going home after surgery, a licensed cdl dedicated truck driver must drive you home.? - NO public transportation without another adult if you receive anesthesia. - We recommend that an adult stay with you for 24 hours following discharge. - We also recommend that you do not drive, make important decision, drink alcoholic beverages, or take any drugs that were not prescribed by your health care provider for at least 24 hours after your discharge time. Follow any additional instructions given to you from your surgeon. Telephone instructions given to __Elaine___and asked if any additional questions and then verbalized understanding. Patient advised to call surgeon office or pre surgery nurse liaison [phone] if any additional questions.
--- NOTE | 2025-07-08 07:51 | PM.HPGS ---
History of Present Illness History of Present Illness Consent: Risks, benefits, and alternatives have been discussed and questions answered. Patient agrees to proceed with procedure. Chief complaint: Right Ureteral Stone Narrative: Annette Camacho is a 65 year old female who is status post right ureteral stent placement for Dr. Luis on July 01 for a 1.1 cm right renal pelvic stone. She now presents for definitive treatment with right ESWL. Alternative options have been discussed including ureteroscopy with laser lithotripsy. She is aware the risk included, not limited to, adverse cardiopulmonary events, need for additional procedures, hematuria perinephric hematoma. She is aware that we will leave her stent in place Review of Systems Review of Systems: All systems reviewed & are unremarkable except as noted in HPI and below PMFSH Past Medical History Medical History Chronic obstructive pulmonary disease Renal calculus Tobacco abuse Type 2 diabetes mellitus Transient ischemic attack Antiplatelet or antithrombotic long-term use History of TIA (transient ischemic attack) Reported history of multiple TIAs over 10 years ago and subsequently was started on Plavix Irritable bowel Coronary artery disease Surgical History Surgical History Hx of exploratory laparotomy Exploratory laparotomy with abdominal adhesiolysis performed 01/22/23 History of total abdominal hysterectomy and bilateral salpingo-oophorectomy History of cholecystectomy Open cholecystectomy Family History Family History Mother Hypertension Sibling Breast cancer Diabetes mellitus Hypertension Social History Social History Social History: Surrogate medical decision maker: Russellranda Mueller, friend. Code status: Full code. 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 Gender identity (if verbalized by the patient): Female Sexual Orientation (if Verbalized by the Patient): Lesbian, Vázquez, or Homosexual Spiritual care concerns: No Agree to blood products: Yes Meds Home Medications and Allergies Home Medications ?Medication ?Instructions ?Recorded ?Confirmed ?Type clopidogrel 75 mg tablet See Rx Instructions .Route 11/22/24 07/06/25 Rx .COMPLEX #90 tabs glimepiride 2 mg tablet See Rx Instructions .Route 11/22/24 07/06/25 Rx .COMPLEX #90 tabs lisinopril 5 mg tablet See Rx Instructions .Route 11/22/24 07/06/25 Rx .COMPLEX #90 tabs montelukast 10 mg tablet See Rx Instructions .Route 11/22/24 07/06/25 Rx .COMPLEX #90 tabs rosuvastatin 20 mg tablet See Rx Instructions .Route 11/22/24 07/06/25 Rx .COMPLEX #90 tabs valacyclovir 500 mg tablet See Rx Instructions .Route 11/29/24 07/06/25 Rx .COMPLEX #90 tabs famotidine 20 mg tablet 20 mg PO BID #180 tabs 02/25/25 07/06/25 Rx metformin 1,000 mg tablet 1,000 mg PO BID #180 tabs 03/17/25 07/06/25 Rx blood sugar diagnostic (Blood #100 ea 06/15/25 07/06/25 Rx Glucose Test strips) blood-glucose meter #1 ea 06/15/25 07/06/25 Rx semaglutide 0.25 mg or 0.5 mg (2 0.25 mg (0.368 mL) subcut WEEKLY 06/20/25 07/06/25 Rx mg/3 mL) subcutaneous pen injector #3 mL (Ozempic) levofloxacin 500 mg tablet 500 mg PO DAILY 5 days #5 tabs 07/03/25 07/06/25 Rx Allergies Allergy/AdvReac Type Severity Reaction Status Date / Time hydrocodone AdvReac Severe NAUSEA AND Verified 07/06/25 15:24 VOMITING Exam Const: General: no acute distress Resp: Effort & Inspection: normal respiratory effort GI: Inspection: non-distended GI Palp: No abdominal tenderness and No Guarding due to palpation present (GI) Auscultation: normal bowel sounds Assessment and Plan Assessment and plan (1) Renal calculus: Code(s): N20.0 - Calculus of kidney Status: Acute Assessment and Plan: Right ESWL
[2025-07-15] VITALS (8 sets, daily range): BP systolic 114–124; BP diastolic 54–64; PULSE 79–96; RESP 16–20; TEMP 36.2–36.4; O2SAT 95–100
--- NOTE | ~2025-07-15 | XR_ITS ---
EXAMINATION: XR abdomen/kub 1V DATE: 07/15/2025 08:17 INDICATION: Extracorporeal shockwave lithotripsy TECHNIQUE: A supine view of the abdomen on 2 radiographs was obtained. COMPARISON: KUB dated 07/01/[address] dated 07/21 FINDINGS: Cholecystectomy clips in right upper quadrant. Right internal ureteral stent remains in expected position with loops formed over the expected location of the right renal pelvis and bladder. There is an approximately 12 mm subtle stone projecting over the proximal loop of the right internal ureteral stent appears be an additional 3 mm stone projecting slightly inferolateral to the loop of the stent. There are a couple small stones projecting over the lower pole the left kidney. There is also a curvilinear rim calcified exophytic cyst at the lower pole the left kidney. Unchanged pattern of several phleboliths and atherosclerotic calcifications in the left and right pelvis. No dilated loops of gas-filled bowel to suggest obstruction. Visualized mid and lower lungs are clear. Heart size is normal. IMPRESSION: 1. Bilateral nephrolithiasis including a 12 mm stone at the right renal pelvis projecting over the proximal loop of a right internal ureteral stent. Reviewed, dictated and finalized at location A.
--- NOTE | 2025-07-15 06:18 | WPDHPUPDATE1 ---
History and Physical Update Update Date/Time: 07/15/25 06:18 History and Physical has been reviewed, including an updated exam of the patient. There are NO changes in the patient's condition. Risks, benefits, and alternatives have been discussed and questions answered. Patient agrees to proceed with procedure.
[2025-07-15] MEDS: LACTATED RINGERS 1,000 ML 30 ML IV CONT (08:35)
--- NOTE | 2025-07-15 09:25 | WPDANESEPPF ---
Anes - Initial Pre Proc Eval Procedure: Operation Date: 07/15/25 10:00 Proposed Procedures p Right Extracorporeal Shock Wave Lithotripsy - Addison Cheng MD s Cystoscopy with Stent Removal Replacement - Addison Cheng MD Date/Time: 07/15/25 09:25 Surgeon: Addison Cheng MD Pre Op Diagnosis: Right Ureteral Stone Patient Data Age: 65 Gender: F Height: 1.52 m Weight: 61.2 kg Last Vital Signs Temp 97.1 F L 07/15/25 08:20 Pulse 96 07/15/25 08:20 Resp 18 07/15/25 08:20 BP 118/59 L 07/15/25 08:20 Pulse Ox 98 07/15/25 08:20 O2 Del Method Room Air 07/15/25 08:20 Allergies Allergy/AdvReac Type Severity Reaction Status Date / Time hydrocodone AdvReac Severe NAUSEA AND Verified 07/06/25 15:24 VOMITING Home Medications ?Medication ?Instructions ?Recorded ?Confirmed ?Type clopidogrel 75 mg tablet See Rx Instructions .Route 11/22/24 07/15/25 Rx .COMPLEX #90 tabs glimepiride 2 mg tablet See Rx Instructions .Route 11/22/24 07/15/25 Rx .COMPLEX #90 tabs lisinopril 5 mg tablet See Rx Instructions .Route 11/22/24 07/15/25 Rx .COMPLEX #90 tabs montelukast 10 mg tablet See Rx Instructions .Route 11/22/24 07/15/25 Rx .COMPLEX #90 tabs rosuvastatin 20 mg tablet See Rx Instructions .Route 11/22/24 07/15/25 Rx .COMPLEX #90 tabs valacyclovir 500 mg tablet See Rx Instructions .Route 11/29/24 07/15/25 Rx .COMPLEX #90 tabs famotidine 20 mg tablet 20 mg PO BID #180 tabs 02/25/25 07/15/25 Rx metformin 1,000 mg tablet 1,000 mg PO BID #180 tabs 03/17/25 07/15/25 Rx blood sugar diagnostic (Blood #100 ea 06/15/25 07/06/25 Rx Glucose Test strips) blood-glucose meter #1 ea 06/15/25 07/06/25 Rx semaglutide 0.25 mg or 0.5 mg (2 0.25 mg (0.368 mL) subcut WEEKLY 06/20/25 07/15/25 Rx mg/3 mL) subcutaneous pen injector #3 mL (Ozempic) Laboratory Tests 07/15/25 08:36 POC Capillary Glucose 202 H mg/dl (65-105) Patient hx anesthesia problems: none Family hx anesthesia problems: none Results Review: All pre-operative results and documents have been reviewed as part of the pre-operative evaluation. [facility] Past Medical History Medical History Chronic obstructive pulmonary disease Renal calculus Tobacco abuse Type 2 diabetes mellitus Transient ischemic attack Antiplatelet or antithrombotic long-term use History of TIA (transient ischemic attack) Reported history of multiple TIAs over 10 years ago and subsequently was started on Plavix Irritable bowel Coronary artery disease Surgical History Surgical History Hx of exploratory laparotomy Exploratory laparotomy with abdominal adhesiolysis performed 01/22/23 History of total abdominal hysterectomy and bilateral salpingo-oophorectomy History of cholecystectomy Open cholecystectomy Family History Family History Mother Hypertension Sibling Breast cancer Diabetes mellitus Hypertension Social History Social History Social History: Surrogate medical decision maker: Russellranda Mueller, friend. Code status: Full code. 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 ) Neurological: alert and oriented Last oral intake: >/= 8 hours ASA classification: III Emergent: no Anesthetic plan: proceed Anesthesia type and monitoring: general LMA and standard monitoring Results Review: All pre-operative results and documents have been reviewed as part of the pre-operative evaluation. HTN, hyperlipidemia, DM fsbs 202, smoker. 2ppd for 40 years, none this am. Informed Consent: The patient's anesthetic plan and its attendant risks and benefits were discussed with the patient/family/POA. Questions were solicited and answers provided to the satisfaction of the patient/family/POA.
[2025-07-15] MEDS: ceFAZolin 2 GM in SODIUM CHLORIDE 0.9% IV 50 ML 100 ML IVPB (10:17)
--- NOTE | 2025-07-15 10:29 | W.PM.PROC2 ---
Procedure Note - Detailed Date of Procedure 07/15/25 Pre-op Diagnosis Right Renal Stone Post-op Diagnosis Same Procedure Performed Right ESWL Surgeon Addison Cheng MD Anesthesia General Description of Procedure The patient was brought to the operative suite where she was placed in the supine position on the Dornier lithotripsy table. The focal point of the lithotripter was placed at a 8-9mm right renal calculus. A total of 2500 shocks were delivered at a power setting of 4. There appeared to be good fragmentation of the stone. The patient tolerated the procedure well and was taken to the recovery room in good condition. Drains No Packing No Pathology None sent
[2025-07-15] MEDS: ACETAMINOPHEN 500 MG TABLET 1000 MG PO (12:26)
== END 2025-07-15 12:52 | disposition home or self-care (01) ==
PROVIDERS: PCP Nurse Practitioner; Visit Provider Urology
PROC: (CPT 50590; principal; 2025-07-15 10:00)
DX: N20.0 Calculus of kidney (principal); I10 Essential (primary) hypertension; E78.5 Hyperlipidemia, unspecified; E11.9 Type 2 diabetes mellitus without complications; J44.9 Chronic obstructive pulmonary disease, unspecified; K58.9 Irritable bowel syndrome, unspecified; I25.10 Atherosclerotic heart disease of native coronary artery without angina pectoris; F17.210 Nicotine dependence, cigarettes, uncomplicated; Z79.02 Long term (current) use of antithrombotics/antiplatelets; Z79.84 Long term (current) use of oral hypoglycemic drugs; Z79.85 Long-term (current) use of injectable non-insulin antidiabetic drugs; Z98.890 Other specified postprocedural states; Z96.0 Presence of urogenital implants; Z90.49 Acquired absence of other specified parts of digestive tract; Z86.73 Personal history of transient ischemic attack (TIA), and cerebral infarction without residual deficits; Z80.3 Family history of malignant neoplasm of breast
CPT/HCPCS: 50590; 74018; 82948; J0690; A9270; J2003; J2405; J2704; J3010; J7120

== ENCOUNTER 2025-07-26 12:49 | Outpatient (CLI) | payer BC, SELFPAY ==
--- NOTE | ~2025-07-26 | XR_ITS ---
EXAMINATION: XR abdomen/kub 1V DATE: 07/26/2025 13:05 INDICATION: Calculus of kidney TECHNIQUE: A supine view of the abdomen on 2 radiographs was obtained. COMPARISON: 07/15/2025 FINDINGS: Clips project over the right upper abdomen. Grossly stable positioning of the right double-J ureteral stent. Moderate amount of stool. Stable calcifications in the kidneys. There are a few less than 1.0 cm calcifications projecting over the pelvis which may represent phleboliths, however, a distal ureteral stone or bladder stone or possible. Moderate amount of air in nondilated large and small bowel. IMPRESSION: 1. Grossly stable positioning of the right double-J ureteral stent. 2. Stable calcifications in the kidneys. Stable calcification projecting of the right renal pelvis. 3. There are a few less than 1.0 cm calcifications projecting over the pelvis which may represent phleboliths, however, a distal ureteral stone or bladder stone or possible. 4. Nonspecific abdomen with a moderate amount of stool. If symptoms persist or worsen, consider a short-term follow-up study or CT imaging for further assessment. Reviewed, dictated and finalized at location Q. IMPRESSION: 1. Grossly stable positioning of the right double-J ureteral stent. 2. Stable calcifications in the kidneys. Stable calcification projecting of the right renal pelvis. 3. There are a few less than 1.0 cm calcifications projecting over the pelvis w hich may represent phleboliths, however, a distal ureteral stone or bladder sto ne or possible. 4. Nonspecific abdomen with a moderate amount of stool. If symptoms persist or worsen, consider a short-term follow-up study or CT imag ing for further assessment.
== END 2025-07-26 12:50 | disposition home or self-care (01) ==
PROVIDERS: PCP Nurse Practitioner; Visit Provider Urology
DX: N20.0 Calculus of kidney (principal); Z96.0 Presence of urogenital implants
CPT/HCPCS: 74018

== ENCOUNTER 2025-08-04 10:07 | Outpatient (CLI) | payer BC, SELFPAY ==
--- NOTE | ~2025-08-04 | XR_ITS ---
EXAMINATION: XR abdomen/kub 1V DATE: 08/04/2025 10:26 INDICATION: Kidney stone TECHNIQUE: A supine view of the abdomen on 2 radiographs was obtained. COMPARISON: KUB dated 07/26/[address] dated FINDINGS: Unchanged right internal ureteral stent with loops formed in the expected location of the right renal pelvis and bladder. Also unchanged is bilateral nephrolithiasis with multiple rib or stone fragments project over the right renal pelvis and lower pole calyces. Unchanged 5 mm stone projecting over the lower pole of the left kidney are irregular appearing calcification corresponding to the partially rim calcified exophytic lesion at the lower pole of the left kidney. Atherosclerotic calcifications and phleboliths in the pelvis and bilateral inguinal regions. IMPRESSION: 1. Unchanged right internal ureteral stent in expected position. 2. No evident change in a 5 mm stone at the left kidney and multiple stone fragments at the right renal pelvis and lower pole calyces of the right kidney. Reviewed, dictated and finalized at location A. IMPRESSION: 1. Unchanged right internal ureteral stent in expected position. 2. No evident change in a 5 mm stone at the left kidney and multiple stone frag ments at the right renal pelvis and lower pole calyces of the right kidney.
== END 2025-08-04 10:08 | disposition home or self-care (01) ==
PROVIDERS: PCP Nurse Practitioner; Visit Provider Urology
DX: N20.0 Calculus of kidney (principal); Z96.0 Presence of urogenital implants
CPT/HCPCS: 74018

== ENCOUNTER 2025-08-25 01:36 | Day surgery (SDC) | payer BC, SELFPAY ==
--- NOTE | 2025-08-17 13:01 | SUR.PREOP ---
[facility] has started construction of its new state of the art ER which will open Spring 2026. With this, we anticipate parking may be a challenge for some our surgical patients and families. Parking spaces are limited but are available for all Surgical, obstetrics, and ER patients sharing this lot. If you arrive and find you are having a hard time finding a parking space, please note that we understand the challenges, please drive around the hospital and park near Hospital Entrance 1. When you enter this entrance, you can ask a volunteer to direct or take you back to the surgical waiting area to check in. We appreciate everyone?s understanding of these expected challenges while we build for your future. Report to the Outpatient Waiting Room, entrance under the green pavilion located off [address], at time _8am__ on date _08/25/25___. Planned Procedure Time: __10am___.? Time changes happen often and if your time is changed the preop area will call you the afternoon before. - You and your visitor will be asked to self-screen and do not enter if you have any COVID symptoms. Please call surgeon if you need to reschedule. - A mask is optional within the hospital at this time. Patients may have clear liquids (water, carbonated beverages, clear teas, apple juice) until 3 hours prior to surgery with a maximum of 20 ounces. - No food from midnight until time of surgery and no smoking, or chewing tobacco (or any form of nicotine). No chewing gum, candy or mints. Take only the following medications with a SIP of water on the morning of surgery: _Vicoden if needed DO NOT STOP ANY OF YOUR OTHER PRESCRIPTION MEDICATIONS PRIOR TO SURGERY EXCEPT THE FOLLOWING Hold all vitamins and supplements for 3 days per anesthesiologist. Medications to discontinue per physician: ____clopidogrel hold 08/18/25 Date to take last dose of Vitamins:___08/21/25____ Please no make-up, nail syriac, hairspray, perfume, deodorant, or body powder the day of surgery.? No jewelry (including any body piercings) or valuables the day of surgery, leave them at home.? Please take a shower or bath the night before, or the morning of, surgery with an antibacterial soap.? Wear comfortable, loose fitting clothing.? - Jewelry must be removed prior to entering the operating room.? Rings and piercings that are not removed may be cut off. - The hospital will not accept responsibility for valuables.? - Please leave all valuables, including medications, at home the day of surgery. If you are going home after surgery, a licensed driver license agent must drive you home.? - NO public transportation without another adult if you receive anesthesia. - We recommend that an adult stay with you for 24 hours following discharge. - We also recommend that you do not drive, make important decision, drink alcoholic beverages, or take any drugs that were not prescribed by your health care provider for at least 24 hours after your discharge time. Follow any additional instructions given to you from your surgeon. Telephone instructions given to __Annette and asked if any additional questions and then verbalized understanding. Patient advised to call surgeon office or pre surgery nurse liaison [phone] if any additional questions.
[2025-08-17 13:08] VITALS: BMI 26.4
--- NOTE | 2025-08-18 07:17 | PM.HPGS ---
History of Present Illness History of Present Illness Consent: Risks, benefits, and alternatives have been discussed and questions answered. Patient agrees to proceed with procedure. Chief complaint: right kidney stone Narrative: Annette Camacho is a 65 year old female recently had right ESWL. ?KUB shows what appears to be a fractured, but not yet passed, renal stone. ?I suspect she may need ureteroscopy to finish the job. ?Go ahead and schedule cystoscopy with right ureteroscopy, laser lithotripsy with stone extraction, possible retrograde pyelogram and stent replacement. ?Schedule that for approximately 2 weeks and have a repeat a KUB in 1 week to make sure that things are not passing on their own. Addendum Note?(Addison Cheng MD; 08/10/2025 7:00 AM) KUB: Right ureteral stone burden unchanged We will proceed with right ureteroscopy as planned PMFSH Past Medical History Medical History Chronic obstructive pulmonary disease Renal calculus Tobacco abuse Type 2 diabetes mellitus Transient ischemic attack Antiplatelet or antithrombotic long-term use History of TIA (transient ischemic attack) Reported history of multiple TIAs over 10 years ago and subsequently was started on Plavix Irritable bowel Coronary artery disease Surgical History Surgical History Hx of exploratory laparotomy Exploratory laparotomy with abdominal adhesiolysis performed 01/22/23 History of total abdominal hysterectomy and bilateral salpingo-oophorectomy History of cholecystectomy Open cholecystectomy Family History Family History Mother Hypertension Sibling Breast cancer Diabetes mellitus Hypertension Social History Social History Social History: Surrogate medical decision maker: Russellranda Mueller, friend. Code status: Full code. 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 .COMPLEX #90 tabs Instructions: Resume on 07/17/25. glimepiride 2 mg tablet See Rx Instructions .Route 11/22/24 08/17/25 Rx .COMPLEX #90 tabs lisinopril 5 mg tablet See Rx Instructions .Route 11/22/24 08/17/25 Rx .COMPLEX #90 tabs montelukast 10 mg tablet See Rx Instructions .Route 11/22/24 08/17/25 Rx .COMPLEX #90 tabs rosuvastatin 20 mg tablet See Rx Instructions .Route 11/22/24 08/17/25 Rx .COMPLEX #90 tabs valacyclovir 500 mg tablet See Rx Instructions .Route 11/29/24 08/17/25 Rx .COMPLEX #90 tabs famotidine 20 mg tablet 20 mg PO BID #180 tabs 02/25/25 08/17/25 Rx metformin 1,000 mg tablet 1,000 mg PO BID #180 tabs 03/17/25 08/17/25 Rx blood sugar diagnostic (Blood #100 ea 06/15/25 07/06/25 Rx Glucose Test strips) blood-glucose meter #1 ea 06/15/25 07/06/25 Rx semaglutide 0.25 mg or 0.5 mg (2 0.25 mg (0.368 mL) subcut WEEKLY 06/20/25 08/17/25 Rx mg/3 mL) subcutaneous pen injector #3 mL (Ozempic) ascorbic acid (vitamin C) 250 mg 250 mg PO DAILY 08/17/25 08/17/25 History tablet (Vitamin C) hydrocodone 5 mg-acetaminophen 325 1 tablet PO Q6H 08/17/25 08/17/25 History mg tablet multivitamin (Daily Multi-Vitamin 1 tablet PO DAILY 08/17/25 08/17/25 History tablet) Allergies Allergy/AdvReac Type Severity Reaction Status Date / Time No Known Allergies Allergy Verified 08/17/25 13:04 Exam Const: General: no acute distress Resp: Effort & Inspection: normal respiratory effort GI: Inspection: non-distended GI Palp: No abdominal tenderness and No Guarding due to palpation present (GI) Auscultation: normal bowel sounds Assessment and Plan Assessment and plan (1) Renal calculus: Code(s): N20.0 - Calculus of kidney Status: Acute Assessment and Plan: Cystoscopy, right ureteroscopy with laser lithotripsy, stone extraction with possible right retrograde pyelography and stent replacement
[2025-08-25] VITALS (18 sets, daily range): BP systolic 107–135; BP diastolic 47–90; PULSE 71–89; RESP 12–22; TEMP 36.1–37; O2SAT 94–100; BMI 24.3
--- NOTE | ~2025-08-25 | CT_ITS ---
CT ABDOMEN AND PELVIS WITHOUT CONTRAST Clinical History: Gross hematuria Comparison: CT abdomen and pelvis 06/30/2025 Intervening abdominal x-rays Technique: Unenhanced axial images lung bases to symphysis pubis Coronal, sagittal reformats CT images acquired with automatic exposure control for dose reduction DLP: 183 mGy-cm Findings: Without intravenous contrast, sensitivity for detecting visceral parenchymal abnormalities decreased. Lung bases: Clear. Visualized heart and pericardium: Unremarkable. Liver: Cirrhotic contour. Gallbladder: Removed. Spleen: Unremarkable. Pancreas: Atrophy. Adrenal glands: Unremarkable. Kidneys: Right lwzori-apeeoi-J ureteral stent. Stranding around the renal hilum. No hydronephrosis. Stones. Left kidney- No hydronephrosis. A few small stones. Small exophytic calcified cyst. Distal esophagus/stomach: Small hiatal hernia and/or distal esophageal wall thickening. Small bowel loops: Normal caliber and wall thickness. Colon: Normal caliber and wall thickness. Normal RLQ appendix. Nodes: No enlarged nodes. Peritoneum: No ascites. No free intraperitoneal air. Urinary bladder: Unremarkable. Uterus: Removed. Adnexa: No masses. Bones: No acute bony abnormality. Soft tissues: Unremarkable. Unopacified abdominal aorta: No aneurysmal dilatation. IMPRESSION: 1. Bilateral nephrolithiasis persists. 2. Right double-J ureteral stent in place. Reviewed, dictated and finalized at location R.
--- NOTE | ~2025-08-25 | XR_ITS ---
EXAMINATION: XR retrograde pyelo w/stent RT DATE: 08/25/2025 10:39 INDICATION: Right-sided nephrolithiasis TECHNIQUE: 140 fluoroscopic images of the abdomen and pelvis were obtained procedure performed by Dr. Cheng. Radiologist was not present for the imaging or procedure. The amount of fluoroscopy time used during this procedure was 1.2 minutes. The dose area product was 1.47 mGym^2. COMPARISON: 07/01/2025 FINDINGS: Hand Miter Operator images demonstrate a right internal ureteral stent in expected position with loops formed of expected position of the bladder and right renal pelvis. Left-sided but no right-sided renal stone are seen. Cholecystectomy clips in the right upper quadrant. Subsequent images demonstrate cannulation of the right ureter with advancement of a wire and catheter into a lower pole calyx of the right kidney. Contrast injection demonstrates opacification of the mildly dilated right renal collecting system. There is accumulation of contrast within an ovoid region projecting over the central right kidney which appears separate from the renal pelvis which appears to drain through the right renal vein into the inferior vena cava. Final images demonstrate placement of a right internal ureteral stent which is also in expected position with loops formed over the expected position of the right renal pelvis and in the bladder. IMPRESSION: 1. Successful exchange of a right intrarenal stent which is in expected position on the final image. 2. Contrast injected into the mildly dilated right renal collecting system drains through the right renal vein into the inferior vena cava suggesting possible renal venous fistula. Findings were discussed with Dr. Cheng at 10:45 AM. Reviewed, dictated and finalized at location A. IMPRESSION: 1. Successful exchange of a right intrarenal stent which is in expected positio n on the final image. 2. Contrast injected into the mildly dilated right renal collecting system drai ns through the right renal vein into the inferior vena cava suggesting possible renal venous fistula. Findings were discussed with Dr. Cheng at 10:45 AM.
--- NOTE | 2025-08-25 06:17 | WPDHPUPDATE1 ---
History and Physical Update Update Date/Time: 08/25/25 06:17 History and Physical has been reviewed, including an updated exam of the patient. There are NO changes in the patient's condition. Risks, benefits, and alternatives have been discussed and questions answered. Patient agrees to proceed with procedure.
[2025-08-25] MEDS: LACTATED RINGERS 1,000 ML 30 ML IV CONT ×2 (08:55→11:05)
--- NOTE | 2025-08-25 09:20 | WPDANESEPPF ---
Anes - Initial Pre Proc Eval Procedure: Operation Date: 08/25/25 10:00 Proposed Procedures p Cystoscopy, Right Ureteroscopy, Possible Right Retrograde Pyelogram, Possible Right Stone Extraction, Possible Right Stent Removal/Replacement, Possible Holmium Laser - Addison Cheng MD Date/Time: 08/25/25 09:20 Surgeon: Addison Cheng MD Pre Op Diagnosis: right kidney stone Patient Data Age: 65 Gender: F Height: 1.52 m Weight: 61.3 kg Allergies Allergy/AdvReac Type Severity Reaction Status Date / Time No Known Allergies Allergy Verified 08/17/25 13:04 Home Medications ?Medication ?Instructions ?Recorded ?Confirmed ?Type clopidogrel 75 mg tablet See Rx Instructions .Route 11/22/24 08/25/25 Rx Held on 07/15/25. .COMPLEX #90 tabs Instructions: Resume on 07/17/25. glimepiride 2 mg tablet See Rx Instructions .Route 11/22/24 08/25/25 Rx .COMPLEX #90 tabs lisinopril 5 mg tablet See Rx Instructions .Route 11/22/24 08/25/25 Rx .COMPLEX #90 tabs montelukast 10 mg tablet See Rx Instructions .Route 11/22/24 08/25/25 Rx .COMPLEX #90 tabs rosuvastatin 20 mg tablet See Rx Instructions .Route 11/22/24 08/25/25 Rx .COMPLEX #90 tabs valacyclovir 500 mg tablet See Rx Instructions .Route 11/29/24 08/25/25 Rx .COMPLEX #90 tabs metformin 1,000 mg tablet 1,000 mg PO BID #180 tabs 03/17/25 08/25/25 Rx blood sugar diagnostic (Blood #100 ea 06/15/25 07/06/25 Rx Glucose Test strips) blood-glucose meter #1 ea 06/15/25 07/06/25 Rx semaglutide 0.25 mg or 0.5 mg (2 0.25 mg (0.368 mL) subcut WEEKLY 06/20/25 08/17/25 Rx mg/3 mL) subcutaneous pen injector #3 mL (Ozempic) ascorbic acid (vitamin C) 250 mg 250 mg PO DAILY 08/17/25 08/25/25 History tablet (Vitamin C) hydrocodone 5 mg-acetaminophen 325 1 tablet PO Q6H 08/17/25 08/25/25 History mg tablet multivitamin (Daily Multi-Vitamin 1 tablet PO DAILY 08/17/25 08/25/25 History tablet) famotidine 20 mg tablet 20 mg PO BID #180 tabs 08/24/25 08/25/25 Rx Laboratory Tests 08/25/25 08:54 POC Capillary Glucose 172 H mg/dl (65-105) Patient hx anesthesia problems: none Family hx anesthesia problems: none Results Review: All pre-operative results and documents have been reviewed as part of the pre-operative evaluation. [facility] Past Medical History Medical History Chronic obstructive pulmonary disease Renal calculus Tobacco abuse Type 2 diabetes mellitus Transient ischemic attack Antiplatelet or antithrombotic long-term use History of TIA (transient ischemic attack) Reported history of multiple TIAs over 10 years ago and subsequently was started on Plavix Irritable bowel Coronary artery disease Surgical History Surgical History Hx of exploratory laparotomy Exploratory laparotomy with abdominal adhesiolysis performed 01/22/23 History of total abdominal hysterectomy and bilateral salpingo-oophorectomy History of cholecystectomy Open cholecystectomy Family History Family History Mother Hypertension Sibling Breast cancer Diabetes mellitus Hypertension Social History Social History Social History: Surrogate medical decision maker: Russellranda Mueller, friend. Code status: Full code. 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 ) Neurological: alert and oriented Last oral intake: >/= 8 hours ASA classification: III Emergent: no Anesthetic plan: proceed Anesthesia type and monitoring: general LMA and standard monitoring Results Review: All pre-operative results and documents have been reviewed as part of the pre-operative evaluation. HTN, hyperlipidemia, Smoker, 2ppd for many years, smoked this am, hx of COPD stable of recent. Pt can walk 1 fos, no cp or sob. Informed Consent: The patient's anesthetic plan and its attendant risks and benefits were discussed with the patient/family/POA. Questions were solicited and answers provided to the satisfaction of the patient/family/POA.
[2025-08-25] MEDS: ceFAZolin 2 GM in SODIUM CHLORIDE 0.9% IV 50 ML 100 ML IVPB (09:40)
--- NOTE | 2025-08-25 11:04 | W.PM.PROC2 ---
Procedure Note - Detailed Date of Procedure 08/25/25 Pre-op Diagnosis Right kidney stone Post-op Diagnosis Other (1. Spontaneously passed right renal stones 2. Calyceal-venous fistula) Procedure Performed Cystoscopy, right ureteroscopy, right retrograde pyelography, right ureteral stent replacement. Surgeon Addison Cheng MD Anesthesia General Findings 1. Calyceal-venous communication with injection of retrograde pyelogram contrast 2. No significant residual renal calculi identifiable Description of Procedure This patient is brought to the operative suite where she was prepped and draped in routine sterile fashion while in a dorsal lithotomy position after the uneventful induction of a general anesthetic. Cystoscopy was undertaken with a 19 F rigid cystoscope. Bladder shows edema around the right ureteral orifice in reaction to her indwelling ureteral stent. The remainder of the bladder mucosa is normal without hyperemia or other foreign bodies. Tip of the indwelling stent is grasped in a 0.035 in glidewire was advanced through the stent into the right renal pelvis under fluoroscopy. The distal ureter is dilated with an 8F/10F dilator with ease an a 0.35 in safety wire was placed. A 11 F/13 F ureteral access sheath was placed in the mid to proximal ureter with ease. Upon withdrawal the inner sheath, however, Site noticed about 3-5 cc of venous blood. Ureteroscopy was undertaken with a 7.5 F flexible ureteral scope. Collecting system was first inspected and showed no obvious signs of injury to the UPJ or collecting system. I then injected contrast to outline the collecting system ensure thorough inspection of all calices. With contrast injection there is clear extravasation out an upper pole calyx into the renal vein with flow out the vein into the vena cava. I carefully inspected the upper pole calyx both within without ureteroscopic irrigation. There was no apparent significant bleed coming from the upper pole or elsewhere in the collecting system. Again I had seen no significant stones aside from a couple dust particles so made no attempt to extract anything. Carefully inspected the ureter upon withdrawal of the ureteral scope in saw no injury to the ureteral mucosa. Placed a 6 F variable length stent. I carefully observed the ureteral orifice for several minutes and saw no significant bleed from the orifice. I placed a 20 F Aguilar catheter and transferred her to the PACU. Patient had been hemodynamically stable throughout this procedure. Throughout the procedure we used saline irrigation. Drains Yes Pathology None sent Complications No immediate complications
[2025-08-25 11:10] LABS: Hematocrit 37.0 % (37.0-47.0); Hemoglobin 12.0 g/dL (12.0-15.0); Immature Granulocyte Percent A 0.2 % (0-0.5); Lymphocytes Absolute Auto 2.40 K/mm3 (0.9-3.2); Mean Corpuscular HGB Conc 32.4 g/dl (32-36); Mean Corpuscular Hemoglobin 31.2 pg (26-34); Mean Corpuscular Volume 96.1 fl (80-100); Nucleated Red Blood Cells Absolute Auto 0.000 K/mm3 (0.0-0.012); Nucleated Red Blood Cells Perc 0.0 % (0.0-0.2); Platelet Count Result 235 k/mm3 (150-375); Red Blood Count 3.85 M/mm3 (4.2-5.4); White Blood Count 8.8 K/mm3 (4.5-10.0)
[2025-08-25] MEDS: fentaNYL CITRATE INJ (*CRX) 100 MCG/2 ML VIAL 25 MCG IV PUSH ×4 (11:17→12:29)
--- NOTE | 2025-08-25 12:03 | SUR.PHASEI ---
1200: Patient meets PACU discharge criteria, unit bed unavailable at this time. Patient placed in extended recovery status.
--- NOTE | 2025-08-25 13:45 | ADMGEN ---
This patient, Annette Camacho, was admitted to IMU Room 211-01. Patient/family oriented to hospital policies and general routines including ID bracelet, bed and alarms, visiting hours, pain management, procedures, bathroom and other care routines, personal items, smoking policy, room service/diet, and visiting hours. Information on how to activate the Rapid Response Team has been discussed. Patient/Family are encouraged to report perceived risks to care and to ask questions if they do not understand what they are told or what they should do.
[2025-08-25] MEDS: DEXTROSE 5%/0.45% SOD CHL 1,000 ML 100 ML IV CONT (14:18)
[2025-08-25 15:39] LABS: Hematocrit 37.2 % (37.0-47.0); Hemoglobin 12.4 g/dL (12.0-15.0)
[2025-08-25] MEDS: HYDROcodone/acetaminophen (*CRX) 5-325 MG TABLET 1 TAB PO (17:48)
[2025-08-25 21:30] LABS: Hematocrit 34.1 % (37.0-47.0); Hemoglobin 11.3 g/dL (12.0-15.0)
[2025-08-26] VITALS (8 sets, daily range): BP systolic 118–142; BP diastolic 54–68; PULSE 66–96; RESP 15–16; TEMP 36.7–36.8; O2SAT 98–100
[2025-08-26 03:41] LABS: Hematocrit 33.3 % (37.0-47.0); Hemoglobin 10.8 g/dL (12.0-15.0)
--- NOTE | 2025-08-26 07:17 | P.PNUR_ITS ---
Progress Note: A&P Assessment and Plan (1) Flank pain: Code(s): R10.9 - Unspecified abdominal pain Status: Acute Assessment and Plan: * Mild, non-specific abd. pain discomfort / hemodynamically stable. * Non-contrast CT abd/pelvis this morning and another set of labs Subjective Subjective Date/Time Seen: 08/26/25 07:17 Interval history: Mild right flank pain this morning, hemodynamically stable overnight Review of Systems Review of Systems: All systems reviewed & are unremarkable except as noted in HPI and below Exam Const: General: no acute distress Resp: Effort & Inspection: normal respiratory effort GI: Inspection: non-distended GI Palp: Yes abdominal tenderness (mild) and No Guarding due to palpation present (GI) Auscultation: normal bowel sounds Objective Data Vital Signs Vital Signs: Vital Signs - 24 hr 08/25/25 08:22 08/25/25 10:32 08/25/25 10:45 Temperature 97.8 F 96.9 F L Pulse Rate 86 83 82 Respiratory Rate 22 H 12 14 Blood Pressure 124/90 129/64 134/66 Pulse Oximetry 99 100 100 Oxygen Delivery Room Air Simple Face Mask Simple Face Mask Oxygen Flow Rate 6 6 08/25/25 11:00 08/25/25 11:05 08/25/25 11:15 Temperature Pulse Rate 82 82 Respiratory Rate 16 18 Blood Pressure 127/52 L 127/58 L Pulse Oximetry 100 96 Oxygen Delivery Simple Face Mask Room Air Room Air Oxygen Flow Rate 6 08/25/25 11:30 08/25/25 11:45 08/25/25 12:00 Temperature Pulse Rate 84 80 81 Respiratory Rate 18 18 18 Blood Pressure 135/67 121/56 L 107/56 L Pulse Oximetry 97 96 98 Oxygen Delivery Room Air Room Air Room Air Oxygen Flow Rate 08/25/25 12:30 08/25/25 13:00 08/25/25 13:20 Temperature 96.9 F L Pulse Rate 82 83 81 Respiratory Rate 18 18 18 Blood Pressure 122/58 L 114/56 L 121/57 L Pulse Oximetry 94 97 97 Oxygen Delivery Room Air Room Air Room Air Oxygen Flow Rate 08/25/25 13:42 08/25/25 14:00 08/25/25 16:00 Temperature 98 F 98.1 F Pulse Rate 80 78 81 Respiratory Rate 20 18 Blood Pressure 135/48 L 113/60 Pulse Oximetry 98 94 Oxygen Delivery Oxygen Flow Rate 08/25/25 16:00 08/25/25 18:00 08/25/25 20:00 Temperature 98.6 F Pulse Rate 71 89 85 Respiratory Rate 16 Blood Pressure 114/47 L Pulse Oximetry 97 Oxygen Delivery Oxygen Flow Rate 08/25/25 20:00 08/25/25 22:00 08/25/25 23:54 Temperature 98.5 F Pulse Rate 85 80 73 Respiratory Rate 15 Blood Pressure 112/47 L Pulse Oximetry 97 Oxygen Delivery Oxygen Flow Rate 08/26/25 00:00 08/26/25 02:00 08/26/25 04:00 Temperature Pulse Rate 96 66 96 Respiratory Rate Blood Pressure Pulse Oximetry Oxygen Delivery Oxygen Flow Rate 08/26/25 04:00 08/26/25 06:00 Temperature 98.3 F Pulse Rate 70 68 Respiratory Rate 16 Blood Pressure 142/68 H Pulse Oximetry 98 Oxygen Delivery Oxygen Flow Rate Intake/Output Intake/Output: Intake & Output 08/23/25 08/24/25 08/25/25 08/26/25 23:59 23:59 23:59 23:59 Intake Total 1990 Output Total 1480 350 Balance 510 -350 Meds/Results Medications: Active Medications Generic Name Dose Route Start Last Admin Trade Name Freq PRN Reason Stop Dose Admin Hydrocodone Bitart/Acetaminophen 1 tab 08/25/25 11:12 08/25/25 17:48 Hydrocodone/Acetaminophen (*Crx) 5-325 Mg Tablet PO 1 tab Q4H PRN Administration Moderate Pain (4-6) Dextrose 12.5 gm 08/25/25 16:55 Dextrose 50% 25 Gm/50 Ml Syringe IV PUSH PRN PRN Hypoglycemia Protocol Glucagon 1 mg 08/25/25 16:55 Glucagon For Inj 1 Mg Vial IM PRN PRN Hypoglycemia Protocol Glucose 15 gm 08/25/25 16:55 Glucose Oral Gel 15 Gm Of Glucse In 37.5 Gm Tube PO PRN PRN Hypoglycemia Protocol Dextrose 1,000 mls @ 100 mls/hr 08/25/25 16:55 Dextrose 5% 1,000 Ml IVPB PRN PRN Hypoglycemia Protocol Metformin HCl 1,000 mg 08/25/25 17:00 08/25/25 17:46 Metformin Hcl 500 Mg Tablet PO 1,000 mg BIDWM SUSHMA Administration Morphine Sulfate 1 mg 08/25/25 11:12 Morphine Sulfate (*Crx) 4 Mg/Ml Inj IV PUSH Q4H PRN Pain Rated 7-10 Ondansetron HCl 4 mg 08/25/25 11:12 Ondansetron Inj 4 Mg/2 Ml Vial IV PUSH Q6H PRN Nausea And Vomiting Radiology Results: ITS Impressions Retrograde Pyelogram 08/25/25 12:26 IMPRESSION: 1. Successful exchange of a right intrarenal stent which is in expected position on the final image. 2. Contrast injected into the mildly dilated right renal collecting system drains through the right renal vein into the inferior vena cava suggesting possible renal venous fistula. Findings were discussed with Dr. Cheng at 10:45 AM. Labs Labs: Laboratory Results - last 24 hr 08/25/25 08/25/25 08/25/25 08:54 11:03 11:15 WBC 8.8 RBC 3.85 L Hgb 12.0 Hct 37.0 MCV 96.1 MCH 31.2 MCHC 32.4 RDW 13.3 Plt Count 235 MPV 9.2 Immature Gran % (Auto) 0.2 Neut % (Auto) 58.8 Lymph % (Auto) 27.3 [place] % (Auto) 7.1 Eos % (Auto) 6.5 H Baso % (Auto) 0.1 L Lymph # (Auto) 2.40 [place] # (Auto) 0.6 Eos # (Auto) 0.6 H Baso # (Auto) 0.0 Abs Immat Gran (auto) 0.02 Absolute Neuts (auto) 5.2 Absolute Nucleated RBC 0.000 Nucleated RBC % 0.0 POC Capillary Glucose 172 H 172 H Blood Type AB Positive Antibody Screen Negative 08/25/25 08/25/25 08/25/25 15:34 16:21 19:51 WBC RBC Hgb 12.4 Hct 37.2 MCV MCH MCHC RDW Plt Count MPV Immature Gran % (Auto) Neut % (Auto) Lymph % (Auto) [place] % (Auto) Eos % (Auto) Baso % (Auto) Lymph # (Auto) [place] # (Auto) Eos # (Auto) Baso # (Auto) Abs Immat Gran (auto) Absolute Neuts (auto) Absolute Nucleated RBC Nucleated RBC % POC Capillary Glucose 279 H 264 H Blood Type Antibody Screen 10/30/25 10/31/25 10/31/25 21:25 03:06 07:13 WBC RBC Hgb 11.3 L 10.8 L Hct 34.1 L 33.3 L MCV MCH MCHC RDW Plt Count MPV Immature Gran % (Auto) Neut % (Auto) Lymph % (Auto) [place] % (Auto) Eos % (Auto) Baso % (Auto) Lymph # (Auto) [place] # (Auto) Eos # (Auto) Baso # (Auto) Abs Immat Gran (auto) Absolute Neuts (auto) Absolute Nucleated RBC Nucleated RBC % POC Capillary Glucose 139 H Blood Type Antibody Screen
[2025-08-26] MEDS: HYDROcodone/acetaminophen (*CRX) 5-325 MG TABLET 1 TAB PO (07:47)
[2025-08-26 11:09] LABS: Hematocrit 36.0 % (37.0-47.0); Hemoglobin 11.8 g/dL (12.0-15.0); Mean Corpuscular HGB Conc 32.8 g/dl (32-36); Mean Corpuscular Hemoglobin 31.3 pg (26-34); Mean Corpuscular Volume 95.5 fl (80-100); Platelet Count Result 249 k/mm3 (150-375); Red Blood Count 3.77 M/mm3 (4.2-5.4); White Blood Count 11.0 K/mm3 (4.5-10.0)
[2025-08-26 11:23] LABS: Anion Gap 9 mmol/L (4-12); Blood Urea Nitrogen 11 mg/dL (7-17); Calcium 9.5 mg/dL (8.4-10.2); Carbon Dioxide 26 mmol/L (22-30); Chloride 103 mmol/L (98-107); Estimated CRCL calculation 71 ml/min; Estimated Glomerular Filt Rate > 60; Glucose 152 mg/dL (65-110); Potassium 3.7 mmol/L (3.4-5.0); Sodium 138 mmol/L (137-145)
--- NOTE | 2025-08-26 13:20 | P.DS_ITS ---
DS: Admitting Diagnosis Discharge Date 08/26/2025 Admitting Diagnosis Right renal calculi DS: Discharge Diagnosis Discharge Diagnosis (1) Renal calculus: Code(s): N20.0 - Calculus of kidney Status: Acute (2) Hematuria: Qualifiers: Hematuria type: unspecified type Qualified Code(s): R31.9 - Hematuria, unspecified Code(s): R31.9 - Hematuria, unspecified Status: Acute DS: Summary Hospital Course Hospital Course: Patient is known to have right renal stones. She is status post ESWL with residual fragments. On the morning admission she underwent cystoscopy with right ureteroscopy. This demonstrated very few, tiny fragments in her right kidney. With retrograde pyelography, however, there was extravasation contrast out her upper pole calyx and into her renal vein vena cava. The ureteral stent was placed in Aguilar catheter was positioned and the procedure was terminated. From that point forward she was perfectly stable. She had no significant gross hematuria. She she was comfortable without significant flank pain. She had no tachycardia or hypotension. Hemoglobin and hematocrit for perfectly stable on follow-up CT scan the mild following morning showed no suspicious perinephric bleeding. In light of that she was discharged with limitations on activity. She will follow-up in a couple weeks for stent removal. Time Spent with Patient Time attestation: Total time spent providing and/or coordinating discharge services: DS: Data Data Completed and Pending Labs on day of discharge: Labs from last 24 hours 08/26/25 08/26/25 08/26/25 11:23 11:01 07:13 WBC 11.0 H RBC 3.77 L Hgb 11.8 L Hct 36.0 L MCV 95.5 MCH 31.3 MCHC 32.8 RDW 13.2 Plt Count 249 MPV 9.5 Sodium 138 Potassium 3.7 Chloride 103 Carbon Dioxide 26 Anion Gap 9 BUN 11 Creatinine 0.59 L Estim Creat Clear Calc 71 Estimated GFR > 60 Glucose 152 H POC Capillary Glucose 150 H 139 H Calcium 9.5 08/26/25 08/25/25 08/25/25 03:06 21:25 19:51 WBC RBC Hgb 10.8 L 11.3 L Hct 33.3 L 34.1 L MCV MCH MCHC RDW Plt Count MPV Sodium Potassium Chloride Carbon Dioxide Anion Gap BUN Creatinine Estim Creat Clear Calc Estimated GFR Glucose POC Capillary Glucose 264 H Calcium 08/25/25 08/25/25 16:21 15:34 WBC RBC Hgb 12.4 Hct 37.2 MCV MCH MCHC RDW Plt Count MPV Sodium Potassium Chloride Carbon Dioxide Anion Gap BUN Creatinine Estim Creat Clear Calc Estimated GFR Glucose POC Capillary Glucose 279 H Calcium Discharge Plan Discharge Patient Disposition: Home Discharge Instructions: 1) Activity: no driving or important decisions x24 hours. 2) Diet: resume your normal, pre-admission diet. 3) Follow-up: as already arranged for stent removal Patient Instructions: How to Stop Smoking (GEN) Patient Language: Urugu[place] Discharge Orders: Discharge Order (Routine); Ordered 08/26/25 Ordered By: Addison Cheng Discharge Medications: Continued ascorbic acid (vitamin C) [Vitamin C] 250 mg tablet 250 mg PO DAILY multivitamin [Daily Multi-Vitamin] Tablet 1 tablet PO DAILY hydrocodone-acetaminophen 5-325 mg tablet 1 tablet PO Q6H Patient Comments: PRN lisinopril 5 mg tablet See Rx Instructions .ROUTE .COMPLEX Qty: 90 3RF Dose Instruction: TAKE 1 TABLET DAILY Rx Instructions: TAKE 1 TABLET DAILY glimepiride 2 mg tablet See Rx Instructions .ROUTE .COMPLEX Qty: 90 3RF Dose Instruction: TAKE 1 TABLET DAILY Rx Instructions: TAKE 1 TABLET DAILY montelukast 10 mg tablet See Rx Instructions .ROUTE .COMPLEX Qty: 90 3RF Dose Instruction: TAKE 1 TABLET AT BEDTIME Rx Instructions: TAKE 1 TABLET AT BEDTIME rosuvastatin 20 mg tablet See Rx Instructions .ROUTE .COMPLEX Qty: 90 3RF Dose Instruction: TAKE 1 TABLET AT BEDTIME Rx Instructions: TAKE 1 TABLET AT BEDTIME valacyclovir 500 mg tablet See Rx Instructions .ROUTE .COMPLEX Qty: 90 3RF Dose Instruction: TAKE 1 TABLET AT BEDTIME Rx Instructions: TAKE 1 TABLET AT BEDTIME metformin 1,000 mg tablet 1,000 mg PO BID Qty: 180 1RF (DME) blood-glucose meter Misc See Rx Instructions .Route Qty: 1 0RF Rx Instructions: Use to check blood sugars once daily (DME) Blood Glucose Test Strip See Rx Instructions .Route Qty: 100 1RF Rx Instructions: Use to check blood sugars once daily Ozempic 0.25 mg or 0.5 mg (2 mg/3 mL) pen injector 0.25 mg subcut WEEKLY Qty: 3 0RF Patient Comments: [facility] won't fill it, something about a card that I need to talk to my Dr. Rx Instructions: for 4 weeks, then inject 0.5 weekly for 4 weeks. famotidine 20 mg tablet 20 mg PO BID Qty: 180 1RF Held clopidogrel 75 mg tablet See Rx Instructions .ROUTE .COMPLEX Qty: 90 3RF Hold Instructions: Resume on 08/30/25. Dose Instruction: TAKE 1 TABLET DAILY Patient Comments: Pt is stopping 08.18.25 Rx Instructions: TAKE 1 TABLET DAILY
== END 2025-08-26 14:18 | disposition home or self-care (01) ==
LOC: ANHSURGERY 07:53 → ANHIMU 16:17
PROVIDERS: Anesthesiology; PCP Nurse Practitioner; Visit Provider Urology
PROC: (CPT 52352; principal; 2025-08-25 10:00)
DX: N20.0 Calculus of kidney (principal); I10 Essential (primary) hypertension; E78.5 Hyperlipidemia, unspecified; J44.9 Chronic obstructive pulmonary disease, unspecified; E11.9 Type 2 diabetes mellitus without complications; K58.9 Irritable bowel syndrome, unspecified; I25.10 Atherosclerotic heart disease of native coronary artery without angina pectoris; F17.210 Nicotine dependence, cigarettes, uncomplicated; Z79.02 Long term (current) use of antithrombotics/antiplatelets; Z79.84 Long term (current) use of oral hypoglycemic drugs; Z79.85 Long-term (current) use of injectable non-insulin antidiabetic drugs; Z79.891 Long term (current) use of opiate analgesic; Z98.890 Other specified postprocedural states; Z90.49 Acquired absence of other specified parts of digestive tract; Z86.73 Personal history of transient ischemic attack (TIA), and cerebral infarction without residual deficits; Z80.3 Family history of malignant neoplasm of breast
CPT/HCPCS: 52332; 36415; 74176; 74420; 80048; 82948; 85014; 85018; 85025; 85027; 86850; 86900; 86901; J0690; A9270; C1769; C1894; C2617; J1100; J2003; J2250; J2405; J2704; J3010; J7120; Q9966